=== PATIENT | female | born 1940 | race Caucasian/White ===

== ENCOUNTER 2021-09-10 13:06 | Inpatient (IN) ==
[2021-09-10] MEDS ORDERED: SODIUM CHLORIDE 0.9% 500 ML IV SCH (13:30)
--- NOTE | 2021-09-10 13:40 | Emergency Department Note ---
Impression & Plan Acute hyponatremia, Hypomagnesemia, Anemia, Hypocalcemia ED Provider Note NAME: LINDEN BARNES AGE: 80 SEX: F : 1940 ARRIVES VIA: Ambulance INFORMANT: [Patient][nursing] ED PROVIDER(S): [Joe Carlson MD] CHIEF COMPLAINT: Abnormal laboratories HISTORY OF PRESENT ILLNESS: The patient is a 80-year-old female who presents to the ED with a reportedly low sodium. She currently has no complaints. She is not short of breath, there is no chest pain or abdominal pain. There has been no urinary complaint. No vomiting or diarrhea. She denies being weak or dizzy. She is unsure why the lab work was performed. Looking at her records, her sodium was recorded at 120. REVIEW OF SYSTEMS: See HPI for pertinent positives and negatives. A total of ten systems were reviewed and were otherwise negative. PMHx/PSHx: See Below SOCIAL HISTORY: See Below. PHYSICAL EXAM: GENERAL: Patient is in no acute distress. HEENT: No acute trauma, normocephalic atraumatic, mucous membranes dry, no nasal congestion, no scleral icterus. NECK: No stridor, no adenopathy, no meningismus, trachea is midline. LUNGS: Clear to auscultation bilaterally when listening anterior, no wheeze, no rhonchi, breath sounds equal. HEART: 2/6 systolic murmur, regular rate and rhythm. ABDOMEN: Soft, nontender, bowel sounds positive, no peritonitis. EXTREMITIES: No cyanosis, moderate bilateral pedal edema, full range of motion of all the joints without pain or difficulty, no signs for acute trauma. NEUROLOGIC: Awake and alert, moves all extremities, no speech slur. SKIN: No rash, no jaundice, no diaphoresis. Rectal: Hemorrhoids noted with some blood on her depends. Digital exam reveals brown stool which is heme-negative. DIFFERENTIAL DIAGNOSIS: Infection, dehydration, metabolic abnormality, hypo/hyperglycemia, electrolyte disturbance, anemia, hypoxia, cardiac sources, medication reaction, renal failure, as well as other pathologies. EMERGENCY DEPARTMENT COURSE/PROCEDURES: ECG: Indication was electrolyte abnormalities. The ECG shows what appears to be a ventricular pacemaker with an underlying atrial flutter. There are inverted T waves in the inferior and lateral leads. No ST elevation. A PVC is seen. The QTc is 404. Compared to an ECG from 18 January 2020, the PVC is noted today. Today's pacemaker function is intermittent, not continuous. Continuous Cardiac Monitoring: An order was placed for continuous cardiac monitoring. The monitor shows a rate of 60 with a ventricular pacemaker. MEDICAL DECISION MAKING: There is no leukocytosis. The patient is anemic with a hemoglobin of 8.9. A rectal exam was performed, the stool was brown and heme-negative. Hemorrhoids were noted. There is a normal platelet count. Sodium was quite low at a critical value of 119. Chloride was also low. No renal failure. Magnesium low at 1.4. Calcium low at 7.9. No concerning liver enzyme elevation. The patient appeared to be in a euthyroid state. Urinalysis showed bacteria but no infection. Digoxin level was therapeutic. COVID test returned negative. Chest x-ray did not show pneumonia, some pulmonary congestion was noted. On exam, the patient did not appear febrile or toxic. She had no current complaints. Patient received IV saline, 1 L in total. She received IV magnesium. The patient is in need of a hospital stay. She has critical electrolyte abnormalities that require correction. I did speak with the patient and case management. The on-call hospitalist was consulted. 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 behavioral disturbance Tachy-karthik syndrome Surgical History H/O hysterectomy with oophorectomy History of appendectomy History of laparoscopic cholecystectomy Status post placement of cardiac pacemaker Family History Father Diabetes Mother Heart disease Hypertension Social History Smoking Status: Never smoker Hx Alcohol Use: Yes Hx Substance Use: No Preferred Language: Wallisian Communication Ability: Effective Outboard Motor Mechanic Required: No Beliefs That Will Affect Care: Buddhism Buddhism Beliefs: yarsanism Current Living Situation: Half-Way Feels Safe at Home: Yes Assistive Devices: Denture - Upper, Denture - Lower, Glasses and Walker Allergies Allergies Allergy/AdvReac Type Severity Reaction Status Date / Time Penicillins Allergy Intermediate Rash Verified 09/10/21 16:43 codeine AdvReac Intermediate Headache Verified 09/10/21 16:43 Opioids - Morphine Analogues AdvReac Intermediate Headache Verified 09/10/21 16:43 Influenza Virus Vaccines AdvReac Unknown Unknown Verified 09/10/21 16:43 Home Meds Home Medications Medication Instructions Recorded Confirmed digoxin 125 mcg (0.125 mg) tablet 125 mcg PO DAILY 01/18/20 09/10/21 (Lanoxin) docusate sodium 100 mg capsule 100 mg PO BID 01/18/20 09/10/21 escitalopram oxalate 10 mg tablet 10 mg PO DAILY 01/18/20 09/10/21 (Lexapro) levothyroxine 100 mcg tablet 100 mcg PO DAILY 01/18/20 09/10/21 (Levoxyl) metoprolol tartrate 100 mg tablet 100 mg BID 01/18/20 09/10/21 (Lopressor) pantoprazole 40 mg tablet,delayed 40 mg PO DAILY 01/18/20 09/10/21 release (Protonix) acetaminophen 325 mg tablet 650 mg PO Q4H PRN 09/10/21 09/10/21 (Tylenol) albuterol sulfate 90 mcg/actuation 2 puff INHALATION Q6H PRN 09/10/21 09/10/21 aerosol inhaler aspirin 81 mg tablet,delayed 81 mg PO DAILY 09/10/21 09/10/21 release atorvastatin 80 mg tablet 80 mg PO HS 09/10/21 09/10/21 clonidine HCl 0.1 mg tablet 0.1 mg PO BID 09/10/21 09/10/21 diphenhydramine HCl 25 mg capsule 25 mg PO DIRECTED PRN MDD 2 09/10/21 09/10/21 (Benadryl) DOSES/24 HOURS epinephrine 0.3 mg/0.3 mL 0.3 mg IM DIRECTED PRN 09/10/21 09/10/21 injection, auto-injector (EpiPen) fenofibrate nanocrystallized 48 mg 48 mg PO DAILY 09/10/21 09/10/21 tablet furosemide 40 mg tablet (Lasix) 40 mg PO BID 09/10/21 09/10/21 hydralazine 50 mg tablet 50 mg PO TID 09/10/21 09/10/21 magnesium hydroxide 400 mg/5 mL 30 ml PO DAILY PRN 09/10/21 09/10/21 oral suspension (Milk of Magnesia) melatonin 5 mg tablet 5 mg PO HS 09/10/21 09/10/21 metformin 500 mg tablet 500 mg PO DAILY 09/10/21 09/10/21 phenylephrine-witch satya 0.25 1 applic TOPICAL BID PRN 09/10/21 09/10/21 %-50 % topical gel (Preparation H (phenylephrine,witch satya)) potassium chloride 10 mEq 10 meq PO DAILY 09/10/21 09/10/21 capsule,extended release triamcinolone acetonide 0.1 % 1 applic TOPICAL BID PRN 09/10/21 09/10/21 topical cream vit C 250 mg-vit E 90 mg-zinc 40 1 tab PO BID 09/10/21 09/10/21 mg-copper 1 [id number] capsule (PreserVision AREDS-2) Results & Data (ED) Vital Signs Vital Signs - 24 hr 09/10/21 13:16 09/10/21 13:28 09/10/21 13:34 Temperature 37.2 C Temperature Source Oral Pulse Rate 64 62 60 Pulse Rate [Apical] 60 Pulse Rate from SpO2 Sensor 64 Pulse Rhythm Regular Regular Pulse Rhythm [Apical] Regular Pulse Strength Normal Pulse Strength [Apical] Normal Respiratory Rate 22 22 Respiratory Effort / Characteristics Non-Labored Non-Labored Spontaneous Respiratory Depth Normal Normal Respiratory Pattern Regular Regular Blood Pressure 135/59 L Blood Pressure [Right Arm] 135/59 L Blood Pressure Mean 84 Blood Pressure Mean [Right Arm] 84 Blood Pressure Position Lying Blood Pressure Position [Right Arm] Lying Pulse Oximetry 97 95 95 Oxygen Delivery Method Room Air Room Air Sepsis Recent Fever Within 48 Hours No Sepsis New/Unexplained Change in Mental Status No Sepsis Action Taken by Nursing No Action Required 09/10/21 14:47 09/10/21 14:48 09/10/21 15:00 Temperature Temperature Source Pulse Rate 66 63 Pulse Rate [Apical] Pulse Rate from SpO2 Sensor 67 67 61 Pulse Rhythm Pulse Rhythm [Apical] Pulse Strength Pulse Strength [Apical] Respiratory Rate 22 22 Respiratory Effort / Characteristics Respiratory Depth Respiratory Pattern Blood Pressure 136/62 131/72 Blood Pressure [Right Arm] Blood Pressure Mean 86 91 Blood Pressure Mean [Right Arm] Blood Pressure Position Blood Pressure Position [Right Arm] Pulse Oximetry 97 98 91 Oxygen Delivery Method Sepsis Recent Fever Within 48 Hours Sepsis New/Unexplained Change in Mental Status Sepsis Action Taken by Half-Way Medications Current Medication List: was personally reviewed by me Laboratory Data Attestation: I reviewed the patient's lab results. Result diagrams: 09/10/21 14:25 09/10/21 14:25 Lab Results 09/10/21 09/10/21 09/10/21 Range/Units 13:41 14:25 14:25 WBC 9.20 (4.8-10.8) K/ul RBC 3.17 L (3.93-5.22) M/uL Hgb 8.9 L (12.0-16.0) g/dl Hct 26.2 L (34.1-44.9) % MCV 82.6 (80.0-100.0) fL MCH 28.1 (25.0-34.0) pg MCHC 34.0 (32.0-36.0) g/dL RDW Std Deviation 53.0 H (36.4-46.3) fL RDW Coeff of Sb 17.4 H (11.5-14.5) % Plt Count 270 (130-400) K/uL MPV 8.7 L (9.4-12.3) fL Immature Gran % (Auto) 0.9 % Neut % (Auto) 79.3 % Lymph % (Auto) 6.2 % Dawson % (Auto) 9.8 % Eos % (Auto) 3.4 % Baso % (Auto) 0.4 % Neut # (Auto) 7.30 H (1.4-6.5) K/uL Lymph # (Auto) 0.57 L (1.2-3.4) K/uL Dawson # (Auto) 0.90 H (0.24-0.82) K/uL Eos # (Auto) 0.31 (0-0.50) K/uL Baso # (Auto) 0.04 (0-0.2) K/uL Immature Gran # (Auto) 0.08 H (0.00-0.02) K/uL Sodium 119 L* (136-145) mmol/L Potassium 4.0 (3.5-5.1) mmol/L Chloride 87 L (98-107) mmol/L Carbon Dioxide 27 (21-32) mmol/L Anion Gap 5 (3-11) BUN 8 (6-23) mg/dl Creatinine 0.69 (0.6-1.2) mg/dl Est Cr Clr Drug Dosing Not Reportable Est GFR ( Amer) 96.6 ml/min Est GFR (Non-Af Amer) 83.4 ml/min BUN/Creatinine Ratio 11.6 (10-20) Glucose 154 H (70-99(Fasting)) mg/dl Calcium 7.9 L (8.5-10.1) mg/dl Magnesium 1.4 L (1.7-2.4) mg/dl Total Bilirubin 0.9 (0.2-1.0) mg/dl AST 30 (13-39) U/L ALT 28 (7-52) U/L Alkaline Phosphatase 94 (34-104) U/L Total Protein 5.4 L (6.0-8.3) gm/dl Albumin 2.7 L (3.4-5.0) gm/dl Globulin 2.7 (2.5-4.0) gm/dl Albumin/Globulin Ratio 1.0 (0.9-2) TSH (0.300-4.500) uIu/ml Urine Color Yellow Urine Appearance Clear (Clear) Urine pH 7.5 (4.5-7.5) Ur Specific [place] 1.007 (1.000-1.030) Urine Protein Negative (Negative) Urine Glucose (UA) Negative (Negative) Urine Ketones Negative (Negative) Urine Blood Negative (Negative) Urine Nitrite Negative (Negative) Urine Bilirubin Negative (Negative) Urine Urobilinogen Negative (Negative) Ur Leukocyte Esterase Trace H (Negative) Urine WBC (Auto) 1-5 (0-5) /hpf Urine RBC (Auto) 0-4 (0-4) /hpf U Hyaline Cast (Auto) 1-5 (0-5) /lpf U Epithel Cells (Auto) 5-10 H (0-5) /lpf Urine Bacteria (Auto) 4+ H (Negative) Digoxin (0.8-2.0) ng/ml SARS-CoV-2, RNA, NAAT (NEGATIVE) 09/10/21 09/10/21 09/10/21 Range/Units 14:25 14:25 14:39 WBC (4.8-10.8) K/ul RBC (3.93-5.22) M/uL Hgb (12.0-16.0) g/dl Hct (34.1-44.9) % MCV (80.0-100.0) fL MCH (25.0-34.0) pg MCHC (32.0-36.0) g/dL RDW Std Deviation (36.4-46.3) fL RDW Coeff of Sb (11.5-14.5) % Plt Count (130-400) K/uL MPV (9.4-12.3) fL Immature Gran % (Auto) % Neut % (Auto) % Lymph % (Auto) % Dawson % (Auto) % Eos % (Auto) % Baso % (Auto) % Neut # (Auto) (1.4-6.5) K/uL Lymph # (Auto) (1.2-3.4) K/uL Dawson # (Auto) (0.24-0.82) K/uL Eos # (Auto) (0-0.50) K/uL Baso # (Auto) (0-0.2) K/uL Immature Gran # (Auto) (0.00-0.02) K/uL Sodium (136-145) mmol/L Potassium (3.5-5.1) mmol/L Chloride (98-107) mmol/L Carbon Dioxide (21-32) mmol/L Anion Gap (3-11) BUN (6-23) mg/dl Creatinine (0.6-1.2) mg/dl Est Cr Clr Drug Dosing Est GFR ( Amer) ml/min Est GFR (Non-Af Amer) ml/min BUN/Creatinine Ratio (10-20) Glucose (70-99(Fasting)) mg/dl Calcium (8.5-10.1) mg/dl Magnesium (1.7-2.4) mg/dl Total Bilirubin (0.2-1.0) mg/dl AST (13-39) U/L ALT (7-52) U/L Alkaline Phosphatase (34-104) U/L Total Protein (6.0-8.3) gm/dl Albumin (3.4-5.0) gm/dl Globulin (2.5-4.0) gm/dl Albumin/Globulin Ratio (0.9-2) TSH 0.572 (0.300-4.500) uIu/ml Urine Color Urine Appearance (Clear) Urine pH (4.5-7.5) Ur Specific [place] (1.000-1.030) Urine Protein (Negative) Urine Glucose (UA) (Negative) Urine Ketones (Negative) Urine Blood (Negative) Urine Nitrite (Negative) Urine Bilirubin (Negative) Urine Urobilinogen (Negative) Ur Leukocyte Esterase (Negative) Urine WBC (Auto) (0-5) /hpf Urine RBC (Auto) (0-4) /hpf U Hyaline Cast (Auto) (0-5) /lpf U Epithel Cells (Auto) (0-5) /lpf Urine Bacteria (Auto) (Negative) Digoxin 0.9 (0.8-2.0) ng/ml SARS-CoV-2, RNA, NAAT NEGATIVE (NEGATIVE) Administered Medications Discontinued Medications Sodium Chloride (Nss) 500 mls @ 999 mls/hr IV .Q31M LATOSHA Stop: 09/10/21 14:00 Last Infusion: 09/10/21 15:38 Dose: 0 mls/hr Documented by: [id number] Admin: 09/10/21 15:06 Dose: 999 mls/hr Documented by: [id number] Magnesium Sulfate/Dextrose (Magnesium Sulfate / D5w) 1 gm in 100 mls @ 100 mls/hr IV Q1H LATOSHA Stop: 09/10/21 17:37 Last Admin: 09/10/21 17:13 Dose: 100 mls/hr Documented by: [id number] Infusion: 09/10/21 17:13 Dose: 100 mls/hr Documented by: [id number] Admin: 09/10/21 16:15 Dose: 100 mls/hr Documented by: [id number] Sodium Chloride (Nss 1000ml) 500 mls @ 999 mls/hr IV .Q31M ONE Stop: 09/10/21 16:08 Last Infusion: 09/10/21 17:13 Dose: 0 mls/hr Documented by: [id number] Admin: 09/10/21 16:16 Dose: 999 mls/hr Documented by: [id number] Imaging Data Radiologist's Impression: Chest X-Ray 09/10/21 13:23 SINGLE VIEW CHEST CLINICAL HISTORY: Generalized weakness. FINDINGS: An AP, portable, upright chest radiograph is compared to study dated 01/18/2020. A 2-lead cardiac pacemaker is unchanged in position. The heart is enlarged noting atherosclerotic calcification of the thoracic aorta. There is prominence of the pulmonary vasculature. There is bibasilar scarring/atelectasis. A small pleural effusion is noted on the left. No pneumothorax is seen. The skeletal structures are osteopenic. The bony thorax is grossly intact. IMPRESSION: 1. Cardiomegaly and cardiac pacemaker with prominence of the pulmonary vasculature. Correlate clinically for mild fluid overload/congestive change. 2. Small left pleural effusion. ACT 112: Negative or not required by law. Electronically signed by: Joe Metzger M.D. 09/10/2021 1:51 PM Discharge Plan Visit Data Chief Complaint: Abnormal Labs/Diagnostic Testing ED Provider: Joe Carlson Discharge Problem: Acute hyponatremia, Hypomagnesemia, Anemia, Hypocalcemia Patient Disposition: Admitted As Inpatient Condition: Fair
--- NOTE | 2021-09-10 13:53 | XRay Report ---
SINGLE VIEW CHEST CLINICAL HISTORY: Generalized weakness. FINDINGS: An AP, portable, upright chest radiograph is compared to study dated 01/18/2020. A 2-lead c ardiac pacemaker is unchanged in position. The heart is enlarged noting atherosclerotic calcification of the thoracic aorta. There is prominence of the pulmonary vasculature. There is bibasilar scarring /atelectasis. A small pleural effusion is noted on the left. No pneumothorax is seen. The skeletal st ructures are osteopenic. The bony thorax is grossly intact. IMPRESSION: 1. Cardiomegaly and cardiac pacemaker with prominence of the pulmonary vasculature. Correlate clinica lly for mild fluid overload/congestive change. 2. Small left pleural effusion. ACT 112: Negative or not required by law. Electronically signed by: Joe Metzger M.D. 09/10/2021 1:51 PM
[2021-09-10 13:57] LABS: Appearance Urine Clear (Clear); Bacteria Urine Automated 4+ (Negative); Bilirubin Urine Negative (Negative); Blood Urine Negative (Negative); Color Urine Yellow; Glucose Urine UA Negative (Negative); Ketones Urine Negative (Negative); Leukocyte Esterase Urine Trace (Negative); Nitrite Urine Negative (Negative); Protein Urine Negative (Negative); RBC Urine Automated 0-4 /hpf (0-4); Specific Gravity Urine 1.007 (1.000-1.030); Urobilinogen Urine Negative (Negative); pH Urine 7.5 (4.5-7.5)
[2021-09-10 14:38] LABS: Basophils # (auto) 0.04 K/uL (0-0.2); Basophils % (auto) 0.4 %; Eosinophils # (auto) 0.31 K/uL (0-0.50); Eosinophils % (auto) 3.4 %; Hematocrit (blood only) 26.2 % (34.1-44.9); Hemoglobin 8.9 g/dl (12.0-16.0); Immature Granulocytes # (auto) 0.08 K/uL (0.00-0.02); Immature Granulocytes % (auto) 0.9 %; Lymphocytes # (auto) 0.57 K/uL (1.2-3.4); Lymphocytes % (auto) 6.2 %; Mean Corpuscular Hemoglobin 28.1 pg (25.0-34.0); Mean Corpuscular Volume 82.6 fL (80.0-100.0); Mean Platelet Volume 8.7 fL (9.4-12.3); Monocytes % (auto) 9.8 %; Neutrophils % (auto) 79.3 %; Platelet Count 270 K/uL (130-400); RDW Coefficient of Variation 17.4 % (11.5-14.5); Red Blood Count 3.17 M/uL (3.93-5.22)
--- NOTE | 2021-09-10 14:43 | Electrocardiogram Report ---
Test Reason : Blood Pressure : / mmHG Vent. Rate : 068 BPM Atrial Rate : 068 BPM P-R Int : 000 ms QRS Dur : 092 ms QT Int : 380 ms P-R-T Axes : 000 086 -50 degrees QTc Int : 404 ms Poor data quality, interpretation may be adversely affected Atrial fibrillation vs flutter with demand ventricular pacing Premature ventricular complexes Abnormal ECG Confirmed by Pérez Howell ([id number]) on 09/10/2021 2:43:44 PM Referred By: Delmis rankin [facility] Confirmed By:Pito Howell
[2021-09-10 15:34] LABS: Alanine Aminotransferase 28 U/L (7-52); Albumin Level 2.7 gm/dl (3.4-5.0); Alkaline Phosphatase 94 U/L (34-104); Anion Gap 5 (3-11); Aspartate Aminotransferase 30 U/L (13-39); BUN Creatinine Ratio 11.6 (10-20); Bilirubin,Total 0.9 mg/dl (0.2-1.0); Blood Urea Nitrogen 8 mg/dl (6-23); Calcium 7.9 mg/dl (8.5-10.1); Carbon Dioxide 27 mmol/L (21-32); Chloride 87 mmol/L (98-107); Est GFR (African American) 96.6 ml/min; Est GFR (Non-African American) 83.4 ml/min; Globulin 2.7 gm/dl (2.5-4.0); Glucose 154 mg/dl (70-99(Fasting)); Magnesium 1.4 mg/dl (1.7-2.4); Sodium 119 mmol/L (136-145); Total Protein 5.4 gm/dl (6.0-8.3)
[2021-09-10] MEDS ORDERED: SODIUM CHLORIDE 0.9% 1000ML 500 ML IV ONE (15:38)
[2021-09-10] MEDS: MAGNESIUM SULFATE / D5W 1 GM/100 ML BAG IV SCH ×2 (16:15→17:13)
--- NOTE | 2021-09-10 16:51 | History & Physical Report ---
Date of Service September 10, 2021 Assessment & Plan (1) Hyponatremia: Plan: Ongoing issue for past few months but acutely worsened over past week - unclear etiology - Admit for additional evaluation - IVF started in the ED with NSS - will continue for additional one liter then re-evaluate - Consult nephrology for additonal recommendations - Serum and urine osmolality, urine sodium - Hold Lasix until evaluated by nephrology - Repeat BMP tonight and in AM (2) Hypomagnesemia: Plan: Repleted in the ED - recheck this evening with additional repletion if needed (3) Anemia: Plan: Unclear if acute or chronic issue. No indication for transfusion at present - POLST form does not specify pt's wishes on transfusion so if H&H drop further and transfusion indicated, will need to discuss with daughter/POA - Iron studies, B12, folate, retic count ordered - Follow H&H for stability (4) Late onset Alzheimer's dementia without behavioral disturbance: (5) Atrial fibrillation: (6) History of hemorrhagic cerebrovascular accident (CVA) with residual deficit: (7) Diabetes mellitus, type 2: Plan: - Check A1c in AM - Diabetic diet - Insulin sliding scale (8) Hypertension: (9) Hypothyroidism: (10) Dyslipidemia: Plan: Continue other home medications as appropriate Pt seen and reviewed with collaborating physician, Dr. Dash. Plan of care discussed and as outlined above. DVT Prophylaxis: SCDs for now in view of prior hemorrhagic CVA and anemia - may need to reevaluate pending clinical course Code Status: DNR/DNI as per my discussion with pt's daughter, Awilda Jordan (POA - [phone]) Katt Simmons PA-C History of Present Illness Chief Complaint: Low sodium Primary Care Provider: Angelia Benites 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 History from the patient is limited due to the dementia so additional history was obtained from the chart and from the daughter, Awilda, by phone. Per pt's daughter, pt had worsening issues w ith fluid retention in spring. She has been following closely with cardiology and had her diuretics adjusted. Outpatient chart shows a weight of 178 lbs on 07/12/21 and 145 lbs on 09/06/21. However, there have been some ongoing issues with sodium being low during this process. Spironolactone was apparently discontinued with some transient improvement in sodium but now worsening again. Outpatient labs today to follow-up on low sodium last week showed worsening with today's value being 120. Sodium had been in the 125-127 range previously. Per daughter, edema is improved from two months ago although still present. Since her hemorrhagic stroke in 2019, pt has had issues with confusion and memory loss. She may talk about her mother who is like she is still living or confuse the radio DJ in the car with someone being in the backseat. However, her daughter feels like confusion has been worse over the last several days. Her appetite has also been poor - she apparently mainly eats soup and drinks juice. Pt reports that she doesn't drink much water. Records from [facility] showed that pt is on a 4500 ml/day fluid restriction. Pt denies any rectal bleeding other than from hemorrhoids. It is unclear if anemia noted on labs today is acute or chronic issue. No other recent blood loss that family is aware of. Allergies Allergy/AdvReac Type Severity Reaction Status Date / Time Penicillins Allergy Intermediate Rash Verified 09/10/21 16:43 codeine AdvReac Intermediate Headache Verified 09/10/21 16:43 Opioids - Morphine Analogues AdvReac Intermediate Headache Verified 09/10/21 16:43 Influenza Virus Vaccines AdvReac Unknown Unknown Verified 09/10/21 16:43 Home Medications Medication Instructions Recorded Confirmed Type digoxin 125 mcg (0.125 mg) tablet 125 mcg PO DAILY 01/18/20 09/10/21 History (Lanoxin) docusate sodium 100 mg capsule 100 mg PO BID 01/18/20 09/10/21 History escitalopram oxalate 10 mg tablet 10 mg PO DAILY 01/18/20 09/10/21 History (Lexapro) levothyroxine 100 mcg tablet 100 mcg PO DAILY 01/18/20 09/10/21 History (Levoxyl) metoprolol tartrate 100 mg tablet 100 mg BID 01/18/20 09/10/21 History (Lopressor) pantoprazole 40 mg tablet,delayed 40 mg PO DAILY 01/18/20 09/10/21 History release (Protonix) acetaminophen 325 mg tablet 650 mg PO Q4H PRN 09/10/21 09/10/21 History (Tylenol) albuterol sulfate 90 mcg/actuation 2 puff INHALATION Q6H PRN 09/10/21 09/10/21 History aerosol inhaler aspirin 81 mg tablet,delayed 81 mg PO DAILY 09/10/21 09/10/21 History release atorvastatin 80 mg tablet 80 mg PO HS 09/10/21 09/10/21 History clonidine HCl 0.1 mg tablet 0.1 mg PO BID 09/10/21 09/10/21 History diphenhydramine HCl 25 mg capsule 25 mg PO DIRECTED PRN MDD 2 09/10/21 09/10/21 History (Benadryl) DOSES/24 HOURS epinephrine 0.3 mg/0.3 mL 0.3 mg IM DIRECTED PRN 09/10/21 09/10/21 History injection, auto-injector (EpiPen) fenofibrate nanocrystallized 48 mg 48 mg PO DAILY 09/10/21 09/10/21 History tablet furosemide 40 mg tablet (Lasix) 40 mg PO BID 09/10/21 09/10/21 History hydralazine 50 mg tablet 50 mg PO TID 09/10/21 09/10/21 History magnesium hydroxide 400 mg/5 mL 30 ml PO DAILY PRN 09/10/21 09/10/21 History oral suspension (Milk of Magnesia) melatonin 5 mg tablet 5 mg PO HS 09/10/21 09/10/21 History metformin 500 mg tablet 500 mg PO DAILY 09/10/21 09/10/21 History phenylephrine-witch satya 0.25 1 applic TOPICAL BID PRN 09/10/21 09/10/21 History %-50 % topical gel (Preparation H (phenylephrine,witch satya)) potassium chloride 10 mEq 10 meq PO DAILY 09/10/21 09/10/21 History capsule,extended release triamcinolone acetonide 0.1 % 1 applic TOPICAL BID PRN 09/10/21 09/10/21 History topical cream vit C 250 mg-vit E 90 mg-zinc 40 1 tab PO BID 09/10/21 09/10/21 History mg-copper 1 [id number] capsule (PreserVision AREDS-2) 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 behavioral disturbance Tachy-karthik syndrome Surgical History H/O hysterectomy with oophorectomy History of appendectomy History of laparoscopic cholecystectomy Status post placement of cardiac pacemaker Family History Father Diabetes Mother Heart disease Hypertension Social History Smoking Status: Never smoker Second Hand Exposure: Yes; Do You Dip or Chew Tobacco: No; Tobacco Cessation Education Requested by Patient: No Hx Alcohol Use: Yes Alcohol type: hard liquor Hx Substance Use: No Preferred Language: Sinhala Communication Ability: Effective Stator Winder Required: No Beliefs That Will Affect Care: None Current Living Situation: Correction Current Living Situation Comment: [facility] Other Information That Helps Us Care for You: No Feels Safe at Home: Yes Safety Concerns: Feels Safe At This Time Assistive Devices: Denture - Upper and Glasses Review of Systems Review of Systems: Limited due to underlying dementia - see HPI Physical Exam Constitutional: well developed and well nourished; no acute distress Eyes: + anicteric sclerae ENMT: external ear and nose normal, oropharynx normal Neck: trachea midline Respiratory: no respiratory distress and no labored breathing Auscultation: + diminished lung sounds; no rales, no rhonchi and no wheezes Cardiovascular: Rate/Rhythm: + irregularly irregular Vessels: radial pulses present Extremities: + edema (bilateral, 2+) compression stockings in place Gastrointestinal (Abdomen): Inspection/Auscultation: normal bowel sounds; abdo men not distended Percussion/Palpation: abdomen soft; abdomen nontender Musculoskeletal: Head/Neck/Chest: normocephalic, head atraumatic and neck supple Skin: no jaundice Neurologic: moves all extremities and + confused Results & Data Results & Data ([facility]) Vital Signs (Past 12 Hours) Vital Signs Temp Pulse Pulse Resp BP BP Pulse Ox 09/10/21 15:00 63 22 131/72 91 09/10/21 14:48 66 22 136/62 98 09/10/21 14:47 97 09/10/21 13:34 37.2 C 60 22 135/59 L 95 09/10/21 13:28 62 60 22 135/59 L 95 09/10/21 13:16 64 22 97 Diagnostic Findings Laboratory Results - last 24 hr 09/10/21 09/10/21 09/10/21 13:41 14:25 14:25 WBC 9.20 RBC 3.17 L Hgb 8.9 L Hct 26.2 L MCV 82.6 MCH 28.1 MCHC 34.0 RDW Std Deviation 53.0 H RDW Coeff of Sb 17.4 H Plt Count 270 MPV 8.7 L Immature Gran % (Auto) 0.9 Neut % (Auto) 79.3 Lymph % (Auto) 6.2 [place] % (Auto) 9.8 Eos % (Auto) 3.4 Baso % (Auto) 0.4 Neut # (Auto) 7.30 H Lymph # (Auto) 0.57 L [place] # (Auto) 0.90 H Eos # (Auto) 0.31 Baso # (Auto) 0.04 Immature Gran # (Auto) 0.08 H Sodium 119 L* Potassium 4.0 Chloride 87 L Carbon Dioxide 27 Anion Gap 5 BUN 8 Creatinine 0.69 Est Cr Clr Drug Dosing Not Reportable Est GFR ( Amer) 96.6 Est GFR (Non-Af Amer) 83.4 BUN/Creatinine Ratio 11.6 Glucose 154 H Calcium 7.9 L Magnesium 1.4 L Total Bilirubin 0.9 AST 30 ALT 28 Alkaline Phosphatase 94 Total Protein 5.4 L Albumin 2.7 L Globulin 2.7 Albumin/Globulin Ratio 1.0 TSH Urine Color Yellow Urine Appearance Clear Urine pH 7.5 Ur Specific [place] 1.007 Urine Protein Negative Urine Glucose (UA) Negative Urine Ketones Negative Urine Blood Negative Urine Nitrite Negative Urine Bilirubin Negative Urine Urobilinogen Negative Ur Leukocyte Esterase Trace H Urine WBC (Auto) 1-5 Urine RBC (Auto) 0-4 U Hyaline Cast (Auto) 1-5 U Epithel Cells (Auto) 5-10 H Urine Bacteria (Auto) 4+ H Digoxin SARS-CoV-2, RNA, NAAT 09/10/21 09/10/21 09/10/21 14:25 14:25 14:39 WBC RBC Hgb Hct MCV MCH MCHC RDW Std Deviation RDW Coeff of Sb Plt Count MPV Immature Gran % (Auto) Neut % (Auto) Lymph % (Auto) [place] % (Auto) Eos % (Auto) Baso % (Auto) Neut # (Auto) Lymph # (Auto) [place] # (Auto) Eos # (Auto) Baso # (Auto) Immature Gran # (Auto) Sodium Potassium Chloride Carbon Dioxide Anion Gap BUN Creatinine Est Cr Clr Drug Dosing Est GFR ( Amer) Est GFR (Non-Af Amer) BUN/Creatinine Ratio Glucose Calcium Magnesium Total Bilirubin AST ALT Alkaline Phosphatase Total Protein Albumin Globulin Albumin/Globulin Ratio TSH 0.572 Urine Color Urine Appearance Urine pH Ur Specific [place] Urine Protein Urine Glucose (UA) Urine Ketones Urine Blood Urine Nitrite Urine Bilirubin Urine Urobilinogen Ur Leukocyte Esterase Urine WBC (Auto) Urine RBC (Auto) U Hyaline Cast (Auto) U Epithel Cells (Auto) Urine Bacteria (Auto) Digoxin 0.9 SARS-CoV-2, RNA, NAAT NEGATIVE Medications Administered Magnesium Sulfate/Dextrose (Magnesium Sulfate / D5w) 1 gm in 100 mls @ 100 mls/hr IV Q1H LATOSHA Stop: 09/10/21 17:37 Last Admin: 09/10/21 17:13 Dose: 100 mls/hr Documented by: [id number] Infusion: 09/10/21 17:13 Dose: 100 mls/hr Documented by: [id number] Admin: 09/10/21 16:15 Dose: 100 mls/hr Documented by: [id number] Discontinued Medications Sodium Chloride (Nss) 500 mls @ 999 mls/hr IV .Q31M LATOSHA Stop: 09/10/21 14:00 Last Infusion: 09/10/21 15:38 Dose: 0 mls/hr Documented by: [id number] Admin: 09/10/21 15:06 Dose: 999 mls/hr Documented by: [id number] Sodium Chloride (Nss 1000ml) 500 mls @ 999 mls/hr IV .Q31M ONE Stop: 09/10/21 16:08 Last Infusion: 09/10/21 17:13 Dose: 0 mls/hr Documented by: [id number] Admin: 09/10/21 16:16 Dose: 999 mls/hr Documented by: [id number] Code Status & VTE Plan VTE Prophylaxis Plan VTE Prophylaxis will be ordered: Yes Supervising Physician Co-Signing Physician Notes Pt was seen and examined. Agreed with [facility] exam, assessment and plan. 80 y/o female with a PMH of hemorrhagic CVA due to amyloid angiography while on warfarin (11/20), acute on chronic CHF, chronic atrial fibrillation with tachy- karthik syndrome s/p PPM, HTN, chronic multifactorial LE edema, dyslipidemia, DM2, and dementia was sent to the ED for hyponatremia. Pt has been diuresis well. Pt had outpatient lab done today that showed Na 120. As per [facility] document, pt was on a 4.5 Liter fluid restriction. As per daughter pt confusion has been getting worst. repeat BMP in the ER with Na 119. Received IVF in the ER. Hyponatremia- Will fgive an additional 1 L NSS. will hold diuretic for now Will repeat BMP later. Nephrology consult. Continue monitor closely. MD Ekta
[2021-09-10] MEDS ORDERED: SODIUM CHLORIDE 0.9% 1000ML 1,000 ML IV SCH (17:45)
[2021-09-10] MEDS ORDERED: GLUCOSE 40% GEL 15 GM TUBE PO PRN (18:08)
[2021-09-10] MEDS ORDERED: ACETAMINOPHEN 325 MG TAB PO PRN (18:08)
[2021-09-10] MEDS ORDERED: CARBOHYDRATES FOR HYPOGLYCEMIA PO PRN (18:08)
[2021-09-10] MEDS ORDERED: DEXTROSE 50% 50 ML SYRINGE IV PRN (18:08)
[2021-09-10] MEDS ORDERED: GLUCAGON FOR INJ 1 MG VIAL SQ PRN (18:08)
[2021-09-10] MEDS ORDERED: GLUCOSE 10 TAB/TUBE PO PRN (18:08)
[2021-09-10] MEDS ORDERED: ONDANSETRON INJ 2 MG/ML 2 ML VIAL IV PRN (18:13)
[2021-09-10 20:01] LABS: Reticulocyte % 2.4 % (0.5-2.0); Reticulocytes # 0.08 10^6/uL (0.02-0.10)
[2021-09-10 20:24] LABS: BUN Creatinine Ratio 10.8 (10-20); Creatinine Clr Calc Pharmacy 66.8 ml/min; Est GFR (African American) 98.6 ml/min; Potassium 3.7 mmol/L (3.5-5.1)
[2021-09-10] MEDS: ATORVASTATIN 40 MG TAB PO SCH (20:32)
[2021-09-10] MEDS: cloNIDine HCL 0.1 MG TAB PO SCH (20:34)
[2021-09-10] MEDS: DOCUSATE SODIUM 100 MG CAP PO SCH (20:35)
[2021-09-10] MEDS: hydrALAZINE TAB 50 MG TAB PO SCH (20:36)
[2021-09-10] MEDS: MELATONIN 3 MG TAB PO SCH (20:37)
[2021-09-10] MEDS: METOPROLOL TARTRATE 100 MG TAB PO SCH (20:37)
[2021-09-10 20:41] LABS: Ferritin 154.7 ng/ml (8-388)
[2021-09-10 21:08] LABS: Folate (Folic Acid) 13.18 ng/ml (>5.38)
[2021-09-10] MEDS: INSULIN ASPART PER UNIT SC SCH (22:13)
[2021-09-11] MEDS: LEVOTHYROXINE SODIUM 100 MCG TABLET PO SCH (05:45)
[2021-09-11 07:23] LABS: Basophils # (auto) 0.04 K/uL (0-0.2); Basophils % (auto) 0.7 %; Eosinophils # (auto) 0.35 K/uL (0-0.50); Eosinophils % (auto) 5.7 %; Hematocrit (blood only) 21.9 % (34.1-44.9); Hemoglobin 7.5 g/dl (12.0-16.0); Immature Granulocytes # (auto) 0.04 K/uL (0.00-0.02); Immature Granulocytes % (auto) 0.7 %; Lymphocytes # (auto) 0.59 K/uL (1.2-3.4); Lymphocytes % (auto) 9.6 %; Mean Corpuscular Hgb Conc 34.2 g/dL (32.0-36.0); Mean Corpuscular Volume 81.7 fL (80.0-100.0); Mean Platelet Volume 8.8 fL (9.4-12.3); Monocytes # (auto) 0.78 K/uL (0.24-0.82); Monocytes % (auto) 12.7 %; Neutrophils # (auto) 4.34 K/uL (1.4-6.5); Neutrophils % (auto) 70.6 %; Platelet Count 219 K/uL (130-400); RDW Coefficient of Variation 17.4 % (11.5-14.5); RDW Standard Deviation 51.5 fL (36.4-46.3); Red Blood Count 2.68 M/uL (3.93-5.22); White Blood Count 6.14 K/ul (4.8-10.8)
[2021-09-11 07:45] LABS: BUN Creatinine Ratio 12.7 (10-20); Calcium 7.8 mg/dl (8.5-10.1); Creatinine Clr Calc Pharmacy 78.9 ml/min; Est GFR (African American) 104.1 ml/min; Est GFR (Non-African American) 89.8 ml/min; Potassium 3.8 mmol/L (3.5-5.1)
[2021-09-11 07:56] LABS: Estimated Average Glucose 105 mg/dl; Hemoglobin A1C 5.3 % (4.5-5.6)
[2021-09-11] MEDS: INSULIN ASPART PER UNIT SC SCH ×4 (08:11→20:20)
[2021-09-11] MEDS: ASPIRIN 81 MG ECTAB PO SCH (08:11)
[2021-09-11] MEDS: cloNIDine HCL 0.1 MG TAB PO SCH ×3 (08:12→19:56)
[2021-09-11] MEDS: METOPROLOL TARTRATE 100 MG TAB PO SCH ×3 (08:12→19:56)
[2021-09-11] MEDS: hydrALAZINE TAB 50 MG TAB PO SCH (08:12)
[2021-09-11] MEDS: DOCUSATE SODIUM 100 MG CAP PO SCH ×3 (08:12→19:56)
[2021-09-11] MEDS: POTASSIUM CHLORIDE 10 MEQ TABCR PO SCH (08:13)
[2021-09-11] MEDS: FENOFIBRATE NANOCRYSTALLIZED 48 MG TABLET PO SCH (08:13)
[2021-09-11] MEDS: PANTOprazole 40 MG TAB PO SCH (08:13)
[2021-09-11] MEDS: ESCITALOPRAM OXALATE 10 MG TAB PO SCH (08:13)
--- NOTE | 2021-09-11 13:27 | Hospitalist Progress Note ---
Date of Service September 11, 2021 Assessment & Plan (1) Hyponatremia: Plan: Ongoing issue for past few months but acutely worsened over past week Na 119 on admission Serum osm 256 Uosm 208 Jessica 11 Hyponatremia likely due to poor solute diet + home diuretic Got IVF NSS on admission Na is 126 today Follow up Nephrology consult Lasix on hold Monitor Na (2) Hypomagnesemia: Plan: Mag was 1.4 on admission Got repletion Recheck today (3) Anemia: Plan: Last Hb from 08/2018 was 16.3 from [facility] Hb was 8.9 on admission but is 7.5 today. RN reported bloody bowel movement this AM (blood mixed in stool). Patient has hemorrhoid on exam Possible hemorrhoidal bleed Considering acute drop which could be due to this plus dilutional from IVF, will appreciate GI recommendations Anemia work up Monitor Hb Per admitting provider, POLST form does not specify pt's wishes on transfusion so if H&H drop further and transfusion indicated, will need to discuss with daughter/POA (4) Late onset Alzheimer's dementia without behavioral disturbance: (5) Atrial fibrillation: (6) History of hemorrhagic cerebrovascular accident (CVA) with residual deficit: (7) Diabetes mellitus, type 2: Plan: A1c pending Diabetic diet Insulin sliding scale (8) Hypertension: Plan: BP running low at 98/46 this afternoon Home hydralazine tid put on hold. Continue other meds for now and monitor (9) Hypothyroidism: Plan: Continue levothyroxine (10) Dyslipidemia: Plan: DVT Prophylaxis: SCDs for now in view of prior hemorrhagic CVA and possible GI bleed Code Status: DNR/DNI. Pt's daughter, Awilda Jordan (POA - [phone]) Admission and Anticipated Discharge Date Admission Date: September 10, 2021 Subjective 80-year-old woman with history of hemorrhagic CVA due to amyloid while on warfarin, CHF, atrial fibrillation with tachybradycardia syndrome status post pacemaker, hypertension, diabetes mellitus, dementia who was brought in from [facility] for worsening hyponatremia. Patient is a poor historian. Reports occasional dizziness, exertional dyspnea Denies palpitations, chest pain or shortness of breath at rest Denies cough Denies nausea, vomiting, abdominal pain, rectal pain. Reports occasional blood in stool. RN reported that bowel movement this morning was blood mixed with stool. Denied dysuria or frequency prior to presentation Physical Exam Constitutional: + well hydrated; no acute distress Elderly woman Eyes: PERRL, conjunctivae normal, anicteric sclerae ENMT: external ear and nose normal, oropharynx normal Respiratory: normal respiratory effort; no respiratory distress Diminished breath sounds. No crackles or wheeze Cardiovascular: Rate/Rhythm: + irregularly irregular S1 S2 Gastrointestinal (Abdomen): normal bowel sounds, soft, nontender, no hepatosplenomegaly Rectal Exam: + hemorrhoids Musculoskeletal: +pedal edema Neurologic: PERRL, EOMI, accommodation nl, no face palsy, no dysarthria Alert and oriented to person, not oriented to place but knew month and year Results & Data Results & Data ([facility]) Vital Signs (Past 12 Hours) Vital Signs Temp Pulse Pulse Resp BP Pulse Ox 09/11/21 07:16 37.1 C 66 18 108/50 L 93 09/11/21 03:39 36.7 C 63 12 119/57 L 93 09/11/21 00:13 71 09/11/21 00:09 68 Laboratory Results Abnormal lab results 09/10/21 09/10/21 09/10/21 Range/Units 13:41 14:25 14:25 RBC 3.17 L (3.93-5.22) M/uL Hgb 8.9 L (12.0-16.0) g/dl Hct 26.2 L (34.1-44.9) % RDW Std Deviation 53.0 H (36.4-46.3) fL RDW Coeff of Sb 17.4 H (11.5-14.5) % MPV 8.7 L (9.4-12.3) fL Reticulocyte % (Auto) (0.5-2.0) % Neut # (Auto) 7.30 H (1.4-6.5) K/uL Lymph # (Auto) 0.57 L (1.2-3.4) K/uL [place] # (Auto) 0.90 H (0.24-0.82) K/uL Immature Gran # (Auto) 0.08 H (0.00-0.02) K/uL Sodium 119 L* (136-145) mmol/L Chloride 87 L (98-107) mmol/L Creatinine (0.6-1.2) mg/dl Glucose 154 H (70-99(Fasting)) mg/dl POC Glucose (70-99) mg/dl Osmolality (280-300) mOsm/kg Calcium 7.9 L (8.5-10.1) mg/dl Magnesium 1.4 L (1.7-2.4) mg/dl Iron (35-150) mcg/dl Unsaturated IBC (155-355) mcg/dl Transferrin (200-360) mg/dl Total Protein 5.4 L (6.0-8.3) gm/dl Albumin 2.7 L (3.4-5.0) gm/dl Ur Leukocyte Esterase Trace H (Negative) U Epithel Cells (Auto) 5-10 H (0-5) /lpf Urine Bacteria (Auto) 4+ H (Negative) Urine Osmolality (500-800) mOsm/kg 09/10/21 09/10/21 09/10/21 Range/Units 18:52 19:55 19:55 RBC (3.93-5.22) M/uL Hgb (12.0-16.0) g/dl Hct (34.1-44.9) % RDW Std Deviation (36.4-46.3) fL RDW Coeff of Sb (11.5-14.5) % MPV (9.4-12.3) fL Reticulocyte % (Auto) (0.5-2.0) % Neut # (Auto) (1.4-6.5) K/uL Lymph # (Auto) (1.2-3.4) K/uL [place] # (Auto) (0.24-0.82) K/uL Immature Gran # (Auto) (0.00-0.02) K/uL Sodium 122 L (136-145) mmol/L Chloride 89 L (98-107) mmol/L Creatinine (0.6-1.2) mg/dl Glucose 120 H (70-99(Fasting)) mg/dl POC Glucose 112 H (70-99) mg/dl Osmolality (280-300) mOsm/kg Calcium 8.0 L (8.5-10.1) mg/dl Magnesium 1.6 L (1.7-2.4) mg/dl Iron 33 L (35-150) mcg/dl Unsaturated IBC (155-355) mcg/dl Transferrin 137 L (200-360) mg/dl Total Protein (6.0-8.3) gm/dl Albumin (3.4-5.0) gm/dl Ur Leukocyte Esterase (Negative) U Epithel Cells (Auto) (0-5) /lpf Urine Bacteria (Auto) (Negative) Urine Osmolality (500-800) mOsm/kg 09/10/21 09/10/21 09/10/21 Range/Units 19:55 19:55 20:42 RBC (3.93-5.22) M/uL Hgb (12.0-16.0) g/dl Hct (34.1-44.9) % RDW Std Deviation (36.4-46.3) fL RDW Coeff of Sb (11.5-14.5) % MPV (9.4-12.3) fL Reticulocyte % (Auto) 2.4 H (0.5-2.0) % Neut # (Auto) (1.4-6.5) K/uL Lymph # (Auto) (1.2-3.4) K/uL [place] # (Auto) (0.24-0.82) K/uL Immature Gran # (Auto) (0.00-0.02) K/uL Sodium (136-145) mmol/L Chloride (98-107) mmol/L Creatinine (0.6-1.2) mg/dl Glucose (70-99(Fasting)) mg/dl POC Glucose 133 H (70-99) mg/dl Osmolality 256 L (280-300) mOsm/kg Calcium (8.5-10.1) mg/dl Magnesium (1.7-2.4) mg/dl Iron (35-150) mcg/dl Unsaturated IBC (155-355) mcg/dl Transferrin (200-360) mg/dl Total Protein (6.0-8.3) gm/dl Albumin (3.4-5.0) gm/dl Ur Leukocyte Esterase (Negative) U Epithel Cells (Auto) (0-5) /lpf Urine Bacteria (Auto) (Negative) Urine Osmolality (500-800) mOsm/kg 09/10/21 09/11/21 09/11/21 Range/Units 22:34 06:56 06:56 RBC 2.68 L (3.93-5.22) M/uL Hgb 7.5 L (12.0-16.0) g/dl Hct 21.9 L (34.1-44.9) % RDW Std Deviation 51.5 H (36.4-46.3) fL RDW Coeff of Sb 17.4 H (11.5-14.5) % MPV 8.8 L (9.4-12.3) fL Reticulocyte % (Auto) (0.5-2.0) % Neut # (Auto) (1.4-6.5) K/uL Lymph # (Auto) 0.59 L (1.2-3.4) K/uL [place] # (Auto) (0.24-0.82) K/uL Immature Gran # (Auto) 0.04 H (0.00-0.02) K/uL Sodium 126 L (136-145) mmol/L Chloride 95 L (98-107) mmol/L Creatinine 0.55 L (0.6-1.2) mg/dl Glucose (70-99(Fasting)) mg/dl POC Glucose (70-99) mg/dl Osmolality (280-300) mOsm/kg Calcium 7.8 L (8.5-10.1) mg/dl Magnesium (1.7-2.4) mg/dl Iron (35-150) mcg/dl Unsaturated IBC (155-355) mcg/dl Transferrin (200-360) mg/dl Total Protein (6.0-8.3) gm/dl Albumin (3.4-5.0) gm/dl Ur Leukocyte Esterase (Negative) U Epithel Cells (Auto) (0-5) /lpf Urine Bacteria (Auto) (Negative) Urine Osmolality 208 L (500-800) mOsm/kg 09/11/21 09/11/21 09/11/21 Range/Units 06:56 07:15 11:28 RBC (3.93-5.22) M/uL Hgb (12.0-16.0) g/dl Hct (34.1-44.9) % RDW Std Deviation (36.4-46.3) fL RDW Coeff of Sb (11.5-14.5) % MPV (9.4-12.3) fL Reticulocyte % (Auto) (0.5-2.0) % Neut # (Auto) (1.4-6.5) K/uL Lymph # (Auto) (1.2-3.4) K/uL [place] # (Auto) (0.24-0.82) K/uL Immature Gran # (Auto) (0.00-0.02) K/uL Sodium (136-145) mmol/L Chloride (98-107) mmol/L Creatinine (0.6-1.2) mg/dl Glucose (70-99(Fasting)) mg/dl POC Glucose 103 H 119 H (70-99) mg/dl Osmolality (280-300) mOsm/kg Calcium (8.5-10.1) mg/dl Magnesium (1.7-2.4) mg/dl Iron (35-150) mcg/dl Unsaturated IBC 116 L (155-355) mcg/dl Transferrin (200-360) mg/dl Total Protein (6.0-8.3) gm/dl Albumin (3.4-5.0) gm/dl Ur Leukocyte Esterase (Negative) U Epithel Cells (Auto) (0-5) /lpf Urine Bacteria (Auto) (Negative) Urine Osmolality (500-800) mOsm/kg
[2021-09-11 14:48] LABS: Magnesium 1.6 mg/dl (1.7-2.4); Phosphorus 2.8 mg/dl (2.5-4.9)
[2021-09-11 14:59] LABS: BUN Creatinine Ratio 13.6 (10-20); Calcium 7.8 mg/dl (8.5-10.1); Creatinine Clr Calc Pharmacy 73.6 ml/min; Est GFR (African American) 101.7 ml/min; Est GFR (Non-African American) 87.8 ml/min; Potassium 4.1 mmol/L (3.5-5.1)
--- NOTE | 2021-09-11 16:02 | Consultation Report ---
NEPHROLOGY CONSULTATION NOTE DATE OF CONSULTATION: 09/11/2021. REASON FOR CONSULTATION: Hyponatremia. HISTORY OF PRESENT ILLNESS: The patient is a 80-year-old female who has worsening dementia and is a resident of [facility]. She was referred to the hospital because of worsening hyponatremia. Serum sodium was 119 yesterday. However, the patient has chronic hyponatremia issue with a serum sodium in the 125-127 range. The patient does take Lasix 40 twice daily. She used to be on spironolactone also, but has been stopped. She has chronic congestive heart failure as well as chronic atrial fibrillation, tachybrady syndrome, and chronic lower extremity edema for which she takes Lasix. She has been followed closely with Cardiology and her diuretics were adjusted. Her appetite has been going down rapidly and at this point, she basically drinks water and juice and hardly any solid food. I cannot obtain any history from the patient because of confusion. Serum sodium since being admitted has been steadily going up. She did receive some IV fluid. Serum sodium has gone from 119-226 this morning and most recently 125, IV fluid has been stopped this morning. PAST MEDICAL HISTORY: Includes atrial fibrillation, cerebral amyloid angiopathy, CVA, type 2 diabetes, dyslipidemia, history of basal cell cancer, hypertension, hypothyroidism, Alzheimer dementia, tachybrady syndrome. PAST SURGICAL HISTORY: Hysterectomy and oophorectomy, appendicectomy, laparoscopic cholecystectomy, status post placement of cardiac pacemaker. SOCIAL HISTORY: Never smoked. REVIEW OF SYSTEMS: Unable to obtain. MEDICATIONS: Home medication list is very extensive and was reviewed in detail. Of special interest to Nephrology, she was on Lasix 40 twice daily. ALLERGIES: PENICILLIN, CODEINE, OPIATES, INFLUENZA. PHYSICAL EXAMINATION: GENERAL: Elderly white female who is not in any overt respiratory distress. She is awake and alert, but not oriented. HEENT: Mucous membranes are moist. NECK: Supple. No JVD. CHEST: Bilateral decreased breath sound because of lack of inspiratory effort. CARDIOVASCULAR: S1 and S2, irregular. ABDOMEN: Soft, nontender. EXTREMITIES: Show 1+ edema. Compression stockings in place. VITAL SIGNS: Blood pressure 98/46, pulse rate 67, temperature 36.6, 93% on room air. LABORATORY TEST: Reviewed in detail. Urine osmolality 208. Urine sodium 11. Chest x-ray does show some cardiomegaly with prominence of pulmonary vasculature as well as small left pleural effusion. Serum sodium 119 on admission, now it is 125. ASSESSMENT AND PLAN: A 80-year-old female with acute on chronic hyponatremia. Hyponatremia: This is acute on chronic, as she does have a history of chronic hyponatremia with a sodium ranging in the 125-127 range. On admission was 119, but with some gentle IV fluid, it did get better to 126. Now, she is back to her baseline sodium range. rate of correction is fine. No further workup is needed. I would continue to hold the Lasix at least for today. Depending on her labs tomorrow, we will decide. At this point, we can do labs once daily as she is already back to her baseline range. Also in advanced dementia patient not unusual to see Chronic low na nazia when they have very poor protein intake and relatively high fluid intake. We will have to accept na 125 for her ongoing management balancing the CHF and Low na+. Thank you very much for the consult. Job ID: [id number] ANDERSON
[2021-09-11] MEDS: DIGOXIN 0.125 MG TAB PO SCH (16:46)
[2021-09-11 19:27] LABS: Hematocrit (blood only) 25.1 % (34.1-44.9); Hemoglobin 8.6 g/dl (12.0-16.0)
[2021-09-11] MEDS: ATORVASTATIN 40 MG TAB PO SCH ×2 (19:50→19:55)
[2021-09-11] MEDS: MELATONIN 3 MG TAB PO SCH (22:00)
[2021-09-12] MEDS: LEVOTHYROXINE SODIUM 100 MCG TABLET PO SCH (06:23)
[2021-09-12 06:40] LABS: Basophils # (auto) 0.06 K/uL (0-0.2); Basophils % (auto) 1.3 %; Eosinophils # (auto) 0.38 K/uL (0-0.50); Eosinophils % (auto) 8.3 %; Hematocrit (blood only) 23.7 % (34.1-44.9); Immature Granulocytes # (auto) 0.04 K/uL (0.00-0.02); Immature Granulocytes % (auto) 0.9 %; Lymphocytes # (auto) 0.66 K/uL (1.2-3.4); Lymphocytes % (auto) 14.3 %; Mean Corpuscular Hgb Conc 33.8 g/dL (32.0-36.0); Mean Corpuscular Volume 82.9 fL (80.0-100.0); Mean Platelet Volume 8.8 fL (9.4-12.3); Monocytes # (auto) 0.62 K/uL (0.24-0.82); Monocytes % (auto) 13.5 %; Neutrophils # (auto) 2.84 K/uL (1.4-6.5); Neutrophils % (auto) 61.7 %; Platelet Count 227 K/uL (130-400); RDW Coefficient of Variation 17.4 % (11.5-14.5); RDW Standard Deviation 53.3 fL (36.4-46.3); Red Blood Count 2.86 M/uL (3.93-5.22)
[2021-09-12 06:51] LABS: INR 1.3 (0.9-1.1); Prothrombin Time 13.2 Seconds (9.0-12.0)
[2021-09-12 07:04] LABS: BUN Creatinine Ratio 12.5 (10-20); Creatinine Clr Calc Pharmacy 77.5 ml/min; Est GFR (African American) 103.5 ml/min; Est GFR (Non-African American) 89.3 ml/min; Magnesium 1.7 mg/dl (1.7-2.4); Phosphorus 2.8 mg/dl (2.5-4.9)
[2021-09-12] MEDS: INSULIN ASPART PER UNIT SC SCH ×4 (07:52→20:36)
--- NOTE | 2021-09-12 08:52 | Nephrology Progress Note ---
Date of Service September 12, 2021 Assessment & Plan Admission and Anticipated Discharge Date Admission Date: September 10, 2021 Subjective S--unable to obtain history. PHYSICAL EXAMINATION: GENERAL: Elderly white female who is not in any overt respiratory distress. She is awake and alert, but not oriented. HEENT: Mucous membranes are moist. NECK: Supple. No JVD. CHEST: Bilateral decreased breath sound because of lack of inspiratory effort. CARDIOVASCULAR: S1 and S2, irregular. ABDOMEN: Soft, nontender. EXTREMITIES: Show 1+ edema. Compression stockings in place. LABORATORY TEST: Reviewed in detail. Urine osmolality 208. Urine sodium 11. na 128 now. Chest x-ray does show some cardiomegaly with prominence of pulmonary vasculature as well as small left pleural effusion. Serum sodium 119 on admission, now it is 125. ASSESSMENT AND PLAN: A 80-year-old female with acute on chronic hyponatremia. Hyponatremia: This is acute on chronic, as she does have a history of chronic hyponatremia with a sodium ranging in the 125-127 range. On admission was 119, but with some gentle IV fluid, it did get better to 126. Now, she is back to her baseline sodium range. rate of correction is fine. No further workup is needed. I would continue to hold the Lasix at least for today. Depending on her labs tomorrow, we will decide. At this point, we can do labs once daily as she is already back to her baseline range. Also in advanced dementia patient not unusual to see Chronic low na nazia when they have very poor protein intake and relatively high fluid intake. We will have to accept na 125 for her ongoing management balancing the CHF and Low na+. restart lasix 40 bid from tomorrow. Results & Data ([facility]) Vital Signs (Past 12 Hours) Vital Signs Temp Pulse Pulse Resp BP Pulse Ox O2 Del Method 09/12/21 06:59 36.7 C 60 16 129/58 L 94 Room Air 09/12/21 04:00 36.7 C 61 16 118/64 93 Room Air 09/11/21 22:20 71 09/11/21 23:05 36.6 C 63 16 113/58 L 95 Room Air
[2021-09-12] MEDS: ASPIRIN 81 MG ECTAB PO SCH (09:15)
[2021-09-12] MEDS: ESCITALOPRAM OXALATE 10 MG TAB PO SCH (09:15)
[2021-09-12] MEDS: cloNIDine HCL 0.1 MG TAB PO SCH ×2 (09:15→20:31)
[2021-09-12] MEDS: DOCUSATE SODIUM 100 MG CAP PO SCH ×2 (09:15→20:33)
[2021-09-12] MEDS: POTASSIUM CHLORIDE 10 MEQ TABCR PO SCH (09:16)
[2021-09-12] MEDS: PANTOprazole 40 MG TAB PO SCH (09:16)
[2021-09-12] MEDS: METOPROLOL TARTRATE 100 MG TAB PO SCH ×2 (09:16→20:32)
[2021-09-12] MEDS: FENOFIBRATE NANOCRYSTALLIZED 48 MG TABLET PO SCH (09:16)
--- NOTE | 2021-09-12 12:04 | Gastrointestinal Consultation ---
Date of Consultation September 12, 2021 Assessment & Plan (1) Rectal bleeding: In light of multiple comorbidities, specifically the hyponatremia and because there is no current evidence of gross GI bleeding and no severe drop in Hb/Hct, would defer endosocpy. The pt seems to indicate that this is her preference as well. GI will sign off. Please notify us if new/worsening GI issues. Supervising Physician Co-Signing Physician Notes Late entry: Patient was seen and examined on 09/12 with KIP Irwin whose note reflects our findings and plan. History of Present Illness Reason for Consultation: Anemia. GI bleed. Hemorrhoid Requesting Physician: Dr. Pink Attending Physician: Walter Dash MD History of Present Illness Mr. Reba Rinaldi is a 80 yr old female resident of [facility] with a hx of prior CVA, A-fib (not anticoagulated), HTN, DM2, CVA, Alzheimers and other. She was admitted on 09/10 for hyponatremia and GI is consulted for "Anemia, GI bleed, Hemorrhoid." According to progress notes there was one bloody BM yesterday morning. Hb has been stable (8 today, down from 8.9 on arrival). BUN has been normal. I just spoke with the patient's nurse. He reports that she just passed a brown BM and there was no blood on the toilet paper or in the toilet bowl. She is awake, alerted can tell me her name and that she is at "the hospital," she is unable to provide much more hx that that. She denies any abdominal pain. When asked about blood in her BMs, she says, "yes, from my hemorrhoids." We talked about colonoscopies and she says that she doesn't believe that she has ever had one and that, "I don't want one either." Allergies Allergy/AdvReac Type Severity Reaction Status Date / Time Penicillins Allergy Intermediate Rash Verified 09/10/21 16:43 codeine AdvReac Intermediate Headache Verified 09/10/21 16:43 Opioids - Morphine Analogues AdvReac Intermediate Headache Verified 09/10/21 16:43 Influenza Virus Vaccines AdvReac Unknown Unknown Verified 09/10/21 16:43 Home Medications Medication Instructions Recorded Confirmed Type digoxin 125 mcg (0.125 mg) tablet 125 mcg PO DAILY 01/18/20 09/10/21 History (Lanoxin) docusate sodium 100 mg capsule 100 mg PO BID 01/18/20 09/10/21 History escitalopram oxalate 10 mg tablet 10 mg PO DAILY 01/18/20 09/10/21 History (Lexapro) levothyroxine 100 mcg tablet 100 mcg PO DAILY 01/18/20 09/10/21 History (Levoxyl) metoprolol tartrate 100 mg tablet 100 mg BID 01/18/20 09/10/21 History (Lopressor) pantoprazole 40 mg tablet,delayed 40 mg PO DAILY 01/18/20 09/10/21 History release (Protonix) acetaminophen 325 mg tablet 650 mg PO Q4H PRN PAIN/FEVER 09/10/21 09/10/21 History (Tylenol) albuterol sulfate 90 mcg/actuation 2 puff inhalation Q6H PRN 09/10/21 09/10/21 History aerosol inhaler Shortness Of Breath Or Wheezing aspirin 81 mg tablet,delayed 81 mg PO DAILY 09/10/21 09/10/21 History release atorvastatin 80 mg tablet 80 mg PO HS 09/10/21 09/10/21 History clonidine HCl 0.1 mg tablet 0.1 mg PO BID 09/10/21 09/10/21 History diphenhydramine HCl 25 mg capsule 25 mg PO DIRECTED PRN Allergy 09/10/21 09/10/21 History (Benadryl) Symptoms epinephrine 0.3 mg/0.3 mL 0.3 mg IM DIRECTED PRN Allergic 09/10/21 09/10/21 History injection, auto-injector (EpiPen) Reaction fenofibrate nanocrystallized 48 mg 48 mg PO DAILY 09/10/21 09/10/21 History tablet furosemide 40 mg tablet (Lasix) 40 mg PO BID 09/10/21 09/10/21 History hydralazine 50 mg tablet 50 mg PO TID 09/10/21 09/10/21 History magnesium hydroxide 400 mg/5 mL 30 ml PO DAILY PRN Constipation 09/10/21 09/10/21 History oral suspension (Milk of Magnesia) melatonin 5 mg tablet 5 mg PO HS 09/10/21 09/10/21 History metformin 500 mg tablet 500 mg PO DAILY 09/10/21 09/10/21 History phenylephrine-witch satya 0.25 1 applic topical BID PRN 09/10/21 09/10/21 History %-50 % topical gel (Preparation H Hemorrhoids (phenylephrine,witch satya)) potassium chloride 10 mEq 10 meq PO DAILY 09/10/21 09/10/21 History capsule,extended release triamcinolone acetonide 0.1 % 1 applic topical BID PRN DERMATITIS 09/10/21 09/10/21 History topical cream vit C 250 mg-vit E 90 mg-zinc 40 1 tab PO BID 09/10/21 09/10/21 History mg-copper 1 [id number] capsule (PreserVision AREDS-2) Patient History Medical History (Updated 09/13/21 @ 08:25 by Elisha Tadeo MD, PhD) MILA inhibitor intolerance hyperkalemia Atrial fibrillation Cerebral amyloid angiopathy CVA (cerebrovascular accident due to intracerebral hemorrhage) Diabetes mellitus, type 2 Dyslipidemia History of basal cell cancer Hypertension Hypothyroidism Late onset Alzheimer's dementia without behavioral disturbance Lymphedema Tachy-karthik syndrome Surgical History H/O hysterectomy with oophorectomy History of appendectomy History of laparoscopic cholecystectomy Status post placement of cardiac pacemaker Family History Father Diabetes Mother Heart disease Hypertension Social History Smoking Status: Never smoker Second Hand Exposure: Yes; Do You Dip or Chew Tobacco: No; Tobacco Cessation Education Requested by Patient: No Hx Alcohol Use: Yes Alcohol type: hard liquor Hx Substance Use: No Preferred Language: Danish Communication Ability: Effective Certified Substance Abuse Counselor Required: No Beliefs That Will Affect Care: None marital status: / Current Living Situation: [facility] Current Living Situation Comment: [place] Other Information That Helps Us Care for You: No Feels Safe at Home: Yes Safety Concerns: Feels Safe At This Time Assistive Devices: Walker Review of Systems Review of Systems: ROS not obtainable Physical Exam Constitutional: WD/WN, vitals as above Eyes: PERRL, conjunctivae normal, anicteric sclerae ENMT: external ear and nose normal, oropharynx normal Neck: trachea midline, no thyromegaly Respiratory: normal respiratory effort, lungs clear to auscultation Cardiovascular: Rate/Rhythm: + irregularly irregular no murmurs, regular rate Gastrointestinal (Abdomen): normal bowel sounds, soft, nontender, no hepatosplenomegaly Skin: no rashes, warm and dry Neurologic: PERRL, EOMI, accommodation nl, no face palsy, no dysarthria Psychiatric: Affect: euthymic affect Lymphatic: no cervical or axillary lymphadenopathy Results & Data ([facility]) Vital Signs (Past 12 Hours) Vital Signs Temp Pulse Pulse Resp BP Pulse Ox O2 Del Method 09/12/21 08:00 78 09/12/21 06:59 36.7 C 60 16 129/58 L 94 Room Air 09/12/21 04:00 36.7 C 61 16 118/64 93 Room Air Laboratory Results WBC 4, Hb 8, HCT 23.7, PLT S227, INR 1.3, NA 128, K4.0, CL 96, CO2 30, BUN 7, CR 0.56, glucose 86 Diagnostic Findings CXR 1. Cardiomegaly and cardiac pacemaker with prominence of the pulmonary vasculature. Correlate clinically for mild fluid overload/congestive change. 2. Small left pleural effusion.
[2021-09-12] MEDS: cefTRIAXone SODIUM 1,000 MG in DEXTROSE 5% 50 ML IV SCH (12:55)
--- NOTE | 2021-09-12 16:26 | Hospitalist Progress Note ---
Date of Service September 12, 2021 Assessment & Plan (1) Acute hyponatremia: Plan: Was sent from [facility] for abnormal lab with Na 119 Ongoing issue for past few months but acutely worsened over past week Na 119 on admission Possible due to poor oral intake in the setting of diuretic Serum osm 256, Uosm 208, Jessica 11 Received gentle hydration Na today 128 Nephrology on board case discussed with nephrology that recommended to hold lasix today, plan to resume lasix tomorrow Continue monitor BMP (2) UTI Urine cx grew Klebsiella Pneumonia staring on IV rocephin Will transition to keflex (3) Hypomagnesemia: Mag was 1.4 on admission Mg 1.7 today Continue monitor electrolytes (4) Anemia: Last Hb from 08/2018 was 16.3 from EPIC Hb was 8.9 on admission Hgb today 8 RN reported bloody bowel movement this AM (blood mixed in stool). Patient has hemorrhoid on exam Gastro on board - No evidence of gross GI bleeding and no severe drop in Hb/Hct, would defer endosocpy Continue monitor Hgb Per admitting provider, POLST form does not specify pt's wishes on transfusion so if H&H drop further and transfusion indicated, will need to discuss with daughter/POA (5) Late onset Alzheimer's dementia without behavioral disturbance: Stable (5) Atrial fibrillation: Rate controlled Continue digoxin and metoprolol On Aspirin, will monitor H/H (6) History of hemorrhagic cerebrovascular accident (CVA) with residual deficit: Continue aspirin and statin (7) Diabetes mellitus, type 2: A1c 5.3 (09/11/21) Continue insulin sliding scale Continue monitor BS (8) Hypertension: BP stable Home hydralazine on hold. Continue other meds for now and monitor (9) Hypothyroidism: Continue levothyroxine (10) Dyslipidemia: Plan: DVT Prophylaxis: SCDs for now in view of prior hemorrhagic CVA and possible GI bleed Code Status: DNR/DNI. Pt's daughter, Awilda Jordan (POA - [phone]) Admission and Anticipated Discharge Date Admission Date: September 10, 2021 Subjective Pt was seen and examined for follow up of Hyponatremia Sitting in chair with no acute distress Pt said that she feels ok She is asking to be discharged today Denied any chest pain, palpitation, dizziness and SOB Review of Systems Review of Systems: All systems reviewed & are unremarkable except as noted in Subjective Physical Exam Physical Exam: General- No acute distress Head- atraumatic Eyes- PERRL, EOMI, ENT- oropharynx clear Neck- supple, no JVD Lungs- clear to auscultation Heart- Irregular rhythm; no murmur Abdomen- normal bowel sounds, soft, nontender Extremities- no calf tenderness, +edema Neuro- alert, oriented, PERRL, EOMI; no facial palsy; no dysarthria Skin- warm & dry Results & Data Results & Data ([facility]) Vital Signs (Past 12 Hours) Vital Signs Temp Pulse Pulse Resp BP Pulse Ox O2 Del Method 09/12/21 15:35 37 C 68 16 127/72 97 Room Air 09/12/21 11:51 36.8 C 68 14 135/54 L 95 Room Air 09/12/21 08:00 78 09/12/21 06:59 36.7 C 60 16 129/58 L 94 Room Air
[2021-09-12] MEDS: DIGOXIN 0.125 MG TAB PO SCH (17:07)
[2021-09-12] MEDS: ATORVASTATIN 40 MG TAB PO SCH (20:31)
[2021-09-12] MEDS: MELATONIN 3 MG TAB PO SCH (20:32)
[2021-09-13] MEDS: LEVOTHYROXINE SODIUM 100 MCG TABLET PO SCH (06:37)
[2021-09-13 07:01] LABS: Hematocrit (blood only) 23.1 % (34.1-44.9); Hemoglobin 7.8 g/dl (12.0-16.0); Mean Corpuscular Hemoglobin 28.4 pg (25.0-34.0); Mean Corpuscular Hgb Conc 33.8 g/dL (32.0-36.0); Mean Platelet Volume 8.7 fL (9.4-12.3); Platelet Count 235 K/uL (130-400); RDW Coefficient of Variation 18.3 % (11.5-14.5); RDW Standard Deviation 55.8 fL (36.4-46.3); Red Blood Count 2.75 M/uL (3.93-5.22); White Blood Count 5.72 K/ul (4.8-10.8)
[2021-09-13 07:47] LABS: BUN Creatinine Ratio 11.3 (10-20); Creatinine Clr Calc Pharmacy 81.9 ml/min; Est GFR (African American) 105.4 ml/min; Est GFR (Non-African American) 90.9 ml/min; Potassium 3.9 mmol/L (3.5-5.1)
--- NOTE | 2021-09-13 08:06 | Nephrology Progress Note ---
Date of Service September 13, 2021 Assessment & Plan (1) Hyponatremia: Plan: hypovolemic hypotonic acute on chronic hyponatremia improving to better than OP baseline of 125-127 at 130 today. chronic hyponatremia multifactorial including low solute diet, HF, medications. Seen in OP HF clinic 09/06 w/ wt 145, down 30 lb since July 2021 but longer retrospective of wts shows "baseline" 145-155 lb in [facility] clinics and frequent spikes up to mid 170s, c/w HF exacerbations -daily bmp -encourage protein and po intake -cont 2L FR for now; protein shakes do not count toward limit -currently no diuretics or IVF or other hyponatremia interventions indicated - takes 40 mg bid lasix as OP, which I would cont to hold unless SOB or emerging overload for now>>recommend resume lasix at lower dose like 20 mg bid po lasix -CXR ordered to update volume/HF status >> looks a bit better (2) Lymphedema: Plan: hypoalbuminemia, w/ BMI > 20 in setting of significant/chronic lymphedema (so actual BMI possibly < 20). no dipstick proteinuria though has had nephrotic range proteinuria remotely /improved and non nephrotic as of 2020, recent TTE 07/2021 w/ preserved syst/diast fnxn. hydralazine and insulin can contribute to edema; not currently on diuretics -monitor -recheck prot/creat ordered -defer to primary service to evaluate for malnutrition Admission and Anticipated Discharge Date Admission Date: September 10, 2021 Subjective seen on rounds this am; sitting up in chair; she can't tellme if legs swollen or not. no sob. no uncontrolled pain Review of Systems Review of Systems: All systems reviewed & are unremarkable except as noted in Subjective Physical Exam Constitutional: well developed, well nourished, + physical limitations, + frail appearing and cooperative; no acute distress Eyes: EOM intact bilaterally ENMT: Ears: no external ear abnormality Nose: no external nose abnormality Mouth: + dry oral mucous membranes Neck: no nuchal rigidity Respiratory: normal respiratory effort Auscultation: + diminished lung sounds and + crackles (bibasilar) Cardiovascular: Rate/Rhythm: regular rhythm and + tachycardic Extremities: + edema (2+ BL below knee) Gastrointestinal (Abdomen): Inspection/Auscultation: normal bowel sounds Percussion/Palpation: abdomen soft; abdomen nontender Musculoskeletal: Extremities: strength 5/5 throughout Skin: no rashes, warm and dry Neurologic: fenton, fluent speech, no tremor Psychiatric: Orientation: oriented to person and oriented to place Speech: normal rate/rhythm/volume of speech Results & Data ([facility]) Vital Signs (Past 12 Hours) Vital Signs Temp Pulse Pulse Resp BP Pulse Ox O2 Del Method 09/13/21 07:11 36.6 C 59 L 18 128/60 93 Room Air 09/13/21 03:19 36.6 C 69 18 135/58 L 91 Room Air 09/12/21 23:27 36.5 C 61 16 131/61 92 Room Air 09/12/21 22:15 63 Laboratory Results 09/13/21 06:39 09/13/21 06:39
[2021-09-13] MEDS: PANTOprazole 40 MG TAB PO SCH (08:12)
[2021-09-13] MEDS: DOCUSATE SODIUM 100 MG CAP PO SCH (08:12)
[2021-09-13] MEDS: ESCITALOPRAM OXALATE 10 MG TAB PO SCH (08:12)
[2021-09-13] MEDS: FENOFIBRATE NANOCRYSTALLIZED 48 MG TABLET PO SCH (08:13)
[2021-09-13] MEDS: METOPROLOL TARTRATE 100 MG TAB PO SCH (08:13)
[2021-09-13] MEDS: cloNIDine HCL 0.1 MG TAB PO SCH (08:13)
[2021-09-13] MEDS: POTASSIUM CHLORIDE 10 MEQ TABCR PO SCH (08:13)
[2021-09-13] MEDS: ASPIRIN 81 MG ECTAB PO SCH (08:13)
[2021-09-13] MEDS: INSULIN ASPART PER UNIT SC SCH ×2 (08:15→11:56)
--- NOTE | 2021-09-13 10:12 | XRay Report ---
XR chest 1V portable HISTORY: hx recurrent congestive heart failure off diuretics - check volume status COMPARISON: Chest 09/10/2021. FINDINGS: No pneumothorax. There are small bilateral pleural effusions. The cardiac silhouette remain s enlarged. There is mild central pulmonary vascular congestion without overt edema. This has slightl y improved. Calcifications within the aortic knob. There is a left-sided dual-chamber pacemaker. Biba silar linear densities favor subsegmental atelectasis. IMPRESSION: 1. Slight improvement in the mild pulmonary vascular congestion without overt edema. 2. Cardiomegaly and small bilateral pleural effusions are again noted. ACT 112: Negative or not required by law. Electronically signed by: Evgeny Frank M.D. 09/13/2021 10:11 AM
[2021-09-13] MEDS: cefTRIAXone SODIUM 1,000 MG in DEXTROSE 5% 50 ML IV SCH (10:32)
--- NOTE | 2021-09-13 15:14 | Discharge Summary ---
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 History from the patient is limited due to the dementia so additional history was obtained from the chart and from the daughter, Awilda, by phone. Per pt's daughter, pt had worsening issues with fluid retention in spring. She has been following closely with cardiology and had her diuretics adjusted. Outpatient chart shows a weight of 178 lbs on 07/12/21 and 145 lbs on 09/06/21. However, there have been some ongoing issues with sodium being low during this process. Spironolactone was apparently discontinued with some transient improvement in sodium but now worsening again. Outpatient labs today to follow-up on low sodium last week showed worsening with today's value being 120. Sodium had been in the 125-127 range previously. Per daughter, edema is improved from two months ago although still present. Since her hemorrhagic stroke in 2019, pt has had issues with confusion and memory loss. She may talk about her mother who is like she is still living or confuse the radio DJ in the car with someone being in the backseat. However, her daughter feels like confusion has been worse over the last several days. Her appetite has also been poor - she apparently mainly eats soup and drinks juice. Pt reports that she doesn't drink much water. Records from [facility] showed that pt is on a 4500 ml/day fluid restriction. Pt denies any rectal bleeding other than from hemorrhoids. It is unclear if anemia noted on labs today is acute or chronic issue. No other recent blood loss that family is aware of. Admission Exam Per Admitting Provider Constitutional:L well developed and well nourished; no acute distress Eyes: + anicteric sclerae ENMT: external ear and nose normal, oropharynx normal Neck: trachea midline Respiratory: no respiratory distress and no labored breathing Auscultation: + diminished lung sounds; no rales, no rhonchi and no wheezes Cardiovascular: Rate/Rhythm: + irregularly irregular Vessels: radial pulses present Extremities: + edema (bilateral, 2+) compression stockings in place Gastrointestinal (Abdomen): Inspection/Auscultation: normal bowel sounds; abdomen not distended Percussion/Palpation: abdomen soft; abdomen nontender Musculoskeletal: Head/Neck/Chest: normocephalic, head atraumatic and neck supple Skin: no jaundice Neurologic:L moves all extremities and + confused Principal Diagnosis Acute hyponatremia Urinary tract infection Hypomagnesemia: Anemia Late onset Alzheimer's dementia without behavioral disturbance: Atrial fibrillation: History of hemorrhagic cerebrovascular accident (CVA) with residual deficit: Diabetes mellitus, type 2: Hypertension: Hypothyroidism: Dyslipidemia: Discharge Exam General- No acute distress Head- atraumatic Eyes- PERRL, EOMI, ENT- oropharynx clear Neck- supple, no JVD Lungs- clear to auscultation Heart- Irregular rhythm; no murmur Abdomen- normal bowel sounds, soft, nontender Extremities- no calf tenderness, +edema Neuro- alert, oriented, PERRL, EOMI; no facial palsy; no dysarthria Skin- warm & dry Discharge Data Allergies Allergy/AdvReac Type Severity Reaction Status Date / Time Penicillins Allergy Intermediate Rash Verified 09/10/21 16:43 codeine AdvReac Intermediate Headache Verified 09/10/21 16:43 Opioids - Morphine Analogues AdvReac Intermediate Headache Verified 09/10/21 16:43 Influenza Virus Vaccines AdvReac Unknown Unknown Verified 09/10/21 16:43 Consultations 09/10/21 15:57 ED Decision to Admit Stat 09/10/21 18:08 Consult Nephrology Routine 09/11/21 11:24 Consult Gastroenterology Routine Ordered Studies XR chest 1V portable HISTORY: hx recurrent congestive heart failure off diuretics - check volume status COMPARISON: Chest 09/10/2021. FINDINGS: No pneumothorax. There are small bilateral pleural effusions. The cardiac silhouette remains enlarged. There is mild central pulmonary vascular congestion without overt edema. This has slightly improved. Calcifications within the aortic knob. There is a left-sided dual-chamber pacemaker. Bibasilar linear densities favor subsegmental atelectasis. IMPRESSION: 1. Slight improvement in the mild pulmonary vascular congestion without overt edema. 2. Cardiomegaly and small bilateral pleural effusions are again noted. ACT 112: Negative or not required by law. Electronically signed by: Evgeny Frank M.D. 09/13/2021 10:11 AM Dictated:09/13/21 1009 Transcribed: 09/13/21 1009 SINGLE VIEW CHEST CLINICAL HISTORY: Generalized weakness. FINDINGS: An AP, portable, upright chest radiograph is compared to study dated 01/18/2020. A 2-lead cardiac pacemaker is unchanged in position. The heart is enlarged noting atherosclerotic calcification of the thoracic aorta. There is prominence of the pulmonary vasculature. There is bibasilar scarring/atelectasis. A small pleural effusion is noted on the left. No pneumothorax is seen. The skeletal structures are osteopenic. The bony thorax is grossly intact. IMPRESSION: 1. Cardiomegaly and cardiac pacemaker with prominence of the pulmonary vasculature. Correlate clinically for mild fluid overload/congestive change. 2. Small left pleural effusion. ACT 112: Negative or not required by law. Electronically signed by: Joe Metzger M.D. 09/10/2021 1:51 PM Dictated:09/10/21 1350 Transcribed: 09/10/21 1350 Hospital Course (1) Acute hyponatremia: Was sent from [facility] for abnormal lab with Na 119 Ongoing issue for past few months but acutely worsened over past week Na 119 on admission Possible due to poor oral intake in the setting of diuretic Serum osm 256, Uosm 208, Jessica 11 Received gentle hydration Na today 130 Nephrology on board case discussed with nephrology that recommended to hold lasix today, plan to resume lasix tomorrow Continue monitor BMP (2) UTI Urine cx grew Klebsiella Pneumonia staring on IV rocephin Will transition to keflex (3) Hypomagnesemia: Mag was 1.4 on admission Mg 1.7 today Continue monitor electrolytes (4) Anemia: Last Hb from 08/2018 was 16.3 from [facility] Hb was 8.9 on admission Hgb today 8 RN reported bloody bowel movement this AM (blood mixed in stool). Patient has hemorrhoid on exam Gastro on board - No evidence of gross GI bleeding and no severe drop in Hb/Hct, would defer endosocpy Continue monitor Hgb Per admitting provider, POLST form does not specify pt's wishes on transfusion so if H&H drop further and transfusion indicated, will need to discuss with daughter/POA (5) Late onset Alzheimer's dementia without behavioral disturbance: Stable (5) Atrial fibrillation: Rate controlled Continue digoxin and metoprolol On Aspirin, will monitor H/H (6) History of hemorrhagic cerebrovascular accident (CVA) with residual deficit: Continue aspirin and statin (7) Diabetes mellitus, type 2: A1c 5.3 (09/11/21) Continue insulin sliding scale Continue monitor BS (8) Hypertension: BP stable Home hydralazine on hold. Continue other meds for now and monitor (9) Hypothyroidism: Continue levothyroxine (10) Dyslipidemia: Plan: DVT Prophylaxis: SCDs for now in view of prior hemorrhagic CVA and possible GI bleed Code Status: DNR/DNI. Pt's daughter, Awilda Jordan (POA - [phone]) Total Time Total Time Spent Total Time Spent (In Minutes): 35 minutes Discharge Plan Discharge Items Patient Disposition: Personal Intermediate Reason For Visit: HYPONATREMIA Discharge Diagnosis: Acute hyponatremia Urinary tract infection Hypomagnesemia: Anemia Late onset Alzheimer's dementia without behavioral disturbance: Atrial fibrillation: History of hemorrhagic cerebrovascular accident (CVA) with residual deficit: Diabetes mellitus, type 2: Hypertension: Hypothyroidism: Dyslipidemia: Condition on Discharge: Fair Activity: Resume your previous activity Non-emergency contact: Primary Care Provider, Mysql Database Developer and Nep hrologist Call non-emergency contact if: you have any medication questions and your symptoms worsen Follow-up/Referrals: Checo Cuellar DO [Physician] - (Date & Time 09/21/2021 9:20 AM Provider Checo Cuellar DO [address] ) Diet: Carb Consistent or DM2 Addtl Attending Provider Instructions: Follow up with your primary care provider 09/21/2021 @9:20 AM Checo Cuellar DO [address] Follow up with nephrology for the hyponatremia Follow up with gastroenterology for the anemia work up and if agrees to proceed with scope Check BMP and magnesium 3-5 days to monitor your electrolytes Check CBC in 3-5 days to monitor your hemoglobin Continue monitor your blood pressure and bring your blood pressure at your next appointment with your provider. Please hold Hydralazine for now and your provider will advise you when to resume it. Complete the course of the antibiotic with Keflex Fall precaution Lasix decreased to 20mg twice a day. Monitor closely for sign of fluid overload Pending Studies at Discharge: No Stand-Alone Forms: My [employer], Smoking Cessation Skilled Items Patient informed of condition?: Yes DNR: Yes Discharge Level of Care: Other Communicable Disease: No Discharge Prognosis: Stable Lines: None Urinary Catheter: Yes Medications and DC Order Prescriptions: New ferrous sulfate [FeroSul] 325 mg (65 mg iron) tablet 325 mg PO DAILY Qty: 30 0RF Continued metoprolol tartrate [Lopressor] 100 mg Tablet 100 mg BID levothyroxine [Levoxyl] 100 mcg Tablet 100 mcg PO DAILY pantoprazole [Protonix] 40 mg Tablet,Delayed Release (Dr/Ec) 40 mg PO DAILY docusate sodium 100 mg Capsule 100 mg PO BID digoxin [Lanoxin] 125 mcg (0.125 mg) Tablet 125 mcg PO DAILY escitalopram oxalate [Lexapro] 10 mg Tablet 10 mg PO DAILY metformin 500 mg Tablet 500 mg PO DAILY atorvastatin 80 mg Tablet 80 mg PO HS potassium chloride 10 mEq Capsule, Extended Release 10 meq PO DAILY clonidine HCl 0.1 mg Tablet 0.1 mg PO BID acetaminophen [Tylenol] 325 mg Tablet 650 mg PO Q4H PRN (Reason: PAIN/FEVER) aspirin 81 mg Tablet,Delayed Release (Dr/Ec) 81 mg PO DAILY triamcinolone acetonide 0.1 % Cream 1 applic TOPICAL BID PRN (Reason: DERMATITIS) magnesium hydroxide [Milk of Magnesia] 400 mg/5 mL Suspension 30 ml PO DAILY PRN (Reason: Constipation) diphenhydramine HCl [Benadryl] 25 mg Capsule 25 mg PO DIRECTED MDD 2 DOSES/24 HOURS PRN (Reason: Allergy Symptoms) epinephrine [EpiPen] 0.3 mg/0.3 mL Auto-Injector 0.3 mg IM DIRECTED PRN (Reason: Allergic Reaction) albuterol sulfate 90 mcg/actuation Hfa Aerosol Inhaler 2 puff INHALATION Q6H PRN (Reason: Shortness Of Breath Or Wheezing) fenofibrate nanocrystallized 48 mg Tablet 48 mg PO DAILY melatonin 5 mg Tablet 5 mg PO HS PreserVision AREDS-2 250-90-40-1 mg Capsule 1 tab PO BID Preparation H(pe, witch satya) 0.25-50 % Gel 1 applic TOPICAL BID PRN (Reason: Hemorrhoids) Changed furosemide [Lasix] 40 mg Tablet 20 mg PO BID 30 Days Qty: 30 0RF Rx Instructions: TAKE 6 HOURS APART Discontinued hydralazine 50 mg Tablet 50 mg PO TID Discharge Orders: Discharge Order (Routine); Ordered 09/13/21 Ordered By: Walter Dash Admission Data Admit Date/Time: 09/10/21 16:43 Attending Provider: Walter Dash Admit Provider: Walter Dash Primary Care Provider: Delmis Galan [facility] Other Providers: Walter Dash ; Lynsey Griffiths ; Mil Wolf ; Ana Pink I. ; Delmis Galan [facility] Other Interventions: Discharge Summary Assessment (RN) Last Done: 09/13/21 15:17
--- NOTE | 2021-09-15 06:43 | Coding Query ---
CONGESTIVE HEART FAILURE To Promote full compliance with coding requirements relating to patient care, physician participation is requested in all cases of director of philanthropy uncertainty. Please assist us with the following questions. A diagnosis of Congestive Heart Failure is documented in the patient's medical record. To accurately code this diagnosis and to compare patient severity, we ask that you specify the type of heart failure by placing an X within the parenthesis (x). SYSTOLIC HEART FAILURE ( ) Acute ( ) Chronic ( ) Acute on Chronic ( ) Rheumatic ( ) Unknown DIASTOLIC HEART FAILURE ( ) Acute ( x) Chronic ( ) Acute on Chronic ( ) Rheumatic ( ) Unknown COMBINED SYSTOLIC AND DIASTOLIC HEART FAILURE ( ) Acute ( ) Chronic ( ) Acute on Chronic ( ) Rheumatic ( ) Unknown Was the CHF Present On Admission? Please check the appropriate box: ( ) Present on Admission ( ) Not Present On Admission ( ) Clinically undetermined Thank you Clifford BARRON
== END 2021-09-13 15:40 | disposition home or self-care (01) | DRG 641 ==
LOC: ED 13:06 → SUATTDRO 16:43 → 2E 16:43

== ENCOUNTER 2022-01-18 11:48 | Inpatient (IN) ==
--- NOTE | 2022-01-18 11:56 | Emergency Department Note ---
Impression & Plan Hemorrhagic cerebrovascular accident (CVA), Hypoxia ED Provider Note NAME: LINDEN BARNES AGE: 81 SEX: F : 1940 ARRIVES VIA: Ambulance INFORMANT: Patient, EMS ED PROVIDER(S): Giuseppe Stubbs DO CHIEF COMPLAINT: Left upper extremity weakness and slurred speech HPI: Patient is a 81-year-old female with a history of A. fib, tachybradycardia syndrome, diabetes, hypothyroidism, hyperlipidemia, intracranial hemorrhage due to amyloid angiopathy, CHF who was brought in by EMS for left-sided upper extremity weakness and slurred speech which occurred around 1030. Patient notes that she is a DNR/DNI. She does admit to a mild headache. No other complaints. ROS: See above HPI for pertinent positives & negatives. A total of 10 systems reviewed and were otherwise negative. PAST MEDICAL HISTORY:See Below PAST SURGICAL HISTORY:See Below FAMILY HISTORY:See Below SOCIAL HISTORY:See Below HOME MEDICATIONS:See Below ALLERGIES:See Below VITALS:See Below PHYSICAL EXAMINATION: GENERAL: Sitting up in bed, alert, slightly ill-appearing, disheveled EYE EXAM: normal conjunctiva. PERRL and EOM's grossly intact. OROPHARYNX: no exudate, no erythema, lips, buccal mucosa, and tongue normal and mucous membranes are moist NECK: supple, no nuchal rigidity, no adenopathy, non-tender LUNGS: Clear to auscultation. Normal chest wall mechanics HEART: no murmurs, S1 normal and S2 normal ABDOMEN: abdomen soft, non-tender, normo-active bowel sounds, no masses, no rebound or guarding. UPPER EXTREMITIES: upper extremities are grossly normal. LOWER EXTREMITIES: No pitting edema. NEURO EXAM: Awake alert oriented to person, place and year answering all questions appropriately. Unable to move left upper extremity. Moving bilateral lower extremities and right upper extremities. MEDICAL DECISION MAKING: Patient is a 81-year-old female who presents ER for above-stated complaint. Clinical exam is consistent with a CVA. I received medical command call the patient and call stroke alert. She was taken emergently to CT. Upon review CT show large intracranial hemorrhage. Discussed with her son after discussion with her at bedside. She notes that she does not want anything done. She declines any intervention. She notes that she is a DNR/DNI. Again at this time she is oriented to person place or time. I discussed with her son Sean in regards to her wishes and he was well aware of what she wants. She notes this has been this way for the past 3 years. He agrees with the current management of keeping her comfortable. She was placed on Cardene drip and fentanyl drip. Discussed with the hospitalist. Daughter eventually presented at bedside after I tried to contact her multiple times. She was updated and in agreement with treatment as well. Discussed with Dr. Joyner and Ave puckett from the [facility] service. Patient did gradually deteriorate while in the ER. She became nonverbal. She was hypoxic initially but requiring additional oxygen. Triage Nursing notes reviewed. Limited review of prior medical records performed Vital Signs: reviewed and remarkable for HTN Differential diagnosis: Differential Diagnosis includes but is not limited to ischemic Stroke, hemorrhagic stroke, bells palsy, mass, neoplasm, migraine headache, seizure, subarachnoid hemorrhage, TIA, and transient global amnesia. ER treatment provided: See below Diagnostics interpreted by me: ECG: Ventricular paced rate of 65 currently no PVCs QTC 482 Cardiac Monitoring: An order was placed for continuous cardiac monitoring. The monitor shows a rate of 70 with sinus rhythm. Laboratory studies: As stated above and show below. Imaging studies: Acute right thalamic hematoma, measuring 2.4 x 2 cm. Mild associated vasogenic edema. Intraventricular extension of hemorrhage, as above. No evidence for hydro cephalus. Findings discussed with Dr. Stubbs at time of dictation. Consultation(s): As described above Procedures: none Critical Care: I have personally spent 50 minutes of critical care time in the direct abhilash gement of this patient. This includes bedside care, interpretation of diagnostic studies, and testing, discussion with consultants, patient, and family members, and other required patient management activities. This 50 minutes is in excess of all separately billable procedures. Past Med/Surg History Medical History (Updated 01/18/22 @ 17:32 by Giuseppe Stubbs DO) MILA inhibitor intolerance hyperkalemia Anemia Atrial fibrillation Cerebral amyloid angiopathy CVA (cerebrovascular accident due to intracerebral hemorrhage) Diabetes mellitus, type 2 Dyslipidemia History of basal cell cancer History of hemorrhagic cerebrovascular accident (CVA) with residual deficit Hypertension Hypothyroidism Late onset Alzheimer's dementia without behavioral disturbance Lymphedema Rectal bleeding Tachy-karthik syndrome Surgical History (Updated 01/18/22 @ 17:23 by KIP Kidd) H/O hysterectomy with oophorectomy History of appendectomy History of laparoscopic cholecystectomy Status post placement of cardiac pacemaker Family History Father Diabetes Mother Heart disease Hypertension Social History Smoking Status: Never smoker Second Hand Exposure: Yes; Hx Alcohol Use: Yes Alcohol type: hard liquor Hx Substance Use: No Preferred Language: Croatian Communication Ability: Effective Industrial Hygenist Required: No Beliefs That Will Affect Care: None marital status: / Current Living Situation: Long-Term Current Living Situation Comment: [facility] Feels Safe at Home: Yes Safety Concerns: Feels Safe At This Time Assistive Devices: Oxygen - Continuous Allergies Allergies Allergy/AdvReac Type Severity Reaction Status Date / Time Penicillins Allergy Intermediate Rash Verified 01/18/22 12:55 codeine AdvReac Intermediate Headache Verified 01/18/22 12:55 Opioids - Morphine Analogues AdvReac Intermediate Headache Verified 01/18/22 12:55 Influenza Virus Vaccines AdvReac Unknown Unknown Verified 01/18/22 12:55 Home Meds Home Medications Medication Instructions Recorded Confirmed Preparation H Gel 1 applic topical Q4 PRN Hemorrhoids 01/18/22 01/18/22 acetaminophen 325 mg tablet 650 mg PO Q4 PRN Pain 01/18/22 01/18/22 (Tylenol) amino ac-protein hydro-whey 1 ea PO AMPM 01/18/22 01/18/22 protein 15 gram-100 kcal/30 mL oral liquid (ProSource Plus) aspirin 81 mg tablet,delayed 81 mg PO DAILY 01/18/22 01/18/22 release atorvastatin 80 mg tablet 80 mg PO HS 01/18/22 01/18/22 cholestyramine (with sugar) 4 gram 1 ea PO AMHS 01/18/22 01/18/22 powder for susp in a packet clonidine HCl 0.1 mg tablet 0.1 mg PO BID 01/18/22 01/18/22 digoxin 125 mcg (0.125 mg) tablet 125 mcg PO DAILY 01/18/22 01/18/22 escitalopram oxalate 10 mg tablet 10 mg PO DAILY 01/18/22 01/18/22 ferrous sulfate 325 mg (65 mg 325 mg PO DAILY 01/18/22 01/18/22 iron) tablet,delayed release furosemide 40 mg tablet 60 mg PO BID 01/18/22 01/18/22 levothyroxine 100 mcg tablet 100 mcg PO DAILY 01/18/22 01/18/22 loperamide 2 mg capsule 2 mg PO Q4 PRN .LOOSE STOOLS 01/18/22 01/18/22 loperamide 2 mg capsule 2 mg PO QAM 01/18/22 01/18/22 melatonin 5 mg tablet 5 mg PO HS 01/18/22 01/18/22 metoprolol tartrate 100 mg tablet 100 mg PO BID 01/18/22 01/18/22 pantoprazole 40 mg tablet,delayed 40 mg PO DAILY 01/18/22 01/18/22 release potassium chloride 10 mEq 20 meq PO BID 01/18/22 01/18/22 capsule,extended release triamcinolone acetonide 0.1 % 1 applic topical BID 01/18/22 01/18/22 topical cream vit C 250 mg-vit E 90 mg-zinc 40 1 tab PO AMHS 01/18/22 01/18/22 mg-copper 1 [id number] capsule (PreserVision AREDS-2) Results & Data (ED) Vital Signs Vital Signs - 24 hr 01/18/22 12:02 01/18/22 11:40 01/18/22 12:20 Temperature 36.8 C Temperature Source Oral Pulse Rate 81 Pulse Rate [Apical] 71 Pulse Rate from SpO2 Sensor Respiratory Rate 20 22 Blood Pressure 148/111 H Blood Pressure [Left Arm] 203/94 H Blood Pressure Mean 123 Blood Pressure Mean [Left Arm] 130 Pulse Oximetry 82 L 99 Oxygen Delivery Method Room Air Nasal Cannula Nasal Cannula Oxygen Flow Rate 5 Sepsis Recent Fever Within 48 Hours No Sepsis New/Unexplained Change in Mental Status No Sepsis Action Taken by Nursing No Action Required 01/18/22 12:01 01/18/22 12:10 01/18/22 12:17 Temperature Temperature Source Pulse Rate 81 67 Pulse Rate [Apical] Pulse Rate from SpO2 Sensor 80 63 Respiratory Rate 25 H 26 H Blood Pressure 203/94 H Blood Pressure [Left Arm] Blood Pressure Mean 130 Blood Pressure Mean [Left Arm] Pulse Oximetry 82 L 100 Oxygen Delivery Method Room Air Nasal Cannula Nasal Cannula Oxygen Flow Rate 2 2 Sepsis Recent Fever Within 48 Hours Sepsis New/Unexplained Change in Mental Status Sepsis Action Taken by Nursing 01/18/22 12:31 01/18/22 12:40 01/18/22 12:46 Temperature Temperature Source Pulse Rate 66 Pulse Rate [Apical] Pulse Rate from SpO2 Sensor 60 Respiratory Rate 21 Blood Pressure 191/76 H 161/71 H Blood Pressure [Left Arm] Blood Pressure Mean 114 101 Blood Pressure Mean [Left Arm] Pulse Oximetry 100 Oxygen Delivery Method Nasal Cannula Nasal Cannula Nasal Cannula Oxygen Flow Rate 5 5 5 Sepsis Recent Fever Within 48 Hours Sepsis New/Unexplained Change in Mental Status Sepsis Action Taken by Nursing 01/18/22 12:46 01/18/22 12:50 01/18/22 13:00 Temperature Temperature Source Pulse Rate 66 63 Pulse Rate [Apical] Pulse Rate from SpO2 Sensor 64 65 Respiratory Rate 21 21 Blood Pressure 157/75 H Blood Pressure [Left Arm] Blood Pressure Mean 102 Blood Pressure Mean [Left Arm] Pulse Oximetry 100 100 Oxygen Delivery Method Nasal Cannula Nasal Cannula Nasal Cannula Oxygen Flow Rate 5 5 5 Sepsis Recent Fever Within 48 Hours Sepsis New/Unexplained Change in Mental Status Sepsis Action Taken by Nursing 01/18/22 13:00 01/18/22 13:10 01/18/22 13:15 Temperature Temperature Source Pulse Rate 61 60 64 Pulse Rate [Apical] Pulse Rate from SpO2 Sensor 61 61 67 Respiratory Rate 21 19 20 Blood Pressure Blood Pressure [Left Arm] Blood Pressure Mean Blood Pressure Mean [Left Arm] Pulse Oximetry 100 100 100 Oxygen Delivery Method Nasal Cannula Nasal Cannula Nasal Cannula Oxygen Flow Rate 5 5 5 Sepsis Recent Fever Within 48 Hours Sepsis New/Unexplained Change in Mental Status Sepsis Action Taken by Nursing 01/18/22 13:15 01/18/22 13:20 01/18/22 13:30 Temperature Temperature Source Pulse Rate 61 Pulse Rate [Apical] Pulse Rate from SpO2 Sensor 62 Respiratory Rate 19 Blood Pressure 147/62 H 136/71 Blood Pressure [Left Arm] Blood Pressure Mean 90 92 Blood Pressure Mean [Left Arm] Pulse Oximetry 95 Oxygen Delivery Method Nasal Cannula Nasal Cannula Nasal Cannula Oxygen Flow Rate 5 5 5 Sepsis Recent Fever Within 48 Hours Sepsis New/Unexplained Change in Mental Status Sepsis Action Taken by Nursing Laboratory Data Result diagrams: 01/18/22 12:13 01/18/22 12:13 Lab Results 01/18/22 01/18/22 01/18/22 Range/Units 12:13 12:13 12:13 WBC 7.75 (4.8-10.8) K/ul RBC 4.15 (3.93-5.22) M/uL Hgb 11.9 L (12.0-16.0) g/dl Hct 36.8 (34.1-44.9) % MCV 88.7 (80.0-100.0) fL MCH 28.7 (25.0-34.0) pg MCHC 32.3 (32.0-36.0) g/dL RDW Std Deviation 46.8 H (36.4-46.3) fL RDW Coeff of Sb 14.6 H (11.5-14.5) % Plt Count 257 (130-400) K/uL MPV 9.6 (9.4-12.3) fL Immature Gran % (Auto) 0.4 % Neut % (Auto) 74.3 % Lymph % (Auto) 8.8 % Grand % (Auto) 9.0 % Eos % (Auto) 6.6 % Baso % (Auto) 0.9 % Neut # (Auto) 5.76 (1.4-6.5) K/uL Lymph # (Auto) 0.68 L (1.2-3.4) K/uL Grand # (Auto) 0.70 (0.24-0.82) K/uL Eos # (Auto) 0.51 H (0-0.50) K/uL Baso # (Auto) 0.07 (0-0.2) K/uL Immature Gran # (Auto) 0.03 H (0.00-0.02) K/uL PT 13.1 H (9.0-12.0) Seconds INR 1.2 H (0.9-1.1) APTT 32.2 H (21.0-31.0) Seconds PTT Ratio 1.2 Sodium 137 (136-145) mmol/L Potassium 3.3 L (3.5-5.1) mmol/L Chloride 102 (98-107) mmol/L Carbon Dioxide 30 (21-32) mmol/L Anion Gap 5 (3-11) BUN 13 (6-23) mg/dl Creatinine 0.58 L (0.6-1.2) mg/dl Est Cr Clr Drug Dosing 81.7 ml/min Est GFR ( Amer) 101.6 ml/min Est GFR (Non-Af Amer) 87.7 ml/min BUN/Creatinine Ratio 22.4 H (10-20) Glucose 127 H (70-99(Fasting)) mg/dl Calcium 9.0 (8.5-10.1) mg/dl Magnesium 1.6 L (1.7-2.4) mg/dl Total Bilirubin 1.3 H (0.2-1.0) mg/dl AST 14 (13-39) U/L ALT 8 (7-52) U/L Alkaline Phosphatase 83 (34-104) U/L Troponin I High Sens 11.0 D (0-14) pg/ml Total Protein 6.6 (6.0-8.3) gm/dl Albumin 3.7 (3.4-5.0) gm/dl Globulin 2.9 (2.5-4.0) gm/dl Albumin/Globulin Ratio 1.3 (0.9-2) Digoxin (0.8-2.0) ng/ml 01/18/22 Range/Units 12:16 WBC (4.8-10.8) K/ul RBC (3.93-5.22) M/uL Hgb (12.0-16.0) g/dl Hct (34.1-44.9) % MCV (80.0-100.0) fL MCH (25.0-34.0) pg MCHC (32.0-36.0) g/dL RDW Std Deviation (36.4-46.3) fL RDW Coeff of Sb (11.5-14.5) % Plt Count (130-400) K/uL MPV (9.4-12.3) fL Immature Gran % (Auto) % Neut % (Auto) % Lymph % (Auto) % Grand % (Auto) % Eos % (Auto) % Baso % (Auto) % Neut # (Auto) (1.4-6.5) K/uL Lymph # (Auto) (1.2-3.4) K/uL Grand # (Auto) (0.24-0.82) K/uL Eos # (Auto) (0-0.50) K/uL Baso # (Auto) (0-0.2) K/uL Immature Gran # (Auto) (0.00-0.02) K/uL PT (9.0-12.0) Seconds INR (0.9-1.1) APTT (21.0-31.0) Seconds PTT Ratio Sodium (136-145) mmol/L Potassium (3.5-5.1) mmol/L Chloride (98-107) mmol/L Carbon Dioxide (21-32) mmol/L Anion Gap (3-11) BUN (6-23) mg/dl Creatinine (0.6-1.2) mg/dl Est Cr Clr Drug Dosing ml/min Est GFR ( Amer) ml/min Est GFR (Non-Af Amer) ml/min BUN/Creatinine Ratio (10-20) Glucose (70-99(Fasting)) mg/dl Calcium (8.5-10.1) mg/dl Magnesium (1.7-2.4) mg/dl Total Bilirubin (0.2-1.0) mg/dl AST (13-39) U/L ALT (7-52) U/L Alkaline Phosphatase (34-104) U/L Troponin I High Sens (0-14) pg/ml Total Protein (6.0-8.3) gm/dl Albumin (3.4-5.0) gm/dl Globulin (2.5-4.0) gm/dl Albumin/Globulin Ratio (0.9-2) Digoxin 1.0 (0.8-2.0) ng/ml Administered Medications Acetaminophen (Ofirmev) 1,000 mg in 100 mls @ 400 mls/hr IV Q8H LATOSHA Stop: 01/21/22 16:22 Last Admin: 01/18/22 17:15 Dose: 400 mls/hr Documented By: TAYLOR Sodium Chloride (Nss 1000ml) 1,000 mls @ 80 mls/hr IV .[id number] LATOSHA Stop: 02/17/22 16:22 Last Admin: 01/18/22 17:15 Dose: 80 mls/hr Documented By: TAYLOR Magnesium Sulfate/Dextrose (Magnesium Sulfate / D5w) 1 gm in 100 mls @ 50 mls/hr IV Q2H LATOSHA Stop: 01/18/22 20:59 Last Admin: 01/18/22 17:16 Dose: 50 mls/hr Documented By: TAYLOR Potassium Chloride (K Ash / Wtr) 10 meq in 100 mls @ 100 mls/hr IV Q1H LATOSHA Stop: 01/18/22 20:59 Last Admin: 01/18/22 17:15 Dose: 100 mls/hr Documented By: TAYLOR Azithromycin 500 mg/ Dextrose 255 mls @ 125 mls/hr IV Q24H LATOSHA Stop: 01/25/22 16:22 Last Admin: 01/18/22 17:16 Dose: 125 mls/hr Documented By: TAYLOR Ceftriaxone Sodium 1,000 mg/ (Dextrose) 60 mls @ 100 mls/hr IV Q24H LATOSHA; Protocol Stop: 01/25/22 16:22 Last Admin: 01/18/22 17:15 Dose: 100 mls/hr Documented By: TAYLOR Discontinued Medications Nicardipine HCl 25 mg/ Sodium (Chloride) 250 mls @ 50 mls/hr IV .Q5H LATOSHA; Protocol Stop: 02/17/22 12:29 Last Titration: 01/18/22 15:57 Dose: 0 mg/hr, 0 mls/hr Documented By: Admin: 01/18/22 12:28 Dose: 5 mg/hr, 50 mls/hr Documented By: BAY Co-signed By: EVANGELINA Fentanyl Citrate (Fentanyl Citrate) 2,500 mcg in 250 mls @ 5 mls/hr IV .Q50H LATOSHA; Protocol Stop: 02/01/22 12:29 Last Titration: 01/18/22 15:56 Dose: 0 mcg/hr, 0 mls/hr Documented By: ZIGGY Co-signed By: TOMAS Admin: 01/18/22 12:30 Dose: 50 mcg/hr, 5 mls/hr Documented By: BAY Co-signed By: EVANGELINA Rebolledo (Stat Iv Infusion Titration Per Protocol) 1 each N/A NOW STA Stop: 01/18/22 12:18 Last Admin: 01/18/22 12:28 Dose: Not Given Documented By: BAY Rebolledo (Stat Iv Infusion Titration Per Protocol) 1 each N/A NOW STA Stop: 01/18/22 12:23 Last Admin: 01/18/22 12:28 Dose: Not Given Documented By: BAY Imaging Data Radiologist's Impression: Chest X-Ray 01/18/22 11:39 XR chest 1V portable CLINICAL HISTORY: Stroke Like Symptoms TECHNIQUE: Single frontal radiograph of the chest was obtained. Comparison: Comparison is made to chest radiograph 09/13/2021 FINDINGS: Dual lead pacemaker is seen. Cardiomegaly is noted. The aortic arch is calcified. Prominence and cephalization of the vasculature is seen. Airspace opacities are seen in the right lower lung. Moderate right and small left pleural effusion. IMPRESSION: 1. Moderate right and small left pleural effusion with associated airspace opacities which may represent atelectasis, pneumonia, and/or aspiration. 2. Mild pulmonary edema. Stable cardiomegaly. ACT 112: Negative or not required by law. Electronically signed by: Mayo Miller M.D. 01/18/2022 12:[address] 01/18/22 11:39 CT OF THE HEAD WITHOUT CONTRAST CLINICAL HISTORY: Stroke Like Symptoms COMPARISON STUDY: Head CT and CTA of the head September 29, 2021. TECHNIQUE: Helical axial images of the head were obtained without IV contrast. Automated exposure control was utilized for the study. A dose lowering technique was utilized adhering to the principles of ALARA. FINDINGS: This exam is compromised by motion artifact. An acute hematoma, measuring 2.4 x 2 cm, within the right thalamus is noted. There is mild associated vasogenic edema with minimal mass effect. Intraventricular extension of hemorrhage is noted with hemorrhage within the right lateral ventricle and the third ventricle. There is no evidence for hydrocephalus. There may be trace hemorrhage within the occipital horns of the lateral ventricles. A small amount of acute hemorrhage overlying the right temporal lobe is noted. White matter hypodensities favor small vessel disease. There is no evidence for herniation. Basal cisterns are patent. No displaced calvarial fractures are identified. IMPRESSION: 1. Acute right thalamic hematoma, measuring 2.4 x 2 cm. Mild associated vasogenic edema. Intraventricular extension of hemorrhage, as above. No evidence for hydrocephalus. Findings discussed with Dr. Stubbs at time of dictation. 2. A small amount of acute hemorrhage within or overlying the right temporal lobe. This favors subarachnoid hemorrhage although parenchymal bleed could ap pear similar. 3. Exam compromised by motion artifact. ACT 112: Negative or not required by law. Electronically signed by: Galen Umanzor M.D. 01/18/2022 12:33 PM Discharge Plan Visit Data Chief Complaint: Stroke Alert Stated Complaint: STROKE SX ED Provider: Giuseppe Stubbs Discharge Problem: Hemorrhagic cerebrovascular accident (CVA), Hypoxia Patient Disposition: Admitted As Inpatient Discharge Instructions Interventions: ED Discharge Assessment Last Done: 01/18/22 15:55
[2022-01-18] MEDS ORDERED: STAT IV Infusion **Titration per Protocol STA ×2 (12:17→12:22)
--- NOTE | 2022-01-18 12:17 | XRay Report ---
XR chest 1V portable CLINICAL HISTORY: Stroke Like Symptoms TECHNIQUE: Single frontal radiograph of the chest was obtained. Comparison: Comparison is made to chest radiograph 09/13/2021 FINDINGS: Dual lead pacemaker is seen. Cardiomegaly is noted. The aortic arch is calcified. Prominence and ceph alization of the vasculature is seen. Airspace opacities are seen in the right lower lung. Moderate r ight and small left pleural effusion. IMPRESSION: 1. Moderate right and small left pleural effusion with associated airspace opacities which may repre sent atelectasis, pneumonia, and/or aspiration. 2. Mild pulmonary edema. Stable cardiomegaly. ACT 112: Negative or not required by law. Electronically signed by: Mayo Miller M.D. 01/18/2022 12:16 PM
[2022-01-18] MEDS ORDERED: fentaNYL BOLUS from BAG IV PRN (12:22)
[2022-01-18 12:29] LABS: Basophils # (auto) 0.07 K/uL (0-0.2); Basophils % (auto) 0.9 %; Eosinophils # (auto) 0.51 K/uL (0-0.50); Eosinophils % (auto) 6.6 %; Hematocrit (blood only) 36.8 % (34.1-44.9); Hemoglobin 11.9 g/dl (12.0-16.0); Immature Granulocytes # (auto) 0.03 K/uL (0.00-0.02); Immature Granulocytes % (auto) 0.4 %; Lymphocytes # (auto) 0.68 K/uL (1.2-3.4); Lymphocytes % (auto) 8.8 %; Mean Corpuscular Hemoglobin 28.7 pg (25.0-34.0); Mean Corpuscular Hgb Conc 32.3 g/dL (32.0-36.0); Mean Corpuscular Volume 88.7 fL (80.0-100.0); Mean Platelet Volume 9.6 fL (9.4-12.3); Neutrophils # (auto) 5.76 K/uL (1.4-6.5); Neutrophils % (auto) 74.3 %; Platelet Count 257 K/uL (130-400); RDW Coefficient of Variation 14.6 % (11.5-14.5); RDW Standard Deviation 46.8 fL (36.4-46.3); Red Blood Count 4.15 M/uL (3.93-5.22); White Blood Count 7.75 K/ul (4.8-10.8)
[2022-01-18] MEDS ORDERED: niCARdipine 25 MG in SODIUM CHLORIDE 0.9% 240 ML IV SCH (12:30)
[2022-01-18] MEDS ORDERED: fentaNYL citrate 2,500 MCG/250 ML BAG IV SCH (12:30)
--- NOTE | 2022-01-18 12:34 | CT Scan Report ---
CT OF THE HEAD WITHOUT CONTRAST CLINICAL HISTORY: Stroke Like Symptoms COMPARISON STUDY: Head CT and CTA of the head September 29, 2021. TECHNIQUE: Helical axial images of the head were obtained without IV contrast. Automated exposure con trol was utilized for the study. A dose lowering technique was utilized adhering to the principles o f ALARA. FINDINGS: This exam is compromised by motion artifact. An acute hematoma, measuring 2.4 x 2 cm, withi n the right thalamus is noted. There is mild associated vasogenic edema with minimal mass effect. Int raventricular extension of hemorrhage is noted with hemorrhage within the right lateral ventricle and the third ventricle. There is no evidence for hydrocephalus. There may be trace hemorrhage within th e occipital horns of the lateral ventricles. A small amount of acute hemorrhage overlying the right t emporal lobe is noted. White matter hypodensities favor small vessel disease. There is no evidence fo r herniation. Basal cisterns are patent. No displaced calvarial fractures are identified. IMPRESSION: 1. Acute right thalamic hematoma, measuring 2.4 x 2 cm. Mild associated vasogenic edema. Intraventric ular extension of hemorrhage, as above. No evidence for hydrocephalus. Findings discussed with Dr. Mark roy at time of dictation. 2. A small amount of acute hemorrhage within or overlying the right temporal lobe. This favors subara chnoid hemorrhage although parenchymal bleed could appear similar. 3. Exam compromised by motion artifact. ACT 112: Negative or not required by law. Electronically signed by: Galen Umanzor M.D. 01/18/2022 12:33 PM
[2022-01-18 12:41] LABS: INR 1.2 (0.9-1.1); Partial Thromboplastin Ratio 1.2; Partial Thromboplastin Time 32.2 Seconds (21.0-31.0); Prothrombin Time 13.1 Seconds (9.0-12.0)
[2022-01-18 12:55] LABS: Albumin Globulin Ratio 1.3 (0.9-2); Albumin Level 3.7 gm/dl (3.4-5.0); BUN Creatinine Ratio 22.4 (10-20); Bilirubin,Total 1.3 mg/dl (0.2-1.0); Creatinine Clr Calc Pharmacy 81.7 ml/min; Est GFR (African American) 101.6 ml/min; Est GFR (Non-African American) 87.7 ml/min; Globulin 2.9 gm/dl (2.5-4.0); Magnesium 1.6 mg/dl (1.7-2.4); Potassium 3.3 mmol/L (3.5-5.1); Total Protein 6.6 gm/dl (6.0-8.3)
--- NOTE | 2022-01-18 13:08 | History & Physical Report ---
Date of Service January 18, 2022 Assessment & Plan (1) Intracranial hemorrhage: (2) Hemorrhagic cerebrovascular accident (CVA): (3) Cerebral amyloid angiopathy: Plan: Admit to tele Patient presenting from [facility] for evaluation after acute onset left sided weakness and facial droop Head CT - Acute right thalamic hematoma, measuring 2.4 x 2 cm. Mild associated vasogenic edema. Intraventricular extension of hemorrhage, as above. No evidence for hydrocephalus. A small amount of acute hemorrhage within or overlying the right temporal lobe. This favors subarachnoid hemorrhage although parenchymal bleed could appear similar. Patient with prior history of hemorrhagic CVA in 2019 in the setting of Coumadin therapy and cerebral amyloid angiopathy. 08/2021 s/p fall with subarachnoid hemorrhage and right MCA clot s/p thrombectomy. Patient expressed to ED physician that she did not want any invasive interventions done. Please refer to Dr. Joyner's addendum regarding conversation with neurosurgery and patient's daughter. Will treat conservatively by rechecking head CT this evening and controlling BP Neurology consult (4) Abnormal CXR: Plan: CXR suggesting possible pneumonia, patient at high risk for aspiration 2/2 CVA Will start empiric azithromycin and ceftriaxone (5) Atrial fibrillation: Plan: hx of, not anticoagulated secondary to prior hemorrhagic CVA and cerebral amyloid angiopathy Typically rate controlled on digoxin and metoprolol however currently unable to take p.o., will start metoprolol 5mg IV q6h (6) Diabetes mellitus, type 2: Plan: diet controlled, monitor BSG, provide Novolog if needed (7) Tachy-karthik syndrome: (8) Status post placement of cardiac pacemaker: Plan: pacer interrogation (9) DVT prophylaxis: Plan: SCDs History of Present Illness Chief Complaint: Stroke symptoms Primary Care Provider: [facility] [place] 81 year old female with PMH DM type II, hypothyroidism, dyslipidemia, cerebral amyloid angiopathy, HTN, hemorrhagic CVA, chronic diastolic CHF, permanent atrial fibrillation not anticoagulated due to prior hemorrhagic CVA, fall 09/21 with subarachnoid hemorrhage and clot in the right MCA s/p thrombectomy, and other problems below who presents to the ED with strokelike symptoms. Patient resides at [facility] and while showering this morning, patient was noted t o have acute onset left facial droop and left-sided weakness. Patient was sent to the ED for further evaluation. Upon arrival to the ED, head CT showed acute right thalamic hematoma, measuring 2.4 x 2 cm. Patient had expressed to the ED physician Dr. Stubbs that she did not want any invasive interventions to be done. Presenting BP 203/94. Patient was placed on nicardipine and fentanyl drips in an attempt to control blood pressure. By the time of my exam, patient is mostly non verbal but was able to communicate with Dr. Joyner through hand grasping. Allergies Allergy/AdvReac Type Severity Reaction Status Date / Time Penicillins Allergy Intermediate Rash Verified 01/18/22 12:55 codeine AdvReac Intermediate Headache Verified 01/18/22 12:55 Opioids - Morphine Analogues AdvReac Intermediate Headache Verified 01/18/22 12:55 Influenza Virus Vaccines AdvReac Unknown Unknown Verified 01/18/22 12:55 Home Medications Medication Instructions Recorded Confirmed Type Preparation H Gel 1 applic topical Q4 PRN Hemorrhoids 01/18/22 01/18/22 History acetaminophen 325 mg tablet 650 mg PO Q4 PRN Pain 01/18/22 01/18/22 History (Tylenol) amino ac-protein hydro-whey 1 ea PO AMPM 01/18/22 01/18/22 History protein 15 gram-100 kcal/30 mL oral liquid (ProSource Plus) aspirin 81 mg tablet,delayed 81 mg PO DAILY 01/18/22 01/18/22 History release atorvastatin 80 mg tablet 80 mg PO HS 01/18/22 01/18/22 History cholestyramine (with sugar) 4 gram 1 ea PO AMHS 01/18/22 01/18/22 History powder for susp in a packet clonidine HCl 0.1 mg tablet 0.1 mg PO BID 01/18/22 01/18/22 History digoxin 125 mcg (0.125 mg) tablet 125 mcg PO DAILY 01/18/22 01/18/22 History escitalopram oxalate 10 mg tablet 10 mg PO DAILY 01/18/22 01/18/22 History ferrous sulfate 325 mg (65 mg 325 mg PO DAILY 01/18/22 01/18/22 History iron) tablet,delayed release furosemide 40 mg tablet 60 mg PO BID 01/18/22 01/18/22 History levothyroxine 100 mcg tablet 100 mcg PO DAILY 01/18/22 01/18/22 History loperamide 2 mg capsule 2 mg PO Q4 PRN .LOOSE STOOLS 01/18/22 01/18/22 History loperamide 2 mg capsule 2 mg PO QAM 01/18/22 01/18/22 History melatonin 5 mg tablet 5 mg PO HS 01/18/22 01/18/22 History metoprolol tartrate 100 mg tablet 100 mg PO BID 01/18/22 01/18/22 History pantoprazole 40 mg tablet,delayed 40 mg PO DAILY 01/18/22 01/18/22 History release potassium chloride 10 mEq 20 meq PO BID 01/18/22 01/18/22 History capsule,extended release triamcinolone acetonide 0.1 % 1 applic topical BID 01/18/22 01/18/22 History topical cream vit C 250 mg-vit E 90 mg-zinc 40 1 tab PO AMHS 01/18/22 01/18/22 History mg-copper 1 [id number] capsule (PreserVision AREDS-2) Past Med/Surg History Medical History (Updated 01/19/22 @ 07:33 by Aure Joyner DO) MILA inhibitor intolerance hyperkalemia Anemia Atrial fibrillation Cerebral amyloid angiopathy CVA (cerebrovascular accident due to intracerebral hemorrhage) Diabetes mellitus, type 2 Dyslipidemia History of basal cell cancer History of hemorrhagic cerebrovascular accident (CVA) with residual deficit Hypertension Hypothyroidism Late onset Alzheimer's dementia without behavioral disturbance Lymphedema Rectal bleeding Tachy-karthik syndrome Surgical History H/O hysterectomy with oophorectomy History of appendectomy History of laparoscopic cholecystectomy Status post placement of cardiac pacemaker Family History Father Diabetes Mother Heart disease Hypertension Social History Smoking Status: Never smoker Second Hand Exposure: Yes; Hx Alcohol Use: Yes Alcohol type: hard liquor Hx Substance Use: No Preferred Language: Icelandic Communication Ability: Effective Shipping And Receiving Weigher Required: No Beliefs That Will Affect Care: None marital status: / Current Living Situation: Senior Care Current Living Situation Comment: [facility] Feels Safe at Home: Yes Assistive Devices: Oxygen - Continuous Review of Systems Review of Systems: Unobtainable due to reduced consciousness Physical Exam Constitutional: + ill appearing vitals as above ENMT: external ear and nose normal, oropharynx normal Respiratory: normal respiratory effort; no respiratory distress Auscultation: + diminished lung sounds Cardiovascular: Rate/Rhythm: + irregularly irregular Vessels: normal peripheral pulses Extremities: + edema (+2-3 edema BLE) Gastrointestinal (Abdomen): normal bowel sounds, soft, nontender, no hepatosplenomegaly Musculoskeletal: Extremities: no cyanosis and no clubbing Skin: no rashes, warm and dry Neurologic: minimally responsive to verbal stimuli, non verbal, + left facial droop with flaccid left side, strong right hand grasp Results & Data Results & Data ([facility]) Vital Signs (Past 12 Hours) Vital Signs Temp Pulse Pulse Resp BP BP Pulse Ox 01/18/22 12:20 01/18/22 11:40 71 22 203/94 H 99 01/18/22 12:02 36.8 C 81 20 148/111 H 82 L O2 Del Method O2 Flow Rate 01/18/22 12:20 Nasal Cannula 01/18/22 11:40 Nasal Cannula 5 01/18/22 12:02 Room Air Laboratory Results Short CBC 01/18/22 Range/Units 12:13 WBC 7.75 (4.8-10.8) K/ul Hgb 11.9 L (12.0-16.0) g/dl Hct 36.8 (34.1-44.9) % Plt Count 257 (130-400) K/uL BMP 01/18/22 12:13 Sodium 137 Potassium 3.3 L Chloride 102 Carbon Dioxide 30 BUN 13 Creatinine 0.58 L Glucose 127 H Calcium 9.0 Liver Function 01/18/22 Range/Units 12:13 Total Bilirubin 1.3 H (0.2-1.0) mg/dl AST 14 (13-39) U/L ALT 8 (7-52) U/L Alkaline Phosphatase 83 (34-104) U/L Albumin 3.7 (3.4-5.0) gm/dl Diagnostic Findings Chest X-Ray 01/18/22 11:39 XR chest 1V portable CLINICAL HISTORY: Stroke Like Symptoms TECHNIQUE: Single frontal radiograph of the chest was obtained. Comparison: Comparison is made to chest radiograph 09/13/2021 FINDINGS: Dual lead pacemaker is seen. Cardiomegaly is noted. The aortic arch is calcified. Prominence and cephalization of the vasculature is seen. Airspace opacities are seen in the right lower lung. Moderate right and small left pleural effusion. IMPRESSION: 1. Moderate right and small left pleural effusion with associated airspace opacities which may represent atelectasis, pneumonia, and/or aspiration. 2. Mild pulmonary edema. Stable cardiomegaly. ACT 112: Negative or not required by law. Electronically signed by: Mayo Miller M.D. 01/18/2022 12:[address] 01/18/22 11:39 CT OF THE HEAD WITHOUT CONTRAST CLINICAL HISTORY: Stroke Like Symptoms COMPARISON STUDY: Head CT and CTA of the head September 29, 2021. TECHNIQUE: Helical axial images of the head were obtained without IV contrast. Automated exposure control was utilized for the study. A dose lowering technique was utilized adhering to the principles of ALARA. FINDINGS: This exam is compromised by motion artifact. An acute hematoma, measuring 2.4 x 2 cm, within the right thalamus is noted. There is mild associated vasogenic edema with minimal mass effect. Intraventricular extension of hemorrhage is noted with hemorrhage within the right lateral ventricle and the third ventricle. There is no evidence for hydrocephalus. There may be trace hemorrhage within the occipital horns of the lateral ventricles. A small amount of acute hemorrhage overlying the right temporal lobe is noted. White matter hypodensities favor small vessel disease. There is no evidence for herniation. Basal cisterns are patent. No displaced calvarial fractures are identified. IMPRESSION: 1. Acute right thalamic hematoma, measuring 2.4 x 2 cm. Mild associated vasogenic edema. Intraventricular extension of hemorrhage, as above. No evidence for hydrocephalus. Findings discussed with Dr. Stubbs at time of dictation. 2. A small amount of acute hemorrhage within or overlying the right temporal lobe. This favors subarachnoid hemorrhage although parenchymal bleed could appear similar. 3. Exam compromised by motion artifact. ACT 112: Negative or not required by law. Electronically signed by: Galen Umanzor M.D. 01/18/2022 12:33 PM Code Status & VTE Plan Code Status Patient is a DNR as per POLST form. Supervising Physician Co-Signing Physician Notes Date of Service: January 18, 2022 I have seen and examined the patient and have discussed the case with the provider above. I agree with the assessment and plan as stated with the following exceptions. 81 yo F presents as a transfer from [facility]. She was being showered by a nurse who noticed acute onset left facial droop and left-sided weakness. She was transferred to the ER where she was evaluated and was still alert and oriented. A CT scan of her head revealed an acute thalamic hematoma 2.4cm x 2cm in width with mild vasogenic edema and intraventricular extension of the hemorrhage. There was also evidence of a small amount of acute hemorrhage around the right temporal lobe favoring a subarachnoid hemorrhage. She is currently taking ASA 81mg daily but no other blood thinners. She has a h/o chronic atrial fibrillation and is off coumadin therapy. She has a pacemaker and her EKG today reveals a V-paced rhythm with underlying atrial fibrillation. She recently had a fall in August 2021 and a subsequent subarachnoid hemorrhage with a clot in her right middle cerebral artery. She was taken for a mechanical thrombectomy to remove the clot. It was felt that the most likely etiology of her stroke was atrial fibrillation not on anticoagulation. She was clear in her wishes to the ER physician today that she did not want any heroic measures including no procedures even if this meant was imminent. She also has a POLST form that supports this which was previously filled out by she and her primary care physician. She was transiently placed on a nicardipine drip and a drip of fentanyl in an effort to keep her blood pressure controlled (203/94). It was 148/111 and this will not be continued as she is now moving to the floor for comfort measures only. She is still able to communicate through hand squeeze and shaking her head appropriately. She denies being in any pain or having a headache. After explaining that our plan was for comfort measures, she shook her head yes in agreement that this was acceptable. She has hypoxia present and is on oxygen supplementation. CXR reveals bilateral pleural effusions and possible bilateral infiltrates associated with this. Per nursing staff she has not been having any new symptoms. Aspiration is always a possibility given her stroke, but she has not attempted to overtly take in anything PO since the onset of symptoms. She has good strength the the right arm with intact hand site leasing agent. Left arm is flaccid. There was difficulty in moving her lower extremities as they are heavy and there seemed to be some resistance to passive flexion of her knees. Babinski is positive with upgoing toes on the left foot, and negative with downgoing toes on the right. Lab work and studies were reviewed with normal CBC, INR 1.2 (previously 1.3 in September 21). Potassium was 3.3 and renal function is normal. Mg is low at 1.6 and troponin was negative. Digoxin level within normal limits. Imaging as noted above. Acute spontaneous intracerebral hemorrhage in 81 yo F with history of embolic stroke, cerebral amyloid angiopathy and prior intraparenchymal hemorrhage. Although initially the plan was for comfort measures, after personally speaking with [place] [facility] allowing [place] some time to be conservatively managed in the PCU is appropriate. Thalamic hematomas are typically conservatively managed. This was discussed with the daughter who is on board. Neurology was consulted and left recommendations similar to neurosurgery including keeping BP<150 systolic, HOB at 30 degrees and continued stroke management as if she were a non hemorrhagic stroke patient. Aspirin and all blood thinners are obviously held. I discussed the case with Dr. Ochoa from palliative medicine. Ms. Rinaldi has a clear POLST that states she is not interested in feeding tubes or other life sustaining therapies such as IVF if there is no chance of recovery. Will continue to monitor her progress and switch to hospice care if she declines or doesn't recover in a few days. I discussed the case with Dr. Law from neurosurgery who is covering call for the weekend in case of further questions. When I reassessed the patient on the floor around 8:30pm she was speaking and was oriented x 3. She denied being in any pain and her facial droop was improving. Discussed the case with the primary RN and stopped all IV potassium to avoid causticity to the vessel and possible discomfort to the patient. She already received about 20 MEq. BP was at goal. Cont PCU monitoring. DO Ar
--- NOTE | 2022-01-18 13:52 | Communication Note ---
Date of Service: January 18, 2022 81 yo F presents as a transfer from [facility]. She was being showered by a nurse who noticed acute onset left facial droop and left-sided weakness. She was transferred to the ER where she was evaluated and was still alert and oriented. A CT scan of her head revealed an acute thalamic hematoma 2.4cm x 2cm in width with mild vasogenic edema and intraventricular extension of the hemorrhage. There was also evidence of a small amount of acute hemorrhage around the right temporal lobe favoring a subarachnoid hemorrhage. She is currently taking ASA 81mg daily but no other blood thinners. She has a h/o chronic atrial fibrillation and is off coumadin therapy. She has a pacemaker and her EKG today reveals a V-paced rhythm with underlying atrial fibrillation. She recently had a fall in August 2021 and a subsequent subarachnoid hemorrhage with a clot in her right middle cerebral artery. She was taken for a mechanical thrombectomy to remove the clot. It was felt that the most likely etiology of her stroke was atrial fibrillation not on anticoagulation. She was clear in her wishes to the ER physician today that she did not want any heroic measures including no procedures even if this meant was imminent. She also has a POLST form that supports this which was previously filled out by she and her primary care physician. She was transiently placed on a nicardipine drip and a drip of fentanyl in an effort to keep her blood pressure controlled (203/94). It was 148/111 and this will not be continued as she is now moving to the floor for comfort measures only. She is still able to communicate through hand squeeze and shaking her head appropriately. She denies being in any pain or having a headache. After explaining that our plan was for comfort measures, she shook her head yes in agreement that this was acceptable. She has hypoxia present and is on oxygen supplementation. CXR reveals bilateral pleural effusions and possible bilateral infiltrates associated with this. Per nursing staff she has not been having any new symptoms. Aspiration is always a possibility given her stroke, but she has not attempted to overtly take in anything PO since the onset of symptoms. She has good strength the the right arm with intact hand boom master. Left arm is flaccid. There was difficulty in moving her lower extremities as they are heavy and there seemed to be some resistance to passive flexion of her knees. Babinski is positive with upgoing toes on the left foot, and negative with downgoing toes on the right. Lab work and studies were reviewed with normal CBC, INR 1.2 (previously 1.3 in September 21). Potassium was 3.3 and renal function is normal. Mg is low at 1.6 and troponin was negative. Digoxin level within normal limits. Imaging as noted above. Acute spontaneous intracerebral hemorrhage in 81 yo F with history of embolic stroke, cerebral amyloid angiopathy and prior intraparenchymal hemorrhage. Alth ough initially the plan was for comfort measures, after personally speaking with neurosurgery at [facility] [place], allowing her some time to be conservatively managed in the PCU is appropriate. Thalamic hematomas are typically conservatively managed. This was discussed with the daughter who is on board. Neurology was consulted and left recommendations similar to neurosurgery including keeping BP<150 systolic, HOB at 30 degrees and continued stroke management as if she were a non hemorrhagic stroke patient. Aspirin and all blood thinners are obviously held. I discussed the case with Dr. Ochoa from palliative medicine. Ms. Rinaldi has a clear POLST that states she is not interested in feeding tubes or other life sustaining therapies such as IVF if there is no chance of recovery. Will continue to monitor her progress and switch to hospice care if she declines or doesn't recover in a few days. I discussed the case with Dr. Law from neurosurgery who is covering call for the weekend in case of further questions. When I reassessed the patient on the floor around 8:30pm she was speaking and was oriented x 3. She denied being in any pain and her facial droop was improving. Discussed the case with the primary RN and stopped all IV potassium to avoid causticity to the vessel and possible discomfort to the patient. She already received about 20 MEq. BP was at goal. Cont PCU monitoring. DO Ar
--- NOTE | 2022-01-18 13:52 | Electrocardiogram Report ---
Test Reason : Blood Pressure : / mmHG Vent. Rate : 065 BPM Atrial Rate : 045 BPM P-R Int : 000 ms QRS Dur : 136 ms QT Int : 464 ms P-R-T Axes : 091 013 -58 degrees QTc Int : 482 ms Poor data quality, interpretation may be adversely affected Ventricular-paced rhythm with some supraventricular conduction Probable underlying atrial fibrillation Abnormal ECG When compared with ECG of 29-SEP-2021 13:28, Vent. rate has decreased BY 16 BPM Confirmed by Lenin Coello ([id number]) on 01/18/2022 1:51:48 PM Referred By: Confirmed By:Lenin Coello
--- NOTE | 2022-01-18 15:25 | Palliative Care Consultation ---
Date of Consultation January 18, 2022 Assessment & Plan (1) Pain: Per her daughter, Awilda Jordan, Mrs. Rinaldi has had chronic neck pain and arthritis pain in her knees. She does not take regular analgesics. She has had codeine in the past and had a severe headache. Awilda thinks that she had a similar problem with morphine but is less sure about the morphine. She does not have a true opioid allergy. At this time, I think IV tylenol would be appropriate for her pain as needed. (2) Palliative care encounter: Mrs. Rinaldi has a completed POLST form which indicates that she would not want resuscitation, would want limited interventions and antibiotics but would not want artificial feeding or hydration. Her daughter tells me that she has been very clear about her wishes and would not want surgery or other life prolonging treatments at this time. Unfortunately, given the location of her hemorrhage and limited edema, her prognosis is not entirely clear at this time. She may certainly have some dysphagia and would not want PEG or NG feeding. After discussion between Awilda and Dr. Joyner, plan will be for supportive care and monitoring at this time until her prognosis is more clear. I discussed this with Awilda also. She has some anxiety about the uncertainty over the next few days but very much wants what's best for her mother. She has been preparing herself for her mother's for some time with her cerebrovascular disease and though she is tearful, she wants to honor her mother's wishes. We will follow and work with her family over the next several days as her condition develops. Discussed with [facility] and Dr. Joyner. 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 She underwent thrombectomy at that time and did well with only some residual gait abnormalities. She has comorbid diabetes, permanent afib with pacer placed in 2019, diastolic heart failure and hypothyroidism. She resides at [facility] and was noted to have left facial droop and left sided weakness. CT in ER shows 2.4 x 2 cm right thalamic hematoma with extension into the ventricle but little vasogenic edema per report. She has been clear about her wishes and did not want extraordinary measures which she was able to confirm in ER earlier today. She is currently lethargic. She does squeeze my hand but does not open her eyes or respond to her name. She is currently on a fentanyl infusion and appears comfortable. Allergies Allergy/AdvReac Type Severity Reaction Status Date / Time Penicillins Allergy Intermediate Rash Verified 01/18/22 12:55 codeine AdvReac Intermediate Headache Verified 01/18/22 12:55 Opioids - Morphine Analogues AdvReac Intermediate Headache Verified 01/18/22 12:55 Influenza Virus Vaccines AdvReac Unknown Unknown Verified 01/18/22 12:55 Home Medications Medication Instructions Recorded Confirmed Type Preparation H Gel 1 applic topical Q4 PRN Hemorrhoids 01/18/22 01/18/22 History acetaminophen 325 mg tablet 650 mg PO Q4 PRN Pain 01/18/22 01/18/22 History (Tylenol) amino ac-protein hydro-whey 1 ea PO AMPM 01/18/22 01/18/22 History protein 15 gram-100 kcal/30 mL oral liquid (ProSource Plus) aspirin 81 mg tablet,delayed 81 mg PO DAILY 01/18/22 01/18/22 History release atorvastatin 80 mg tablet 80 mg PO HS 01/18/22 01/18/22 History cholestyramine (with sugar) 4 gram 1 ea PO AMHS 01/18/22 01/18/22 History powder for susp in a packet clonidine HCl 0.1 mg tablet 0.1 mg PO BID 01/18/22 01/18/22 History digoxin 125 mcg (0.125 mg) tablet 125 mcg PO DAILY 01/18/22 01/18/22 History escitalopram oxalate 10 mg tablet 10 mg PO DAILY 01/18/22 01/18/22 History ferrous sulfate 325 mg (65 mg 325 mg PO DAILY 01/18/22 01/18/22 History iron) tablet,delayed release furosemide 40 mg tablet 60 mg PO BID 01/18/22 01/18/22 History levothyroxine 100 mcg tablet 100 mcg PO DAILY 01/18/22 01/18/22 History loperamide 2 mg capsule 2 mg PO Q4 PRN .LOOSE STOOLS 01/18/22 01/18/22 History loperamide 2 mg capsule 2 mg PO QAM 01/18/22 01/18/22 History melatonin 5 mg tablet 5 mg PO HS 01/18/22 01/18/22 History metoprolol tartrate 100 mg tablet 100 mg PO BID 01/18/22 01/18/22 History pantoprazole 40 mg tablet,delayed 40 mg PO DAILY 01/18/22 01/18/22 History release potassium chloride 10 mEq 20 meq PO BID 01/18/22 01/18/22 History capsule,extended release triamcinolone acetonide 0.1 % 1 applic topical BID 01/18/22 01/18/22 History topical cream vit C 250 mg-vit E 90 mg-zinc 40 1 tab PO AMHS 01/18/22 01/18/22 History mg-copper 1 [id number] capsule (PreserVision AREDS-2) Patient History Medical History MILA inhibitor intolerance hyperkalemia Anemia Atrial fibrillation Cerebral amyloid angiopathy CVA (cerebrovascular accident due to intracerebral hemorrhage) Diabetes mellitus, type 2 Dyslipidemia History of basal cell cancer History of hemorrhagic cerebrovascular accident (CVA) with residual deficit Hypertension Hypothyroidism Late onset Alzheimer's dementia without behavioral disturbance Lymphedema Rectal bleeding Tachy-karthik syndrome Surgical History H/O hysterectomy with oophorectomy History of appendectomy History of laparoscopic cholecystectomy Status post placement of cardiac pacemaker Family History Father Diabetes Mother Heart disease Hypertension Social History Smoking Status: Never smoker Second Hand Exposure: Yes; Hx Alcohol Use: Yes Alcohol type: hard liquor Hx Substance Use: No Preferred Language: Swiss Communication Ability: Effective Clothing Room Supervisor Required: No Beliefs That Will Affect Care: Jew Jew Beliefs: scientology marital status: / Current Living Situation: [facility] Current Living Situation Comment: [facility] Feels Safe at Home: Yes Assistive Devices: Walker Review of Systems Review of Systems: Unobtainable due to reduced consciousness Physical Exam Constitutional: + frail appearing and + lethargic Respiratory: normal respiratory effort; no labored breathing Cardiovascular: Rate/Rhythm: regular rate and regular rhythm Gastrointestinal (Abdomen): abdomen nontender Musculoskeletal: Extremities: + muscle atrophy Skin: warm and dry Neurologic: limited with lethargy Results & Data ([facility]) Vital Signs (Past 12 Hours) Vital Signs Temp Pulse Pulse Resp BP BP Pulse Ox 01/18/22 14:40 61 16 99 01/18/22 14:30 62 17 99 01/18/22 14:30 127/55 L 01/18/22 14:20 61 19 99 01/18/22 14:15 133/62 01/18/22 14:00 124/58 L 01/18/22 13:50 63 17 99 01/18/22 13:45 136/65 01/18/22 13:45 62 18 100 01/18/22 13:30 136/71 01/18/22 13:20 61 19 95 01/18/22 13:15 147/62 H 01/18/22 13:15 64 20 100 01/18/22 13:10 60 19 100 01/18/22 13:00 61 21 100 01/18/22 13:00 157/75 H 01/18/22 12:50 63 21 100 01/18/22 12:46 66 21 100 01/18/22 12:46 161/71 H 01/18/22 12:40 66 21 100 01/18/22 12:31 191/76 H 01/18/22 12:17 203/94 H 01/18/22 12:10 67 26 H 100 01/18/22 12:01 81 25 H 82 L 01/18/22 12:20 01/18/22 11:40 71 22 203/94 H 99 01/18/22 12:02 98.2 F 81 20 148/111 H 82 L O2 Del Method O2 Flow Rate 01/18/22 14:40 Nasal Cannula 5 01/18/22 14:30 Nasal Cannula 5 01/18/22 14:30 Nasal Cannula 5 01/18/22 14:20 Nasal Cannula 5 01/18/22 14:15 Nasal Cannula 5 01/18/22 14:00 Nasal Cannula 2 01/18/22 13:50 Nasal Cannula 2 01/18/22 13:45 Nasal Cannula 2 01/18/22 13:45 Nasal Cannula 2 01/18/22 13:30 Nasal Cannula 5 01/18/22 13:20 Nasal Cannula 5 01/18/22 13:15 Nasal Cannula 5 01/18/22 13:15 Nasal Cannula 5 01/18/22 13:10 Nasal Cannula 5 01/18/22 13:00 Nasal Cannula 5 01/18/22 13:00 Nasal Cannula 5 01/18/22 12:50 Nasal Cannula 5 01/18/22 12:46 Nasal Cannula 5 01/18/22 12:46 Nasal Cannula 5 01/18/22 12:40 Nasal Cannula 5 01/18/22 12:31 Nasal Cannula 5 01/18/22 12:17 Nasal Cannula 2 01/18/22 12:10 Nasal Cannula 2 01/18/22 12:01 Room Air 01/18/22 12:20 Nasal Cannula 01/18/22 11:40 Nasal Cannula 5 01/18/22 12:02 Room Air PG Care Time/CCT Total # of Minutes Spent Total Time Spent: 58 Total Time Spent with Patient: Total time spent is greater than 50% in coordination of care (as documented) at patient's floor/unit and/or counseling patient: goals of care, symptom management, family education and support Coding Level of Care Code 39651 Initial Inpt Care Lvl 2 Diagnoses Pain R52 Palliative care encounter Z51.5
[2022-01-18] MEDS ORDERED: PHARMACIST DISCHARGE MED REC CONSULT PRN (16:23)
[2022-01-18] MEDS ORDERED: LORazepam 2 MG/1 ML VIAL IV PRN (16:23)
[2022-01-18] MEDS ORDERED: ONDANSETRON INJ 2 MG/ML 2 ML VIAL IV PRN (16:23)
[2022-01-18] MEDS ORDERED: SODIUM CHLORIDE 0.9% 1000ML 1,000 ML IV SCH (16:23)
[2022-01-18] MEDS ORDERED: LORazepam 1 MG in SYRINGE 0 ML IV PRN (16:49)
[2022-01-18] MEDS: cefTRIAXone SODIUM 1,000 MG in DEXTROSE 5% 50 ML IV SCH (17:15)
[2022-01-18] MEDS: ACETAMINOPHEN 1,000 MG/100 ML VIAL IV SCH (17:15)
[2022-01-18] MEDS: POTASSIUM CHLORIDE / WTR 10 MEQ/100 ML PLCT IV SCH ×3 (17:15→19:23)
[2022-01-18] MEDS: AZITHROMYCIN 500 MG in DEXTROSE 5% 250 ML IV SCH (17:16)
[2022-01-18] MEDS: MAGNESIUM SULFATE / D5W 1 GM/100 ML BAG IV SCH ×2 (17:16→19:26)
--- NOTE | 2022-01-18 17:31 | Neurology Consultation ---
Date of Consultation January 18, 2022 Assessment & Plan (1) Hemorrhagic cerebrovascular accident (CVA): Impression: The patient was brought to emergency department after she had sudden onset of left-sided weakness, and head CT showed moderate size right basal ganglia with intraventricular extension. She has cerebral amyloid angiopathy, and hypertension, which are likely cause of intracranial hemorrhage. Primary embolic stroke with secondary hemorrhagic conversion is in differential. Recommendations: Repeat head CT in next 24 hours. We will hold aspirin. Supportive care. Prognosis is discussed with the family. We will follow the patient's advanced directives. She is currently DNR and DNI. We should keep systolic blood pressure below 150. IV normal saline 100 mL/h. We will keep patient n.p.o. for now. Physical therapy and speech pathology consultations. (2) Atrial fibrillation: Impression: The patient has long history of atrial fibrillation, status post pacemaker placement. She is not a candidate for anticoagulation because of amyloid angiopathy and prior intracranial hemorrhage. (3) Cerebral amyloid angiopathy: (4) Diabetes mellitus, type 2: (5) Hypertension: (6) Tachy-karthik syndrome: Plan Thank you for the consultation. History of Present Illness Reason for Consultation: ICH Requesting Physician: Aure Joyner DO Attending Physician: Aure Joyner DO History of Present Illness The patient is a 81-year-old female, who had sudden onset of left facial droop, left-sided weakness, and some speech disturbance, and was brought to emergency department. Head CT revealed right thalamic hemorrhagic stroke. She was on aspirin, which was held. Based on the patient's advanced directives, family decided not to pursue with any additional testing, tube feeding, and the patient is currently DNR and DNI. She denies headache and currently comfortable. The patient has extensive medical problems including cerebral amyloid angiopathy, hemorrhagic CVA, permanent atrial fibrillation not anticoagulated due to prior hemorrhagic stroke in August 2021, right MCA thrombus, status post thrombectomy, hypertension, and congestive heart failure. On presentation, blood pressure was elevated significantly, at 203/94. The patient was placed on nicardipine and fentanyl drips, which lowered blood pressure. She is currently somnolent but arousable. She follows commands. The case is discussed with the family. They are not certain about comfort care at this time. I have reviewed the patient's chart including imaging studies and visualized them personally. I have discussed the case with family members. Allergies Allergy/AdvReac Type Severity Reaction Status Date / Time Penicillins Allergy Intermediate Rash Verified 01/18/22 12:55 codeine AdvReac Intermediate Headache Verified 01/18/22 12:55 Opioids - Morphine Analogues AdvReac Intermediate Headache Verified 01/18/22 12:55 Influenza Virus Vaccines AdvReac Unknown Unknown Verified 01/18/22 12:55 Home Medications Medication Instructions Recorded Confirmed Type Preparation H Gel 1 applic topical Q4 PRN Hemorrhoids 01/18/22 01/18/22 History acetaminophen 325 mg tablet 650 mg PO Q4 PRN Pain 01/18/22 01/18/22 History (Tylenol) amino ac-protein hydro-whey 1 ea PO AMPM 01/18/22 01/18/22 History protein 15 gram-100 kcal/30 mL oral liquid (ProSource Plus) aspirin 81 mg tablet,delayed 81 mg PO DAILY 01/18/22 01/18/22 History release atorvastatin 80 mg tablet 80 mg PO HS 01/18/22 01/18/22 History cholestyramine (with sugar) 4 gram 1 ea PO AMHS 01/18/22 01/18/22 History powder for susp in a packet clonidine HCl 0.1 mg tablet 0.1 mg PO BID 01/18/22 01/18/22 History digoxin 125 mcg (0.125 mg) tablet 125 mcg PO DAILY 01/18/22 01/18/22 History escitalopram oxalate 10 mg tablet 10 mg PO DAILY 01/18/22 01/18/22 History ferrous sulfate 325 mg (65 mg 325 mg PO DAILY 01/18/22 01/18/22 History iron) tablet,delayed release furosemide 40 mg tablet 60 mg PO BID 01/18/22 01/18/22 History levothyroxine 100 mcg tablet 100 mcg PO DAILY 01/18/22 01/18/22 History loperamide 2 mg capsule 2 mg PO Q4 PRN .LOOSE STOOLS 01/18/22 01/18/22 History loperamide 2 mg capsule 2 mg PO QAM 01/18/22 01/18/22 History melatonin 5 mg tablet 5 mg PO HS 01/18/22 01/18/22 History metoprolol tartrate 100 mg tablet 100 mg PO BID 01/18/22 01/18/22 History pantoprazole 40 mg tablet,delayed 40 mg PO DAILY 01/18/22 01/18/22 History release potassium chloride 10 mEq 20 meq PO BID 01/18/22 01/18/22 History capsule,extended release triamcinolone acetonide 0.1 % 1 applic topical BID 01/18/22 01/18/22 History topical cream vit C 250 mg-vit E 90 mg-zinc 40 1 tab PO AMHS 01/18/22 01/18/22 History mg-copper 1 [id number] capsule (PreserVision AREDS-2) Patient History Medical History MILA inhibitor intolerance hyperkalemia Anemia Atrial fibrillation Cerebral amyloid angiopathy CVA (cerebrovascular accident due to intracerebral hemorrhage) Diabetes mellitus, type 2 Dyslipidemia History of basal cell cancer History of hemorrhagic cerebrovascular accident (CVA) with residual deficit Hypertension Hypothyroidism Late onset Alzheimer's dementia without behavioral disturbance Lymphedema Rectal bleeding Tachy-karthik syndrome Surgical History H/O hysterectomy with oophorectomy History of appendectomy History of laparoscopic cholecystectomy Status post placement of cardiac pacemaker Family History Father Diabetes Mother Heart disease Hypertension Social History Smoking Status: Never smoker Second Hand Exposure: Yes; Hx Alcohol Use: Yes Alcohol type: hard liquor Hx Substance Use: No Preferred Language: Maori Communication Ability: Effective Police Lieutenant Required: No Beliefs That Will Affect Care: None marital status: / Current Living Situation: Alf Current Living Situation Comment: [facility] Feels Safe at Home: Yes Safety Concerns: Feels Safe At This Time Assistive Devices: Oxygen - Continuous Review of Systems Review of Systems: All systems reviewed & are unremarkable except as noted in HPI & below Physical Exam Physical Exam: General Examination: Constitutional: Well developed person in no acute distress. HEENT: Normal exam with inspection. CV: Hearth rhythm is paced and regular. Neck: Supple, no carotid bruits. Lungs: Non-labored and comfortable breathing. Abdomen: Soft, non-tender, non-distended. Skin: Discoloration of skin and distal lower extremities. Extremities: 2-3+ pitting edema in ankles and feet bilaterally. NEUROLOGICAL EXAMINATION: Mental Status: Somnolent but arousable Cranial Nerves: II-XII are intact. No nystagmus. Funduscopy: Unable to visualize Motor: The patient moves right upper and lower extremity normally. Left upper and lower extremity strength is diminished more so in the arm. Tone: Decreased tone in left upper and lower extremities. Sensory: Unable to assess reliably. Coordination: Unable to assess. Speech: Limited verbal output which is dysarthric. She follows verbal commands. Gait: Unable to assess. Musculoskeletal: Normal muscle bulk, no atrophy. Results & Data ([facility]) Vital Signs (Past 12 Hours) Vital Signs Temp Pulse Pulse Resp BP BP Pulse Ox 01/18/22 16:34 36.6 C 66 20 159/69 H 98 01/18/22 16:30 01/18/22 15:55 92 01/18/22 15:20 68 16 99 01/18/22 15:15 62 15 100 01/18/22 15:15 126/57 L 01/18/22 15:10 61 19 100 01/18/22 15:00 63 15 100 01/18/22 15:00 124/56 L 01/18/22 14:50 61 15 100 01/18/22 14:45 120/56 L 01/18/22 14:45 64 16 99 01/18/22 14:40 61 16 99 01/18/22 14:30 62 17 99 01/18/22 14:30 127/55 L 01/18/22 14:20 61 19 99 01/18/22 14:15 133/62 01/18/22 14:00 124/58 L 01/18/22 13:50 63 17 99 01/18/22 13:45 136/65 01/18/22 13:45 62 18 100 01/18/22 13:30 136/71 01/18/22 13:20 61 19 95 01/18/22 13:15 147/62 H 01/18/22 13:15 64 20 100 01/18/22 13:10 60 19 100 01/18/22 13:00 61 21 100 01/18/22 13:00 157/75 H 01/18/22 12:50 63 21 100 01/18/22 12:46 66 21 100 01/18/22 12:46 161/71 H 01/18/22 12:40 66 21 100 01/18/22 12:31 191/76 H 01/18/22 12:17 203/94 H 01/18/22 12:10 67 26 H 100 01/18/22 12:01 81 25 H 82 L 01/18/22 12:20 01/18/22 11:40 71 22 203/94 H 99 01/18/22 12:02 36.8 C 81 20 148/111 H 82 L O2 Del Method O2 Flow Rate 01/18/22 16:34 Nasal Cannula 2 01/18/22 16:30 Nasal Cannula 2 01/18/22 15:55 Nasal Cannula 2 01/18/22 15:20 01/18/22 15:15 01/18/22 15:15 01/18/22 15:10 01/18/22 15:00 01/18/22 15:00 01/18/22 14:50 01/18/22 14:45 01/18/22 14:45 01/18/22 14:40 Nasal Cannula 5 01/18/22 14:30 Nasal Cannula 5 01/18/22 14:30 Nasal Cannula 5 01/18/22 14:20 Nasal Cannula 5 01/18/22 14:15 Nasal Cannula 5 01/18/22 14:00 Nasal Cannula 2 01/18/22 13:50 Nasal Cannula 2 01/18/22 13:45 Nasal Cannula 2 01/18/22 13:45 Nasal Cannula 2 01/18/22 13:30 Nasal Cannula 5 01/18/22 13:20 Nasal Cannula 5 01/18/22 13:15 Nasal Cannula 5 01/18/22 13:15 Nasal Cannula 5 01/18/22 13:10 Nasal Cannula 5 01/18/22 13:00 Nasal Cannula 5 01/18/22 13:00 Nasal Cannula 5 01/18/22 12:50 Nasal Cannula 5 01/18/22 12:46 Nasal Cannula 5 01/18/22 12:46 Nasal Cannula 5 01/18/22 12:40 Nasal Cannula 5 01/18/22 12:31 Nasal Cannula 5 01/18/22 12:17 Nasal Cannula 2 01/18/22 12:10 Nasal Cannula 2 01/18/22 12:01 Room Air 01/18/22 12:20 Nasal Cannula 01/18/22 11:40 Nasal Cannula 5 01/18/22 12:02 Room Air Laboratory Results Laboratory Results - last 24 hr 01/18/22 01/18/22 01/18/22 12:13 12:13 12:13 WBC 7.75 RBC 4.15 Hgb 11.9 L Hct 36.8 MCV 88.7 MCH 28.7 MCHC 32.3 RDW Std Deviation 46.8 H RDW Coeff of Sb 14.6 H Plt Count 257 MPV 9.6 Immature Gran % (Auto) 0.4 Neut % (Auto) 74.3 Lymph % (Auto) 8.8 [place] % (Auto) 9.0 Eos % (Auto) 6.6 Baso % (Auto) 0.9 Neut # (Auto) 5.76 Lymph # (Auto) 0.68 L [place] # (Auto) 0.70 Eos # (Auto) 0.51 H Baso # (Auto) 0.07 Immature Gran # (Auto) 0.03 H PT 13.1 H INR 1.2 H APTT 32.2 H PTT Ratio 1.2 Sodium 137 Potassium 3.3 L Chloride 102 Carbon Dioxide 30 Anion Gap 5 BUN 13 Creatinine 0.58 L Est Cr Clr Drug Dosing 81.7 Est GFR ( Amer) 101.6 Est GFR (Non-Af Amer) 87.7 BUN/Creatinine Ratio 22.4 H Glucose 127 H Calcium 9.0 Magnesium 1.6 L Total Bilirubin 1.3 H AST 14 ALT 8 Alkaline Phosphatase 83 Troponin I High Sens 11.0 D Total Protein 6.6 Albumin 3.7 Globulin 2.9 Albumin/Globulin Ratio 1.3 Digoxin SARS-CoV-2, RNA, NAAT 01/18/22 01/18/22 12:16 13:47 WBC RBC Hgb Hct MCV MCH MCHC RDW Std Deviation RDW Coeff of Sb Plt Count MPV Immature Gran % (Auto) Neut % (Auto) Lymph % (Auto) [place] % (Auto) Eos % (Auto) Baso % (Auto) Neut # (Auto) Lymph # (Auto) [place] # (Auto) Eos # (Auto) Baso # (Auto) Immature Gran # (Auto) PT INR APTT PTT Ratio Sodium Potassium Chloride Carbon Dioxide Anion Gap BUN Creatinine Est Cr Clr Drug Dosing Est GFR ( Amer) Est GFR (Non-Af Amer) BUN/Creatinine Ratio Glucose Calcium Magnesium Total Bilirubin AST ALT Alkaline Phosphatase Troponin I High Sens Total Protein Albumin Globulin Albumin/Globulin Ratio Digoxin 1.0 SARS-CoV-2, RNA, NAAT NEGATIVE Diagnostic Findings Chest X-Ray 01/18/22 11:39 XR chest 1V portable CLINICAL HISTORY: Stroke Like Symptoms TECHNIQUE: Single frontal radiograph of the chest was obtained. Comparison: Comparison is made to chest radiograph 09/13/2021 FINDINGS: Dual lead pacemaker is seen. Cardiomegaly is noted. The aortic arch is calcified. Prominence and cephalization of the vasculature is seen. Airspace opacities are seen in the right lower lung. Moderate right and small left pleural effusion. IMPRESSION: 1. Moderate right and small left pleural effusion with associated airspace opacities which may represent atelectasis, pneumonia, and/or aspiration. 2. Mild pulmonary edema. Stable cardiomegaly. ACT 112: Negative or not required by law. Electronically signed by: Mayo Miller M.D. 01/18/2022 12:[address] 01/18/22 11:39 CT OF THE HEAD WITHOUT CONTRAST CLINICAL HISTORY: Stroke Like Symptoms COMPARISON STUDY: Head CT and CTA of the head September 29, 2021. TECHNIQUE: Helical axial images of the head were obtained without IV contrast. Automated exposure control was utilized for the study. A dose lowering technique was utilized adhering to the principles of ALARA. FINDINGS: This exam is compromised by motion artifact. An acute hematoma, measuring 2.4 x 2 cm, within the right thalamus is noted. There is mild associated vasogenic edema with minimal mass effect. Intraventricular extension of hemorrhage is noted with hemorrhage within the right lateral ventricle and the third ventricle. There is no evidence for hydrocephalus. There may be trace hemorrhage within the occipital horns of the lateral ventricles. A small amount of acute hemorrhage overlying the right temporal lobe is noted. White matter hypodensities favor small vessel disease. There is no evidence for herniation. Basal cisterns are patent. No displaced calvarial fractures are identified. IMPRESSION: 1. Acute right thalamic hematoma, measuring 2.4 x 2 cm. Mild associated vasogenic edema. Intraventricular extension of hemorrhage, as above. No evidence for hydrocephalus. Findings discussed with Dr. Stubbs at time of dictation. 2. A small amount of acute hemorrhage within or overlying the right temporal lobe. This favors subarachnoid hemorrhage although parenchymal bleed could appear similar. 3. Exam compromised by motion artifact. ACT 112: Negative or not required by law. Electronically signed by: Galen Umanzor M.D. 01/18/2022 12:33 PM
[2022-01-18] MEDS ORDERED: LABETALOL HCL IV 5 MG/ML 20ML IV STA (17:44)
[2022-01-18] MEDS ORDERED: METOPROLOL TARTRATE 1 MG/ML VIAL IV SCH (18:00)
--- NOTE | 2022-01-18 21:50 | CT Scan Report ---
CT SCAN OF THE BRAIN WITHOUT IV CONTRAST CLINICAL HISTORY: Follow-up hemorrhage. COMPARISON STUDY: CT of the brain dated 01/18/2022. CT of the brain performed earlier the same day 1 03/20/2021. TECHNIQUE: Unenhanced axial CT scan of the brain is performed from the vertex to the skull base. A do se lowering technique was utilized adhering to the principles of ALARA. The patient was scanned twice due to motion artifact. The examination is motion compromised. CT DOSE: 1913.44 mGy.cm FINDINGS: Brain parenchyma: There is age-related involutional change noting moderate to advanced subcortical an d periventricular microangiopathic disease. Again seen is a parenchymal hemorrhage centered in the ri ght thalamus. This measures 2.6 x 2.2 cm, and there is surrounding edema. There is approximately 4 mm of [id number] midline shift. There is intraventricular extension, with layering blood products pr esent within both lateral ventricles. Intraventricular blood has significantly increased as compared to today's earlier examination. Subarachnoid extension is again seen along the right temporoparietal sulci. There is no evidence of acute territorial ischemia by CT criteria. No extra-axial fluid collec tion is seen. Ventricles, sulci, cisterns: Prominent secondary to involutional change. Intraventricular hemorrhage is discussed above. Ventricular caliber is unchanged from today's earlier examination. Intracranial vasculature: There is atherosclerotic calcification of the cavernous carotid and vertebr al arteries. Calvarium: Unremarkable. Sinuses and mastoids: The visualized paranasal sinuses are clear. The mastoid air cells are well pneu matized. Orbits: The bony orbits are grossly intact. There are bilateral ocular lens implants. IMPRESSION: 1. The parenchymal hemorrhage centered in the right thalamus is unchanged to modestly increased in si ze as compared to today's earlier examination. 2. Surrounding edema has somewhat increased. There is mild [id number] midline shift. 3. Again seen is subarachnoid and intraventricular extension of hemorrhage. Intraventricular blood liao s significantly increased from today's earlier examination. 4. Ventricular caliber is unchanged from today's earlier examination. ACT 112: Negative or not required by law. Electronically signed by: Joe Metzger M.D. 01/18/2022 9:48 PM
[2022-01-18] MEDS: METOPROLOL TARTRATE 1 MG/ML VIAL IV SCH (21:53)
[2022-01-18] MEDS ORDERED: ATROPINE SULFATE 0.1 MG/ML 10ML SYR IV STA (21:55)
[2022-01-18] MEDS ORDERED: ALBUT/IPRATROP 3MG/0.5MG NEB 3 ML VIAL NEB STA (21:55)
[2022-01-18] MEDS ORDERED: ALBUT/IPRATROP 3MG/0.5MG NEB 3 ML VIAL ONE (22:05)
[2022-01-18] MEDS ORDERED: FUROSEMIDE INJ 20 MG/2 ML VIAL IV STA (22:10)
--- NOTE | 2022-01-18 23:55 | XRay Report ---
SINGLE VIEW CHEST CLINICAL HISTORY: Dyspnea. FINDINGS: An AP, portable, upright chest radiograph is compared to study dated 01/18/2022. The examin ation is degraded by portable technique, apical lordotic positioning, and patient rotation. A 2-lead cardiac pacemaker is unchanged in position. The heart is enlarged noting atherosclerotic calcificatio n of the thoracic area. There is pulmonary vascular congestion with evidence of interstitial edema. T here are layering pleural effusions with dependent consolidation. No pneumothorax is seen. The skelet al structures are osteopenic. The bony thorax is grossly intact. IMPRESSION: 1. Cardiomegaly and cardiac pacemaker with evidence of congestive failure and pulmonary edema. This h as worsened as compared to today's earlier examination. 2. Layering pleural effusions with dependent consolidation. ACT 112: Negative or not required by law. Electronically signed by: Joe Metzger M.D. 01/18/2022 11:54 PM
[2022-01-19] MEDS: METOPROLOL TARTRATE 1 MG/ML VIAL IV SCH ×4 (00:18→17:57)
[2022-01-19] MEDS: ACETAMINOPHEN 1,000 MG/100 ML VIAL IV SCH ×3 (01:37→17:55)
[2022-01-19 07:02] LABS: Basophils # (auto) 0.05 K/uL (0-0.2); Basophils % (auto) 0.7 %; Eosinophils # (auto) 0.61 K/uL (0-0.50); Eosinophils % (auto) 8.5 %; Hematocrit (blood only) 32.1 % (34.1-44.9); Hemoglobin 10.5 g/dl (12.0-16.0); Immature Granulocytes # (auto) 0.02 K/uL (0.00-0.02); Immature Granulocytes % (auto) 0.3 %; Lymphocytes # (auto) 0.83 K/uL (1.2-3.4); Lymphocytes % (auto) 11.6 %; Mean Corpuscular Hemoglobin 28.4 pg (25.0-34.0); Mean Corpuscular Hgb Conc 32.7 g/dL (32.0-36.0); Mean Corpuscular Volume 86.8 fL (80.0-100.0); Mean Platelet Volume 9.7 fL (9.4-12.3); Monocytes # (auto) 0.82 K/uL (0.24-0.82); Monocytes % (auto) 11.5 %; Neutrophils # (auto) 4.82 K/uL (1.4-6.5); Neutrophils % (auto) 67.4 %; Platelet Count 213 K/uL (130-400); RDW Coefficient of Variation 14.6 % (11.5-14.5); RDW Standard Deviation 46.4 fL (36.4-46.3); White Blood Count 7.15 K/ul (4.8-10.8)
[2022-01-19 07:24] LABS: BUN Creatinine Ratio 19.6 (10-20); Calcium 8.8 mg/dl (8.5-10.1); Chol HDL Ratio 1.7 (0-5); Creatinine Clr Calc Pharmacy 91.4 ml/min; Est GFR (Non-African American) 91.5 ml/min; Potassium 3.2 mmol/L (3.5-5.1)
[2022-01-19] MEDS ORDERED: LABETALOL HCL IV 5 MG/ML 20ML IV STA ×2 (09:27→17:05)
[2022-01-19 09:56] LABS: Estimated Average Glucose 105 mg/dl; Hemoglobin A1C 5.3 % (4.5-5.6)
[2022-01-19] MEDS: POTASSIUM CHLORIDE / WTR 10 MEQ/100 ML PLCT IV SCH ×2 (10:18→11:14)
--- NOTE | 2022-01-19 15:13 | Neurology Progress Note ---
Date of Service January 19, 2022 Assessment & Plan (1) Hemorrhagic cerebrovascular accident (CVA): Plan: Impression: The patient was brought to emergency department after she had sudden onset of left-sided weakness, and head CT showed moderate size right basal gangl ia with intraventricular extension. She has cerebral amyloid angiopathy, and hypertension, which are likely cause of intracranial hemorrhage. Primary embolic stroke with secondary hemorrhagic conversion is in differential. Clinically improving. Recommendations: Repeat head CT today. We will hold aspirin. --PT/OT. She will need rehab. We should keep systolic blood pressure below 150. (2) Atrial fibrillation: Plan: Impression: The patient has long history of atrial fibrillation, status post pacemaker placement. She is not a candidate for anticoagulation because of amyloid angiopathy and prior intracranial hemorrhage. (3) Cerebral amyloid angiopathy: (4) Diabetes mellitus, type 2: (5) Hypertension: (6) Tachy-karthik syndrome: Admission and Anticipated Discharge Date Admission Date: January 18, 2022 Subjective The patient has been doing much better today. Her mental status has been improved. She is alert and oriented, and responsive. She complains of some occipital headache. She is able to eat pured diet today without difficulty. She still has significant left hemiparesis. Blood pressure control has been well. Repeat head CT is pending. Review of Systems Review of Systems: All systems reviewed & are unremarkable except as noted in Subjective Physical Exam Physical Exam: General Examination: Constitutional: Well developed person in no acute distress. HEENT: Normal exam with inspection. CV: Hearth rhythm is paced and regular. Neck: Supple, no carotid bruits. Lungs: Non-labored and comfortable breathing. Abdomen: Soft, non-tender, non-distended. Skin: Discoloration of skin and distal lower extremities. Extremities: 2-3+ pitting edema in ankles and feet bilaterally. NEUROLOGICAL EXAMINATION: Mental Status: Alert and oriented to place and person. Not oriented to time. Cranial Nerves: II-XII are intact. No nystagmus. Funduscopy: Unable to visualize Motor: The patient moves right upper and lower extremity normally. Left upper and lower extremity strength is diminished around 2+/5. Tone: Decreased tone in left upper and lower extremities. Sensory: Unable to assess reliably. Coordination: Unable to assess. Speech: Fluent, comprehension is intact. Gait: Unable to assess. Musculoskeletal: Normal muscle bulk, no atrophy. Results & Data ([facility]) Vital Signs (Past 12 Hours) Vital Signs Temp Pulse Pulse Resp BP BP Pulse Ox 01/19/22 11:18 36.7 C 77 18 173/68 H 99 01/19/22 11:14 86 173/68 H 01/19/22 10:31 01/19/22 07:33 36.8 C 80 17 172/80 H 97 01/19/22 04:27 61 166/64 H 01/19/22 03:53 36.2 C L 61 16 166/64 H 97 O2 Del Method O2 Flow Rate 01/19/22 11:18 Nasal Cannula 1 01/19/22 11:14 01/19/22 10:31 Nasal Cannula 1 01/19/22 07:33 Nasal Cannula 1.5 01/19/22 04:27 01/19/22 03:53 Nasal Cannula 1 Laboratory Results Laboratory Results - last 24 hr 01/18/22 01/19/22 01/19/22 17:57 00:16 06:17 WBC RBC Hgb Hct MCV MCH MCHC RDW Std Deviation RDW Coeff of Sb Plt Count MPV Immature Gran % (Auto) Neut % (Auto) Lymph % (Auto) Armstrong % (Auto) Eos % (Auto) Baso % (Auto) Neut # (Auto) Lymph # (Auto) Armstrong # (Auto) Eos # (Auto) Baso # (Auto) Immature Gran # (Auto) Sodium Potassium Chloride Carbon Dioxide Anion Gap BUN Creatinine Est Cr Clr Drug Dosing Est GFR ( Amer) Est GFR (Non-Af Amer) BUN/Creatinine Ratio Glucose POC Glucose 110 H 93 Estimat Average Glucose Hemoglobin A1c Calcium Triglycerides Cholesterol LDL Cholesterol, Calc VLDL Cholesterol, Calc HDL Cholesterol Cholesterol/HDL Ratio Nasal Screen MRSA (PCR) Negative 01/19/22 01/19/22 01/19/22 06:20 06:20 06:20 WBC 7.15 RBC 3.70 L Hgb 10.5 L Hct 32.1 L MCV 86.8 MCH 28.4 MCHC 32.7 RDW Std Deviation 46.4 H RDW Coeff of Sb 14.6 H Plt Count 213 MPV 9.7 Immature Gran % (Auto) 0.3 Neut % (Auto) 67.4 Lymph % (Auto) 11.6 Armstrong % (Auto) 11.5 Eos % (Auto) 8.5 Baso % (Auto) 0.7 Neut # (Auto) 4.82 Lymph # (Auto) 0.83 L Armstrong # (Auto) 0.82 Eos # (Auto) 0.61 H Baso # (Auto) 0.05 Immature Gran # (Auto) 0.02 Sodium 139 Potassium 3.2 L Chloride 105 Carbon Dioxide 29 Anion Gap 5 BUN 10 Creatinine 0.51 L Est Cr Clr Drug Dosing 91.4 Est GFR ( Amer) 106.0 Est GFR (Non-Af Amer) 91.5 BUN/Creatinine Ratio 19.6 Glucose 83 POC Glucose Estimat Average Glucose 105 Hemoglobin A1c 5.3 Calcium 8.8 Triglycerides 65 Cholesterol 69 LDL Cholesterol, Calc 16 VLDL Cholesterol, Calc 13 HDL Cholesterol 40 Cholesterol/HDL Ratio 1.7 Nasal Screen MRSA (PCR) 01/19/22 12:25 WBC RBC Hgb Hct MCV MCH MCHC RDW Std Deviation RDW Coeff of Sb Plt Count MPV Immature Gran % (Auto) Neut % (Auto) Lymph % (Auto) Armstrong % (Auto) Eos % (Auto) Baso % (Auto) Neut # (Auto) Lymph # (Auto) Armstrong # (Auto) Eos # (Auto) Baso # (Auto) Immature Gran # (Auto) Sodium Potassium Chloride Carbon Dioxide Anion Gap BUN Creatinine Est Cr Clr Drug Dosing Est GFR ( Amer) Est GFR (Non-Af Amer) BUN/Creatinine Ratio Glucose POC Glucose 113 H Estimat Average Glucose Hemoglobin A1c Calcium Triglycerides Cholesterol LDL Cholesterol, Calc VLDL Cholesterol, Calc HDL Cholesterol Cholesterol/HDL Ratio Nasal Screen MRSA (PCR) Diagnostic Findings Chest X-Ray 01/18/22 11:39 XR chest 1V portable CLINICAL HISTORY: Stroke Like Symptoms TECHNIQUE: Single frontal radiograph of the chest was obtained. Comparison: Comparison is made to chest radiograph 09/13/2021 FINDINGS: Dual lead pacemaker is seen. Cardiomegaly is noted. The aortic arch is calcified. Prominence and cephalization of the vasculature is seen. Airspace opacities are seen in the right lower lung. Moderate right and small left pleural effusion. IMPRESSION: 1. Moderate right and small left pleural effusion with associated airspace opacities which may represent atelectasis, pneumonia, and/or aspiration. 2. Mild pulmonary edema. Stable cardiomegaly. ACT 112: Negative or not required by law. Electronically signed by: Mayo Miller M.D. 01/18/2022 12:[address] 01/18/22 11:39 CT OF THE HEAD WITHOUT CONTRAST CLINICAL HISTORY: Stroke Like Symptoms COMPARISON STUDY: Head CT and CTA of the head September 29, 2021. TECHNIQUE: Helical axial images of the head were obtained without IV contrast. Automated exposure control was utilized for the study. A dose lowering tech nique was utilized adhering to the principles of ALARA. FINDINGS: This exam is compromised by motion artifact. An acute hematoma, measuring 2.4 x 2 cm, within the right thalamus is noted. There is mild associated vasogenic edema with minimal mass effect. Intraventricular extension of hemorrhage is noted with hemorrhage within the right lateral ventricle and the third ventricle. There is no evidence for hydrocephalus. There may be trace hemorrhage within the occipital horns of the lateral ventricles. A small amount of acute hemorrhage overlying the right temporal lobe is noted. White matter hypodensities favor small vessel disease. There is no evidence for herniation. Basal cisterns are patent. No displaced calvarial fractures are identified. IMPRESSION: 1. Acute right thalamic hematoma, measuring 2.4 x 2 cm. Mild associated vasogenic edema. Intraventricular extension of hemorrhage, as above. No evidence for hydrocephalus. Findings discussed with Dr. Stubbs at time of dictation. 2. A small amount of acute hemorrhage within or overlying the right temporal lobe. This favors subarachnoid hemorrhage although parenchymal bleed could appear similar. 3. Exam compromised by motion artifact. ACT 112: Negative or not required by law. Electronically signed by: Galen Umanzor M.D. 01/18/2022 12:[address] 01/18/22 21:00 CT SCAN OF THE BRAIN WITHOUT IV CONTRAST CLINICAL HISTORY: Follow-up hemorrhage. COMPARISON STUDY: CT of the brain dated 01/18/2022. CT of the brain performed earlier the same day 01/18/2022. TECHNIQUE: Unenhanced axial CT scan of the brain is performed from the vertex to the skull base. A dose lowering technique was utilized adhering to the principles of ALARA. The patient was scanned twice due to motion artifact. The examination is motion compromised. CT DOSE: 1913.44 mGy.cm FINDINGS: Brain parenchyma: There is age-related involutional change noting moderate to advanced subcortical and periventricular microangiopathic disease. Again seen is a parenchymal hemorrhage centered in the right thalamus. This measures 2.6 x 2.2 cm, and there is surrounding edema. There is approximately 4 mm of [id number] midline shift. There is intraventricular extension, with layering blood products present within both lateral ventricles. Intraventricular blood has significantly increased as compared to today's earlier examination. Subarachnoid extension is again seen along the right temporoparietal sulci. There is no evidence of acute territorial ischemia by CT criteria. No extra-axial fluid collection is seen. Ventricles, sulci, cisterns: Prominent secondary to involutional change. Intraventricular hemorrhage is discussed above. Ventricular caliber is unchanged from today's earlier examination. Intracranial vasculature: There is atherosclerotic calcification of the cavernous carotid and vertebral arteries. Calvarium: Unremarkable. Sinuses and mastoids: The visualized paranasal sinuses are clear. The mastoid air cells are well pneumatized. Orbits: The bony orbits are grossly intact. There are bilateral ocular lens implants. IMPRESSION: 1. The parenchymal hemorrhage centered in the right thalamus is unchanged to modestly increased in size as compared to today's earlier examination. 2. Surrounding edema has somewhat increased. There is mild kwgnl-[id number] midline shift. 3. Again seen is subarachnoid and intraventricular extension of hemorrhage. Intraventricular blood has significantly increased from today's earlier examination. 4. Ventricular caliber is unchanged from today's earlier examination. ACT 112: Negative or not required by law. Electronically signed by: Joe Metzger M.D. 01/18/2022 9:48 PM Chest X-Ray 01/18/22 21:53 SINGLE VIEW CHEST CLINICAL HISTORY: Dyspnea. FINDINGS: An AP, portable, upright chest radiograph is compared to study dated 01/18/2022. The examination is degraded by portable technique, apical lordotic positioning, and patient rotation. A 2-lead cardiac pacemaker is unchanged in position. The heart is enlarged noting atherosclerotic calcification of the thoracic area. There is pulmonary vascular congestion with evidence of interstitial edema. There are layering pleural effusions with dependent consolidation. No pneumothorax is seen. The skeletal structures are osteopenic. The bony thorax is grossly intact. IMPRESSION: 1. Cardiomegaly and cardiac pacemaker with evidence of congestive failure and pulmonary edema. This has worsened as compared to today's earlier examination. 2. Layering pleural effusions with dependent consolidation. ACT 112: Negative or not required by law. Electronically signed by: Joe Metzger M.D. 01/18/2022 11:54 PM
[2022-01-19] MEDS ORDERED: CARBOHYDRATES FOR HYPOGLYCEMIA PO PRN (16:00)
[2022-01-19] MEDS ORDERED: GLUCAGON FOR INJ 1 MG VIAL SQ PRN (16:00)
[2022-01-19] MEDS ORDERED: DEXTROSE 50% 50 ML SYRINGE IV PRN (16:00)
[2022-01-19] MEDS ORDERED: GLUCOSE 40% GEL 15 GM TUBE PO PRN (16:00)
[2022-01-19] MEDS ORDERED: GLUCOSE 10 TAB/TUBE PO PRN (16:00)
--- NOTE | 2022-01-19 17:12 | Hospitalist Progress Note ---
Date of Service January 19, 2022 Assessment & Plan (1) Intracranial hemorrhage: (2) Hemorrhagic cerebrovascular accident (CVA): (3) Cerebral amyloid angiopathy: Plan: Presenting from [facility] for evaluation after acute onset left sided weakness and facial droop Head CT - Acute right thalamic hematoma, measuring 2.4 x 2 cm. Mild associated vasogenic edema. Intraventricular extension of hemorrhage, as above. No evidence for hydrocephalus. A small amount of acute hemorrhage within or overlying the right temporal lobe. This favors subarachnoid hemorrhage although parenchymal bleed could appear similar. Patient with prior history of hemorrhagic CVA in 2019 in the setting of Coumadin therapy and cerebral amyloid angiopathy. 08/2021 s/p fall with subarachnoid hemorrhage and right MCA clot s/p thrombectomy. Patient expressed to ED physician that she did not want any invasive interventions. Today at bedside family said she does not want any invasive intervention Admitting team discussed case with neurosurgery [place] [facility] as well as neurosurgery recommended to keep SBP below 150 Will start her on clonidine patch to avoid rebound HTN since pt was on oral clonidine that held due to difficulty swallow Will repeat CT head later today PT/OT on board Speech on board and started her on puree diet Continue monitor closely (4) Abnormal CXR: Plan: CXR showed Cardiomegaly and cardiac pacemaker with evidence of congestive failure and pulmonary edema. Layering pleural effusions with dependent consolidation. Currently on empiric azithromycin and ceftriaxone Will give lasix 20mg IVx1 Will repeat CXR in am (5) Atrial fibrillation: Plan: hx of, not anticoagulated secondary to prior hemorrhagic CVA and cerebral amyloid angiopathy Continue IV metoprolol 2.5mg IV q6h (6) Diabetes mellitus, type 2: Plan: Hba1c 5.3 diet controlled Will put on insulin sliding scale Continue monitor BS Hypokalemia Potassium 3.2 Potassium replaced Continue monitor BMP (7) Tachy-karthik syndrome: (8) Status post placement of cardiac pacemaker: Plan: pacer interrogation (9) DVT prophylaxis: Plan: SCDs due to acute hemorrhagic CVA Code status DNR Admission and Anticipated Discharge Date Admission Date: January 18, 2022 Subjective Pt was seen and examined for follow up of hemorrhagic stroke Lying in bed with no acute distress with family member at bedside Family said that pt is more awake today she is asking for food Daughter said that she moved the left LE where she was not able to move yesterday Denies any chest pain, palpitation, dizziness and SOB Review of Systems Review of Systems: All systems reviewed & are unremarkable except as noted in Subjective Physical Exam Physical Exam: General- No acute distress Head- atraumatic Eyes- PERRL, EOMI, ENT- oropharynx clear Neck- supple, no JVD Lungs- clear to auscultation Heart- irregular rhythm; no murmur Abdomen- normal bowel sounds, soft, nontender Extremities- no calf tenderness, +edema, +Left upper and lower extremity strength is diminished around 2+/5, able to move toes when scratching bottom of feet Neuro- alert, oriented x 3; PERRL, EOMI; no facial palsy; no dysarthria Skin- warm & dry Results & Data Results & Data ([facility]) Vital Signs (Past 12 Hours) Vital Signs Temp Pulse Pulse Resp BP BP Pulse Ox 01/19/22 14:19 73 01/19/22 06:45 69 01/19/22 15:16 37.0 C 78 18 167/67 H 98 01/19/22 11:18 36.7 C 77 18 173/68 H 99 01/19/22 11:14 86 173/68 H 01/19/22 10:31 01/19/22 07:33 36.8 C 80 17 172/80 H 97 O2 Del Method O2 Flow Rate 01/19/22 14:19 01/19/22 06:45 01/19/22 15:16 Nasal Cannula 2 01/19/22 11:18 Nasal Cannula 1 01/19/22 11:14 01/19/22 10:31 Nasal Cannula 1 01/19/22 07:33 Nasal Cannula 1.5
[2022-01-19] MEDS: INSULIN ASPART PER UNIT SC SCH ×2 (17:24→20:35)
[2022-01-19] MEDS: cefTRIAXone SODIUM 1,000 MG in DEXTROSE 5% 50 ML IV SCH (17:55)
[2022-01-19] MEDS: AZITHROMYCIN 500 MG in DEXTROSE 5% 250 ML IV SCH (17:56)
[2022-01-19] MEDS ORDERED: cloNIDine HCL 0.1 MG/24 HR TRANSDERM SYS TD SCH (18:00)
[2022-01-19] MEDS ORDERED: FUROSEMIDE INJ 20 MG/2 ML VIAL IV ONE (20:00)
[2022-01-19] MEDS ORDERED: METOPROLOL TARTRATE 1 MG/ML VIAL IV SCH (21:35)
[2022-01-19] MEDS ORDERED: METOPROLOL TARTRATE 1 MG/ML VIAL IV STA (23:33)
[2022-01-20] MEDS: CHECK CLONIDINE PATCH PLACEMENT SCH ×3 (00:06→12:36)
[2022-01-20] MEDS: ACETAMINOPHEN 1,000 MG/100 ML VIAL IV SCH ×3 (02:07→17:28)
[2022-01-20] MEDS: METOPROLOL TARTRATE 1 MG/ML VIAL IV SCH ×2 (05:04→12:36)
[2022-01-20] MEDS ORDERED: OLANZapine 10 MG/2.1 ML SDV IM PRN (05:46)
--- NOTE | 2022-01-20 05:55 | Communication Note ---
Date of Service: January 20, 2022 Patient agitated and confused as per RN. SBP 160s, cardiac rate 120s CT head initial read from last night (01/2022) Prior dated 01/18/22 Limited bymotion artifact. Right thalamic parenchymal hemorrhage similar/slightlyincreased in size. Stable intraventricular and right subarachnoid hemorrhage. Ventriculomegaly/hydrocephalus mildlyincreased Stable minimal leftward midline shift AP Encephalopathy Progressive ICH Tachycardia Repeat CT head Change Azithromycin to Doxycycline (atypical coverage for patient's pneumonia) given QTC prolongation of 480 ms on admission EKG
[2022-01-20] MEDS ORDERED: MAGNESIUM SULFATE / D5W 1 GM/100 ML BAG IV ONE ×2 (05:56→15:57)
--- NOTE | 2022-01-20 06:40 | CT Scan Report ---
CT OF THE HEAD WITHOUT CONTRAST CLINICAL HISTORY: ams, ffup ich COMPARISON STUDY: Head CT January 19, 2022 at 10:[address] T January 18, 2022. CT DOSE: 1225.46 mGy.cm TECHNIQUE: Helical axial images of the head were obtained without IV contrast. Automated exposure con trol was utilized for the study. A dose lowering technique was utilized adhering to the principles o f ALARA. FINDINGS: This study is mildly compromised by motion artifact. An acute right thalamic hematoma measu ring 2.6 x 2.5 cm is similar to head CT of January 19, 2022 at 10:07 PM. Associated vasogenic edema with mass effect is similar to prior study. There is 4 mm of leftward midline shift, unchanged. Intra ventricular extension of hemorrhage is similar. Mild ventricular dilatation is unchanged. Associated subarachnoid hemorrhage overlying the right temporal lobe is unchanged. White matter hypodensities ar e unchanged. No new sites of hemorrhage are identified on this examination. There is no acute calvari al fracture. IMPRESSION: No significant change in a 2.6 x 2.5 cm acute right thalamic hematoma since head CT of N [id number]. Stable mass effect with leftward midline shift. Stable intraventricular and subarac hnoid extension of hemorrhage. Stable mild ventricular dilatation. ACT 112: Negative or not required by law. Electronically signed by: Galen Umanzor M.D. 01/20/2022 6:38 AM
--- NOTE | 2022-01-20 07:07 | XRay Report ---
XR chest 1V portable CLINICAL HISTORY: f/u COMPARISON STUDY: Chest radiograph January 18, 2022 at 10:04 PM. FINDINGS: Left subclavian pacer is in place. Cardiomegaly is again noted. Moderate right and small le ft pleural effusions are similar to prior exam with associated right perihilar and bibasilar opacitie s. Pulmonary edema is stable to slightly improved. IMPRESSION: 1. Pulmonary edema, stable to slightly improved since prior exam. 2. Persistent moderate right and small left pleural effusions with right perihilar and right basilar airspace opacities. Cardiomegaly. ACT 112: Negative or not required by law. Electronically signed by: Galen Umanzor M.D. 01/20/2022 7:06 AM
--- NOTE | 2022-01-20 07:27 | CT Scan Report ---
CT SCAN OF THE BRAIN WITHOUT IV CONTRAST CLINICAL HISTORY: Follow-up hemorrhage. COMPARISON STUDY: Prior CT scans of the brain, most recently dated 01/18/2022. TECHNIQUE: Unenhanced axial CT scan of the brain is performed from the vertex to the skull base. A do se lowering technique was utilized adhering to the principles of ALARA. The patient was scanned twice due to motion artifact. The examination is motion compromised. CT DOSE: 1074.96 mGy.cm FINDINGS: Brain parenchyma: There is age-related involutional change noting moderate to advanced subcortical an d periventricular microangiopathic disease. Again seen is a parenchymal hemorrhage centered in the ri ght thalamus. This measures 2.9 x 2.4, and there is surrounding edema. There is approximately 4 mm of [id number]-td-[id number] midline shift. There is intraventricular extension, with layering blood products prese nt within both lateral ventricles. This is similar to previous. Subarachnoid extension is again seen along the right temporoparietal sulci. There is no evidence of acute territorial ischemia by CT crite susan. No extra-axial fluid collection is seen. Ventricles, sulci, cisterns: Prominent secondary to involutional change. Intraventricular hemorrhage is discussed above. Ventricular caliber has modestly increased from yesterday's examination. Intracranial vasculature: There is atherosclerotic calcification of the cavernous carotid and vertebr al arteries. Calvarium: Unremarkable. Sinuses and mastoids: The visualized paranasal sinuses are clear. The mastoid air cells are well pneu matized. Orbits: The bony orbits are grossly intact. There are bilateral ocular lens implants. IMPRESSION: 1. The parenchymal hemorrhage centered in the right thalamus is unchanged to modestly increased in si ze as compared to yesterday's examination. 2. Surrounding edema is similar to previous. Mild right to left midline shift persists. 3. Again seen is subarachnoid and intraventricular extension of hemorrhage. This is similar to yester day. 4. Ventricular caliber has modestly increased from yesterday's examination. ACT 112: Negative or not required by law. Electronically signed by: Joe Metzger M.D. 01/20/2022 7:25 AM
[2022-01-20 07:57] LABS: Basophils # (auto) 0.08 K/uL (0-0.2); Eosinophils # (auto) 0.44 K/uL (0-0.50); Eosinophils % (auto) 5.5 %; Hematocrit (blood only) 34.1 % (34.1-44.9); Hemoglobin 11.2 g/dl (12.0-16.0); Immature Granulocytes # (auto) 0.03 K/uL (0.00-0.02); Immature Granulocytes % (auto) 0.4 %; Lymphocytes # (auto) 0.94 K/uL (1.2-3.4); Lymphocytes % (auto) 11.6 %; Mean Corpuscular Hemoglobin 28.5 pg (25.0-34.0); Mean Corpuscular Hgb Conc 32.8 g/dL (32.0-36.0); Mean Corpuscular Volume 86.8 fL (80.0-100.0); Mean Platelet Volume 9.6 fL (9.4-12.3); Monocytes # (auto) 0.91 K/uL (0.24-0.82); Monocytes % (auto) 11.3 %; Neutrophils # (auto) 5.67 K/uL (1.4-6.5); Neutrophils % (auto) 70.2 %; Platelet Count 237 K/uL (130-400); RDW Coefficient of Variation 14.5 % (11.5-14.5); RDW Standard Deviation 46.6 fL (36.4-46.3); Red Blood Count 3.93 M/uL (3.93-5.22); White Blood Count 8.07 K/ul (4.8-10.8)
[2022-01-20] MEDS: INSULIN ASPART PER UNIT SC SCH ×4 (07:59→20:15)
[2022-01-20 08:16] LABS: BUN Creatinine Ratio 20.4 (10-20); Calcium 9.2 mg/dl (8.5-10.1); Creatinine Clr Calc Pharmacy 93.2 ml/min; Est GFR (African American) 107.4 ml/min; Est GFR (Non-African American) 92.7 ml/min; Magnesium 1.6 mg/dl (1.7-2.4); Potassium 3.3 mmol/L (3.5-5.1)
[2022-01-20] MEDS: ENALAPRILAT 1.25 MG in DEXTROSE 5% 25 ML IV SCH ×3 (09:33→20:00)
[2022-01-20] MEDS: DOXYCYCLINE HYCLATE 100 MG in DEXTROSE 5% 100 ML IV SCH ×2 (09:34→20:01)
[2022-01-20] MEDS ORDERED: hydrALAZINE HCL 20 MG/ML VIAL IV STA (13:18)
--- NOTE | 2022-01-20 14:41 | Neurology Progress Note ---
Date of Service January 20, 2022 Assessment & Plan (1) Hemorrhagic cerebrovascular accident (CVA): Plan: Impression: The patient was brought to emergency department after she had sudden onset of left-sided weakness, and head CT showed moderate size right basal gangl ia with intraventricular extension. She has cerebral amyloid angiopathy, and hypertension, which are likely cause of intracranial hemorrhage. Primary embolic stroke with secondary hemorrhagic conversion is in differential. Clinically improving. Repeat HCT shows stable hematoma. Recommendations: We will hold aspirin. --PT/OT. She will need rehab. We should keep systolic blood pressure below 150. (2) Atrial fibrillation: Plan: Impression: The patient has long history of atrial fibrillation, status post pacemaker placement. She is not a candidate for anticoagulation because of amyloid angiopathy and prior intracranial hemorrhage. (3) Cerebral amyloid angiopathy: Plan: Impression: The patient was diagnosed with cerebral amyloid angiopathy, which we will increase risk of intracranial hemorrhage. (4) Diabetes mellitus, type 2: (5) Hypertension: (6) Tachy-karthik syndrome: Admission and Anticipated Discharge Date Admission Date: January 18, 2022 Subjective She is alert, with dense left-sided hemiparesis and some left hemineglect. She has been able to eat pured diet. Complaining of some neck pain but no headache. Repeat brain MRI showed stable right basal ganglia hematoma with some extension to ventricles and subarachnoid space. Blood pressure control has been satisfactory. The case is discussed with family. Review of Systems Review of Systems: All systems reviewed & are unremarkable except as noted in Subjective Physical Exam Physical Exam: General Examination: Constitutional: Well developed person in no acute distress. HEENT: Normal exam with inspection. CV: Hearth rhythm is paced and regular. Neck: Supple, no carotid bruits. Lungs: Non-labored and comfortable breathing. Abdomen: Soft, non-tender, non-distended. Skin: Discoloration of skin and distal lower extremities. Extremities: 2-3+ pitting edema in ankles and feet bilaterally. NEUROLOGICAL EXAMINATION: Mental Status: Alert and oriented to place and person. Not oriented to time. Cranial Nerves: II-XII are intact. No nystagmus. Funduscopy: Unable to visualize Motor: The patient moves right upper and lower extremity normally. Left upper and lower extremity strength is diminished around 2+/5. Tone: Decreased tone in left upper and lower extremities. Sensory: Unable to assess reliably. Coordination: Unable to assess. Speech: Fluent, comprehension is intact. Gait: Unable to assess. Musculoskeletal: Normal muscle bulk, no atrophy. Results & Data ([facility]) Vital Signs (Past 12 Hours) Vital Signs Temp Pulse Pulse Resp BP BP Pulse Ox 01/20/22 12:36 67 190/77 H 01/20/22 12:29 36.7 C 67 18 190/77 H 98 01/20/22 07:49 01/20/22 07:19 36.8 C 78 19 180/73 H 98 01/20/22 05:04 124 H 167/97 H 01/20/22 05:03 124 H 167/97 H 01/20/22 03:36 36.7 C 82 18 188/66 H 94 O2 Del Method O2 Flow Rate 01/20/22 12:36 01/20/22 12:29 Nasal Cannula 1.5 01/20/22 07:49 Nasal Cannula 1 01/20/22 07:19 Nasal Cannula 1 01/20/22 05:04 01/20/22 05:03 01/20/22 03:36 Nasal Cannula 1 Laboratory Results Laboratory Results - last 24 hr 01/19/22 01/19/22 01/20/22 16:27 19:54 06:58 WBC 8.07 RBC 3.93 Hgb 11.2 L Hct 34.1 MCV 86.8 MCH 28.5 MCHC 32.8 RDW Std Deviation 46.6 H RDW Coeff of Sb 14.5 Plt Count 237 MPV 9.6 Immature Gran % (Auto) 0.4 Neut % (Auto) 70.2 Lymph % (Auto) 11.6 Caroline % (Auto) 11.3 Eos % (Auto) 5.5 Baso % (Auto) 1.0 Neut # (Auto) 5.67 Lymph # (Auto) 0.94 L Caroline # (Auto) 0.91 H Eos # (Auto) 0.44 Baso # (Auto) 0.08 Immature Gran # (Auto) 0.03 H Sodium Potassium Chloride Carbon Dioxide Anion Gap BUN Creatinine Est Cr Clr Drug Dosing Est GFR ( Amer) Est GFR (Non-Af Amer) BUN/Creatinine Ratio Glucose POC Glucose 118 H 182 H Calcium Magnesium 01/20/22 01/20/22 01/20/22 06:58 07:18 11:38 WBC RBC Hgb Hct MCV MCH MCHC RDW Std Deviation RDW Coeff of Sb Plt Count MPV Immature Gran % (Auto) Neut % (Auto) Lymph % (Auto) Caroline % (Auto) Eos % (Auto) Baso % (Auto) Neut # (Auto) Lymph # (Auto) Caroline # (Auto) Eos # (Auto) Baso # (Auto) Immature Gran # (Auto) Sodium 139 Potassium 3.3 L Chloride 103 Carbon Dioxide 30 Anion Gap 6 BUN 10 Creatinine 0.49 L Est Cr Clr Drug Dosing 93.2 Est GFR ( Amer) 107.4 Est GFR (Non-Af Amer) 92.7 BUN/Creatinine Ratio 20.4 H Glucose 102 H POC Glucose 100 H 118 H Calcium 9.2 Magnesium 1.6 L Diagnostic Findings Chest X-Ray 01/18/22 11:39 XR chest 1V portable CLINICAL HISTORY: Stroke Like Symptoms TECHNIQUE: Single frontal radiograph of the chest was obtained. Comparison: Comparison is made to chest radiograph 09/13/2021 FINDINGS: Dual lead pacemaker is seen. Cardiomegaly is noted. The aortic arch is calcified. Prominence and cephalization of the vasculature is seen. Airspace opacities are seen in the right lower lung. Moderate right and small left pleural effusion. IMPRESSION: 1. Moderate right and small left pleural effusion with associated airspace opacities which may represent atelectasis, pneumonia, and/or aspiration. 2. Mild pulmonary edema. Stable cardiomegaly. ACT 112: Negative or not required by law. Electronically signed by: Mayo Miller M.D. 01/18/2022 12:[address] 01/18/22 11:39 CT OF THE HEAD WITHOUT CONTRAST CLINICAL HISTORY: Stroke Like Symptoms COMPARISON STUDY: Head CT and CTA of the head September 29, 2021. TECHNIQUE: Helical axial images of the head were obtained without IV contrast. Automated exposure control was utilized for the study. A dose lowering technique was utilized adhering to the principles of ALARA. FINDINGS: This exam is compromised by motion artifact. An acute hematoma, measuring 2.4 x 2 cm, within the right thalamus is noted. There is mild associated vasogenic edema with minimal mass effect. Intraventricular extension of hemorrhage is noted with hemorrhage within the right lateral ventricle and the third ventricle. There is no evidence for hydrocephalus. There may be trace hemorrhage within the occipital horns of the lateral ventricles. A small amount of acute hemorrhage overlying the right temporal lobe is noted. White matter hypodensities favor small vessel disease. There is no evidence for herniation. Basal cisterns are patent. No displaced calvarial fractures are identified. IMPRESSION: 1. Acute right thalamic hematoma, measuring 2.4 x 2 cm. Mild associated vasogenic edema. Intraventricular extension of hemorrhage, as above. No evidence for hydrocephalus. Findings discussed with Dr. Stubbs at time of dictation. 2. A small amount of acute hemorrhage within or overlying the right temporal lobe. This favors subarachnoid hemorrhage although parenchymal bleed could appear similar. 3. Exam compromised by motion artifact. ACT 112: Negative or not required by law. Electronically signed by: Galen Umanzor M.D. 01/18/2022 12:[address] 01/18/22 21:00 CT SCAN OF THE BRAIN WITHOUT IV CONTRAST CLINICAL HISTORY: Follow-up hemorrhage. COMPARISON STUDY: CT of the brain dated 01/18/2022. CT of the brain performed earlier the same day 01/18/2022. TECHNIQUE: Unenhanced axial CT scan of the brain is performed from the vertex to the skull base. A dose lowering technique was utilized adhering to the principles of ALARA. The patient was scanned twice due to motion artifact. The examination is motion compromised. CT DOSE: 1913.44 mGy.cm FINDINGS: Brain parenchyma: There is age-related involutional change noting moderate to advanced subcortical and periventricular microangiopathic disease. Again seen is a parenchymal hemorrhage centered in the right thalamus. This measures 2.6 x 2.2 cm, and there is surrounding edema. There is approximately 4 mm of [id number] midline shift. There is intraventricular extension, with layering blood products present within both lateral ventricles. Intraventricular blood has significantly increased as compared to today's earlier examination. Subarachnoid extension is again seen along the right temporoparietal sulci. There is no evidence of acute territorial ischemia by CT criteria. No extra-axial fluid collection is seen. Ventricles, sulci, cisterns: Prominent secondary to involutional change. Intraventricular hemorrhage is discussed above. Ventricular caliber is unchanged from today's earlier examination. Intracranial vasculature: There is atherosclerotic calcification of the cavernous carotid and vertebral arteries. Calvarium: Unremarkable. Sinuses and mastoids: The visualized paranasal sinuses are clear. The mastoid air cells are well pneumatized. Orbits: The bony orbits are grossly intact. There are bilateral ocular lens implants. IMPRESSION: 1. The parenchymal hemorrhage centered in the right thalamus is unchanged to modestly increased in size as compared to today's earlier examination. 2. Surrounding edema has somewhat increased. There is mild [id number] midline shift. 3. Again seen is subarachnoid and intraventricular extension of hemorrhage. Intraventricular blood has significantly increased from today's earlier examination. 4. Ventricular caliber is unchanged from today's earlier examination. ACT 112: Negative or not required by law. Electronically signed by: Joe Metzger M.D. 01/18/2022 9:48 PM Chest X-Ray 01/18/22 21:53 SINGLE VIEW CHEST CLINICAL HISTORY: Dyspnea. FINDINGS: An AP, portable, upright chest radiograph is compared to study dated 01/18/2022. The examination is degraded by portable technique, apical lordotic positioning, and patient rotation. A 2-lead cardiac pacemaker is unchanged in position. The heart is enlarged noting atherosclerotic calcification of the thoracic area. There is pulmonary vascular congestion with evidence of interstitial edema. There are layering pleural effusions with dependent consolidation. No pneumothorax is seen. The skeletal structures are osteopenic. The bony thorax is grossly intact. IMPRESSION: 1. Cardiomegaly and cardiac pacemaker with evidence of congestive failure and pulmonary edema. This has worsened as compared to today's earlier examination. 2. Layering pleural effusions with dependent consolidation. ACT 112: Negative or not required by law. Electronically signed by: Joe Metzger M.D. 01/18/2022 11:[address] 01/19/22 21:00 CT SCAN OF THE BRAIN WITHOUT IV CONTRAST CLINICAL HISTORY: Follow-up hemorrhage. COMPARISON STUDY: Prior CT scans of the brain, most recently dated 01/18/2022. TECHNIQUE: Unenhanced axial CT scan of the brain is performed from the vertex to the skull base. A dose lowering technique was utilized adhering to the principles of ALARA. The patient was scanned twice due to motion artifact. The examination is motion compromised. CT DOSE: 1074.96 mGy.cm FINDINGS: Brain parenchyma: There is age-related involutional change noting moderate to advanced subcortical and periventricular microangiopathic disease. Again seen is a parenchymal hemorrhage centered in the right thalamus. This measures 2.9 x 2.4, and there is surrounding edema. There is approximately 4 mm of [id number] midline shift. There is intraventricular extension, with layering blood products present within both lateral ventricles. This is similar to previous. Subarachnoid extension is again seen along the right temporoparietal sulci. There is no evidence of acute territorial ischemia by CT criteria. No extra-axial fluid collection is seen. Ventricles, sulci, cisterns: Prominent secondary to involutional change. Intraventricular hemorrhage is discussed above. Ventricular caliber has modestly increased from yesterday's examination. Intracranial vasculature: There is atherosclerotic calcification of the cavernous carotid and vertebral arteries. Calvarium: Unremarkable. Sinuses and mastoids: The visualized paranasal sinuses are clear. The mastoid air cells are well pneumatized. Orbits: The bony orbits are grossly intact. There are bilateral ocular lens implants. IMPRESSION: 1. The parenchymal hemorrhage centered in the right thalamus is unchanged to modestly increased in size as compared to yesterday's examination. 2. Surrounding edema is similar to previous. Mild right to left midline shift persists. 3. Again seen is subarachnoid and intraventricular extension of hemorrhage. This is similar to yesterday. 4. Ventricular caliber has modestly increased from yesterday's examination. ACT 112: Negative or not required by law. Electronically signed by: Joe Metzger M.D. 01/20/2022 7:[address] 01/20/22 05:49 CT OF THE HEAD WITHOUT CONTRAST CLINICAL HISTORY: ams, ffup ich COMPARISON STUDY: Head CT January 19, 2022 at 10:[address] T January 18, 2022. CT DOSE: 1225.46 mGy.cm TECHNIQUE: Helical axial images of the head were obtained without IV contrast. Automated exposure control was utilized for the study. A dose lowering technique was utilized adhering to the principles of ALARA. FINDINGS: This study is mildly compromised by motion artifact. An acute right thalamic hematoma measuring 2.6 x 2.5 cm is similar to head CT of January 19, 2022 at 10:07 PM. Associated vasogenic edema with mass effect is similar to prior study. There is 4 mm of leftward midline shift, unchanged. Intraventricular extension of hemorrhage is similar. Mild ventricular dilatation is unchanged. Associated subarachnoid hemorrhage overlying the right temporal lobe is unchanged. White matter hypodensities are unchanged. No new sites of hemorrhage are identified on this examination. There is no acute calvarial fracture. IMPRESSION: No significant change in a 2.6 x 2.5 cm acute right thalamic hematoma since head CT of January 19, 2022. Stable mass effect with leftward midline shift. Stable intraventricular and subarachnoid extension of hemorrhage. Stable mild ventricular dilatation. ACT 112: Negative or not required by law. Electronically signed by: Galen Umanzor M.D. 01/20/2022 6:38 AM Chest X-Ray 01/20/22 08:00 XR chest 1V portable CLINICAL HISTORY: f/u COMPARISON STUDY: Chest radiograph January 18, 2022 at 10:04 PM. FINDINGS: Left subclavian pacer is in place. Cardiomegaly is again noted. Moderate right and small left pleural effusions are similar to prior exam with associated right perihilar and bibasilar opacities. Pulmonary edema is stable to slightly improved. IMPRESSION: 1. Pulmonary edema, stable to slightly improved since prior exam. 2. Persistent moderate right and small left pleural effusions with right perihilar and right basilar airspace opacities. Cardiomegaly. ACT 112: Negative or not required by law. Electronically signed by: Galen Umanzor M.D. 01/20/2022 7:06 AM
[2022-01-20] MEDS ORDERED: LIDOCAINE 5% 1 PATCH TD SCH (15:00)
--- NOTE | 2022-01-20 15:39 | Hospitalist Progress Note ---
Date of Service January 20, 2022 Assessment & Plan (1) Intracranial hemorrhage: (2) Hemorrhagic cerebrovascular accident (CVA): (3) Cerebral amyloid angiopathy: Plan: Presenting from [facility] for evaluation after acute onset left sided weakness and facial droop Head CT - Acute right thalamic hematoma, measuring 2.4 x 2 cm. Mild associated vasogenic edema. Intraventricular extension of hemorrhage, as above. No evidence for hydrocephalus. A small amount of acute hemorrhage within or overlying the right temporal lobe. This favors subarachnoid hemorrhage although parenchymal bleed could appear similar. Patient with prior history of hemorrhagic CVA in 2019 in the setting of Coumadin therapy and cerebral amyloid angiopathy. 08/2021 s/p fall with subarachnoid hemorrhage and right MCA clot s/p thrombectomy. Patient expressed to ED physician that she did not want any invasive interventions. Family said patient does not want any invasive intervention Admitting team discussed case with [place] [facility] [facility] as well as neurosurgery recommended to keep SBP below 150 CT head repeat last night showed no significant change in a 2.6 x 2.5 cm acute right thalamic hematoma since head CT of January 19, 2022. Stable mass effect with leftward midline shift. Stable intraventricular and subarachnoid extension of hemorrhage. Stable mild ventricular dilatation. Case discussed with Neurology - No additional imaging needing Continue to hold aspirin Nicotine patch was placed last night to avoid rebound HTN since pt was on oral clonidine that held due to difficulty swallow Speech on board and recommended to continue puree diet Will restart Oral med, ok to crush Continue PT/OT Continue monitor closely (4) Abnormal CXR: Plan: CXR showed Cardiomegaly and cardiac pacemaker with evidence of congestive failure and pulmonary edema. Layering pleural effusions with dependent consolidation. Repeat CXR on 01/19/22 showed pulmonary edema, stable to slightly improved since prior exam. Persistent moderate right and small left pleural effusions with right perihilar and right basilar airspace opacities. Azithromycin was changed to Doxycycline due to QTC 482 Continue ceftriaxone Will resume PO lasix 60mg BID (5) Atrial fibrillation: Plan: hx of, not anticoagulated secondary to prior hemorrhagic CVA and cerebral amyloid angiopathy Currently on IV metoprolol 2.5mg IV q6h Will resume oral metoprolol (6) Diabetes mellitus, type 2: Plan: Hba1c 5.3 diet controlled Continue insulin sliding scale Continue monitor BS Hypokalemia Potassium 3.3 today Potassium replaced Continue monitor BMP (7) Tachy-karthik syndrome: (8) Status post placement of cardiac pacemaker: Plan: pacer interrogation (9) DVT prophylaxis: Plan: SCDs due to acute hemorrhagic CVA Code status DNR Admission and Anticipated Discharge Date Admission Date: January 18, 2022 Subjective Pt was seen and examined for follow up of hemorrhagic stroke Lying in bed with no acute distress with family member at bedside She was agitated and confused last night Denies any chest pain, palpitation, dizziness and SOB Review of Systems Review of Systems: All systems reviewed & are unremarkable except as noted in Subjective Physical Exam Physical Exam: General- No acute distress Head- atraumatic Eyes- PERRL, EOMI, ENT- oropharynx clear Neck- supple, no JVD Lungs- clear to auscultation Heart- irregular rhythm; no murmur Abdomen- normal bowel sounds, soft, nontender Extremities- no calf tenderness, +edema, +knee pain Neuro-has been sleeping for the most part today, +Left upper and lower extremity strength is diminished around 2+/5, able to move toes when scratching bottom of feet Skin- warm & dry Results & Data Results & Data ([facility]) Vital Signs (Past 12 Hours) Vital Signs Temp Pulse Pulse Resp BP BP Pulse Ox 01/20/22 15:18 36.7 C 130 H 21 174/90 H 94 01/20/22 12:36 67 190/77 H 01/20/22 12:29 36.7 C 67 18 190/77 H 98 01/20/22 07:49 01/20/22 07:19 36.8 C 78 19 180/73 H 98 01/20/22 05:04 124 H 167/97 H 01/20/22 05:03 124 H 167/97 H 01/20/22 03:36 36.7 C 82 18 188/66 H 94 O2 Del Method O2 Flow Rate 01/20/22 15:18 Nasal Cannula 1.5 01/20/22 12:36 01/20/22 12:29 Nasal Cannula 1.5 01/20/22 07:49 Nasal Cannula 1 01/20/22 07:19 Nasal Cannula 1 01/20/22 05:04 01/20/22 05:03 01/20/22 03:36 Nasal Cannula 1
[2022-01-20] MEDS: LIDOCAINE 4% CREAM 15 GM TUBE EXT PRN (15:44)
[2022-01-20] MEDS ORDERED: METOPROLOL TARTRATE 1 MG/ML VIAL IV PRN (15:51)
[2022-01-20] MEDS ORDERED: DIGOXIN 125 MCG in SYRINGE 9.5 ML IV STA (15:54)
[2022-01-20] MEDS: POTASSIUM CHLORIDE / WTR 10 MEQ/100 ML PLCT IV SCH ×6 (16:35→23:24)
[2022-01-20] MEDS: cefTRIAXone SODIUM 1,000 MG in DEXTROSE 5% 50 ML IV SCH (16:43)
[2022-01-20] MEDS: METOPROLOL TARTRATE 1 MG/ML VIAL IV PRN (19:05)
[2022-01-20] MEDS: METOPROLOL TARTRATE 100 MG TAB PO SCH (19:06)
[2022-01-20] MEDS: cloNIDine HCL 0.1 MG TAB PO SCH (20:01)
[2022-01-20] MEDS: FUROSEMIDE 20 MG TAB PO SCH (20:01)
[2022-01-21] MEDS: POTASSIUM CHLORIDE / WTR 10 MEQ/100 ML PLCT IV SCH ×3 (00:21→19:47)
[2022-01-21] MEDS: LIDOCAINE 4% CREAM 15 GM TUBE EXT PRN ×2 (01:46→21:19)
[2022-01-21] MEDS: ACETAMINOPHEN 1,000 MG/100 ML VIAL IV SCH ×2 (01:47→11:20)
[2022-01-21] MEDS: ENALAPRILAT 1.25 MG in DEXTROSE 5% 25 ML IV SCH ×4 (02:04→20:01)
[2022-01-21] MEDS: LEVOTHYROXINE SODIUM 100 MCG TABLET PO SCH (05:43)
[2022-01-21] MEDS: INSULIN ASPART PER UNIT SC SCH ×4 (08:07→20:56)
[2022-01-21] MEDS: METOPROLOL TARTRATE 100 MG TAB PO SCH ×2 (08:08→21:19)
[2022-01-21] MEDS: DIGOXIN 0.125 MG TAB PO SCH (08:08)
[2022-01-21] MEDS: FUROSEMIDE 20 MG TAB PO SCH ×2 (08:09→21:19)
[2022-01-21] MEDS: cloNIDine HCL 0.1 MG TAB PO SCH ×3 (08:09→21:19)
[2022-01-21] MEDS: METOPROLOL TARTRATE 1 MG/ML VIAL IV PRN (08:09)
[2022-01-21] MEDS ORDERED: hydrALAZINE HCL 20 MG/ML VIAL IV STA (08:10)
[2022-01-21] MEDS: DOXYCYCLINE HYCLATE 100 MG in DEXTROSE 5% 100 ML IV SCH ×2 (08:11→20:18)
[2022-01-21] MEDS ORDERED: ONDANSETRON INJ 2 MG/ML 2 ML VIAL IV PRN (10:02)
--- NOTE | 2022-01-21 10:55 | Pharmacy Report ---
- Date of Service January 21, 2022 - Pharmacy CVA/TIA Medication Review Medications to Prevent Stroke handout has been added to the patients discharge packet. Antiplatelet(s) * On hold due to hemorrhagic CVA Cholesterol * High intensity statin deferred due to age >75 with history of hemorrhagic stroke DVT Prophylaxis * SCD knee Therapeutic Anticoagulation * Hx Afib/Aflutter noted, but anticoagulation is being deferred due to amyloid angiopathy and prior intracranial hemorrhage Type 2 Diabetes * Patient does not have T2DM (HbA1c 5.3%, on no antidiabetic medications)
--- NOTE | 2022-01-21 11:13 | XRay Report ---
XR chest 1V portable HISTORY: Shortness of breath. COMPARISON: Chest 01/20/2022. FINDINGS: No pneumothorax. The heart remains enlarged. Pulmonary edema, bilateral pleural effusions, and bibasilar densities persist. The left-sided dual-chamber pacemaker. IMPRESSION: No change in the pulmonary edema, bilateral pleural effusions, and bibasilar densities. ACT 112: Negative or not required by law. Electronically signed by: Evgeny Frank M.D. 01/21/2022 11:12 AM
[2022-01-21] MEDS ORDERED: ACETAMINOPHEN 1,000 MG/100 ML VIAL IV PRN (11:42)
[2022-01-21 11:52] LABS: BUN Creatinine Ratio 23.9 (10-20); Calcium 9.6 mg/dl (8.5-10.1); Creatinine Clr Calc Pharmacy 101.3 ml/min; Est GFR (African American) 109.7 ml/min; Est GFR (Non-African American) 94.6 ml/min; Phosphorus 2.8 mg/dl (2.5-4.9); Potassium 3.4 mmol/L (3.5-5.1)
[2022-01-21] MEDS: oxyCODONE HCL IR 5 MG TAB (IMMEDIATE RELEASE) PO SCH ×2 (13:11→20:00)
--- NOTE | 2022-01-21 13:39 | Palliative Care Progress Note ---
Date of Service January 21, 2022 Assessment & Plan (1) Pain: Plan: knee pain with arthritis. Persistent despite routine tylenol. Will add low dose oxycodone. (2) Palliative care encounter: Plan: Talked with daughter, Awilda, at bedside. "Sherif" participated in conversation when able but was frequently dozing. She has a POLST from which indicates that she would not want CPR but would want hospitalization with limited interventions. Initially after she presented to ER with cerebral hemorrhage, family had been considering comfort measures only. After discussion with hospitalist, they decided to continue supportive care and monitor for a few days to get a better sense of her rehab potential and prognosis. She has been awake at times but is frequently sleeping. She has worked with PT and is motivated though rehab potential may be limited. Awilda notes that she is not bouncing back as much as she did with her prior CVAs. Given her clearly expressed wishes, plan will be to continue current level of care with hope for rehab. However, if she were to have a complication or decompensate, Awilda would want to shift focus of care to comfort at that time. That would be the same goal for care at [facility] with shift to comfort care rather than return to hospital. We will meet tomorrow to discuss updating POLST form. Awilda would like to speak with her brothers in the meantime. Discussed with RN and Dr. Dash. Admission and Anticipated Discharge Date Admission Date: January 18, 2022 Subjective Lethargic but arouses briefly. Complains of pain in her left knee. Frequently asking for position change. She does tolerate pureed diet and applesauce. Per RN, had some problems with her secretions earlier this morning. Review of Systems Review of Systems: ESAS Pain 2/3 Dyspnea 0/3 Nausea 1/3 Drowsiness 2/3 PPS 30% Physical Exam Constitutional: no acute distress ENMT: Mouth: + dry oral mucous membranes Respiratory: + uses accessory muscles Cardiovascular: Rate/Rhythm: regular rate and regular rhythm LE edema Gastrointestinal (Abdomen): soft, nontender Neurologic: confused at times left sided weakness Results & Data ([facility]) Vital Signs (Past 12 Hours) Vital Signs Temp Pulse Pulse Resp BP BP Pulse Ox 01/21/22 11:47 99.0 F 100 H 19 174/76 H 95 01/21/22 07:00 76 01/21/22 08:09 195/77 H 01/21/22 08:08 74 01/21/22 07:06 97.9 F 74 17 195/77 H 98 01/21/22 03:42 97.7 F 60 18 184/91 H 92 01/21/22 02:03 73 188/80 H O2 Del Method O2 Flow Rate 01/21/22 11:47 Nasal Cannula 1.5 01/21/22 07:00 01/21/22 08:09 01/21/22 08:08 01/21/22 07:06 Nasal Cannula 1.5 01/21/22 03:42 Nasal Cannula 1 01/21/22 02:03 PG Care Time/CCT Total # of Minutes Spent Total Time Spent: 40 Total Time Spent with Patient: Total time spent is greater than 50% in coordination of care (as documented) at patient's floor/unit and/or counseling patient:goals of care, symptom management, family education and support Coding Level of Care Code 96793 Subseq Hosp Care Lvl 3 Diagnoses Pain R52 Palliative care encounter Z51.5
--- NOTE | 2022-01-21 16:41 | Hospitalist Progress Note ---
Date of Service January 21, 2022 Assessment & Plan (1) Intracranial hemorrhage: (2) Hemorrhagic cerebrovascular accident (CVA): (3) Cerebral amyloid angiopathy: Plan: Presenting from [facility] for evaluation after acute onset left sided weakness and facial droop Head CT - Acute right thalamic hematoma, measuring 2.4 x 2 cm. Mild associated vasogenic edema. Intraventricular extension of hemorrhage, as above. No evidence for hydrocephalus. A small amount of acute hemorrhage within or overlying the right temporal lobe. This favors subarachnoid hemorrhage although parenchymal bleed could appear similar. Patient with prior history of hemorrhagic CVA in 2019 in the setting of Coumadin therapy and cerebral amyloid angiopathy. 08/2021 s/p fall with subarachnoid hemorrhage and right MCA clot s/p thrombectomy. Patient expressed to ED physician that she did not want any invasive interventions. Family said patient does not want any invasive intervention Admitting team discussed [place] with [place] [facility] as well as neurosurgery recommended to keep SBP below 150 CT head repeat last night showed no significant change in a 2.6 x 2.5 cm acute right thalamic hematoma since head CT of January 19, 2022. Stable mass effect with leftward midline shift. Stable intraventricular and subarachnoid extension of hemorrhage. Stable mild ventricular dilatation. Case discussed with Neurology - No additional imaging needing Continue to hold aspirin Nicotine patch was placed last night to avoid rebound HTN since pt was on oral clonidine that held due to difficulty swallow Oral BP med resumed Speech on board and recommended to continue puree diet Continue PT/OT Continue monitor closely (4) Abnormal CXR: Plan: CXR showed Cardiomegaly and cardiac pacemaker with evidence of congestive failure and pulmonary edema. Layering pleural effusions with dependent consolidation. Repeat CXR on 01/19/22 showed pulmonary edema, stable to slightly improved since prior exam. Persistent moderate right and small left pleural effusions with right perihilar and right basilar airspace opacities. Azithromycin was changed to Doxycycline due to QTC 482 Continue ceftriaxone Continue PO lasix 60mg BID (5) Atrial fibrillation: Plan: hx of, not anticoagulated secondary to prior hemorrhagic CVA and cerebral amyloid angiopathy IV metoprolol 5mg IV q6h prn for HR above 110 Continue oral metoprolol and digoxin (6) Diabetes mellitus, type 2: Plan: Hba1c 5.3 diet controlled Continue insulin sliding scale Continue monitor BS Hypokalemia Potassium 3.4 today Potassium replaced Continue monitor BMP (7) Tachy-karthik syndrome: (8) Status post placement of cardiac pacemaker: Plan: pacer interrogation (9) DVT prophylaxis: Plan: SCDs due to acute hemorrhagic CVA Code status DNR Admission and Anticipated Discharge Date Admission Date: January 18, 2022 Subjective Pt was seen and examined for follow up of hemorrhagic stroke Lying in bed with no acute distress She seems more sleepy this morning Her breathing seems to be a little labor Denies any chest pain, palpitation, dizziness Review of Systems Review of Systems: All systems reviewed & are unremarkable except as noted in Subjective Physical Exam Physical Exam: General- No acute distress Head- atraumatic Eyes- PERRL, EOMI, ENT- oropharynx clear Neck- supple, no JVD Lungs- clear to auscultation Heart- irregular rhythm; no murmur Abdomen- normal bowel sounds, soft, nontender Extremities- no calf tenderness, +edema, +knee pain Neuro-has been sleeping for the most part today, +Left upper and lower extremity strength is diminished around 2+/5, able to move toes when scratching bottom of feet Skin- warm & dry Results & Data Results & Data ([facility]) Vital Signs (Past 12 Hours) Vital Signs Temp Pulse Pulse Resp BP BP Pulse Ox 01/21/22 11:47 37.2 C 100 H 19 174/76 H 95 01/21/22 07:00 76 01/21/22 08:09 195/77 H 01/21/22 08:08 74 01/21/22 07:06 36.6 C 74 17 195/77 H 98 O2 Del Method O2 Flow Rate 01/21/22 11:47 Nasal Cannula 1.5 01/21/22 07:00 01/21/22 08:09 01/21/22 08:08 01/21/22 07:06 Nasal Cannula 1.5
[2022-01-21] MEDS ORDERED: LABETALOL HCL IV 5 MG/ML 20ML IV STA (16:54)
[2022-01-21] MEDS: cefTRIAXone SODIUM 1,000 MG in DEXTROSE 5% 50 ML IV SCH (17:00)
[2022-01-22] MEDS: oxyCODONE HCL IR 5 MG TAB (IMMEDIATE RELEASE) PO SCH ×2 (00:32→06:35)
[2022-01-22] MEDS: ENALAPRILAT 1.25 MG in DEXTROSE 5% 25 ML IV SCH ×2 (02:44→10:23)
[2022-01-22] MEDS: METOPROLOL TARTRATE 1 MG/ML VIAL IV PRN (03:03)
[2022-01-22] MEDS: LEVOTHYROXINE SODIUM 100 MCG TABLET PO SCH (05:16)
[2022-01-22 09:04] LABS: BUN Creatinine Ratio 30.6 (10-20); Calcium 9.7 mg/dl (8.5-10.1); Creatinine Clr Calc Pharmacy 94.5 ml/min; Est GFR (African American) 107.4 ml/min; Est GFR (Non-African American) 92.7 ml/min; Magnesium 1.6 mg/dl (1.7-2.4); Potassium 3.4 mmol/L (3.5-5.1)
[2022-01-22] MEDS: cloNIDine HCL 0.1 MG TAB PO SCH (10:13)
[2022-01-22] MEDS: DIGOXIN 0.125 MG TAB PO SCH (10:13)
[2022-01-22] MEDS: FUROSEMIDE 20 MG TAB PO SCH (10:17)
[2022-01-22] MEDS: METOPROLOL TARTRATE 100 MG TAB PO SCH (10:17)
[2022-01-22] MEDS: DOXYCYCLINE HYCLATE 100 MG in DEXTROSE 5% 100 ML IV SCH (10:23)
[2022-01-22] MEDS: INSULIN ASPART PER UNIT SC SCH (11:00)
[2022-01-22] MEDS ORDERED: LORazepam 0.5 MG in SYRINGE 0 ML IV PRN (11:11)
[2022-01-22] MEDS ORDERED: ONDANSETRON INJ 2 MG/ML 2 ML VIAL IV PRN (11:11)
--- NOTE | 2022-01-22 11:44 | Palliative Care Progress Note ---
Date of Service January 22, 2022 Assessment & Plan (1) Pain: Plan: Controlled on current medication. PRN hydromorphone added if she is not able to take oxycodone. (2) Palliative care encounter: Plan: I met with her daughter, Awilda Jordan, at bedside. She has spoken with her brothers and all are in agreement. Initial plan had been watchful waiting to see if Sherif would improve and be able to do rehab. She has recovered from previous CVAs. Unfortunately, she has had pain not controlled with IV tylenol, poor po intake and increasing lethargy. She has not had any purposeful movement of her left arm and only slight movement of her left leg. Family understands that her rehab potential is limited under these circumstances. Sherif has been quite clear about her wishes and family requests that focus of care shift from disease management to comfort and symptom management. We discussed changes in medications with use of medications for comfort and symptom management only. Discussed with Dr. Dash. Admission and Anticipated Discharge Date Admission Date: January 18, 2022 Subjective More lethargic today. Opens eyes briefly. Denies pain. She has had oxycodone total of 20mg in last 24 hours. Review of Systems Review of Systems: Unobtainable due to reduced consciousness Physical Exam Constitutional: no acute distress Respiratory: normal respiratory effort; no labored breathing Cardiovascular: upper and lower extremity edema Neurologic: + not awake left sided weakness Results & Data ([facility]) Vital Signs (Past 12 Hours) Vital Signs Temp Pulse Pulse Resp BP BP Pulse Ox 01/22/22 08:01 97.7 F 60 16 168/69 H 99 01/22/22 02:49 98.1 F 16 144/76 H 94 01/22/22 03:03 79 168/71 H O2 Del Method O2 Flow Rate 01/22/22 08:01 Room Air 01/22/22 02:49 Room Air 2 01/22/22 03:03 PG Care Time/CCT Total # of Minutes Spent Total Time Spent: 43 Total Time Spent with Patient: Total time spent is greater than 50% in coordination of care (as documented) at patient's floor/unit and/or counseling patient:symptom management, prognosis, goals of care, family education and support Coding Level of Care Code 00406 Prolonged Care-adt'l 30m Diagnoses Pain R52 Palliative care encounter Z51.5
[2022-01-22] MEDS ORDERED: oxyCODONE HCL IR 5 MG TAB (IMMEDIATE RELEASE) PO PRN (11:46)
--- NOTE | 2022-01-22 17:57 | Hospitalist Progress Note ---
Date of Service January 22, 2022 Assessment & Plan (1) Intracranial hemorrhage: (2) Hemorrhagic cerebrovascular accident (CVA): (3) Cerebral amyloid angiopathy: (4) Abnormal CXR: (5) Atrial fibrillation: (6) Diabetes mellitus, type 2: (7) Tachy-karthik syndrome: (8) Status post placement of cardiac pacemaker: Plan: Presenting from [facility] for evaluation after acute onset left sided weakness and facial droop Head CT - Acute right thalamic hematoma, measuring 2.4 x 2 cm. Mild associated vasogenic edema. Intraventricular extension of hemorrhage, as above. No evidence for hydrocephalus. A small amount of acute hemorrhage within or overlying the right temporal lobe. This favors subarachnoid hemorrhage although parenchymal bleed could appear similar. Patient with prior history of hemorrhagic CVA in 2019 in the setting of Coumadin therapy and cerebral amyloid angiopathy. 08/2021 s/p fall with subarachnoid hemorrhage and right MCA clot s/p thrombectomy. Patient expressed to ED physician that she did not want any invasive interventions. Family said patient does not want any invasive intervention Admitting team discussed case with [place] [facility] [place] as well as neurosurgery recommended to keep SBP below 150 CT head repeat last night showed no significant change in a 2.6 x 2.5 cm acute right thalamic hematoma since head CT of January 19, 2022. Stable mass effect with leftward midline shift. Stable intraventricular and subarachnoid extension of hemorrhage. Stable mild ventricular dilatation. Case discussed with Neurology - No additional imaging needing Continue to hold aspirin Clonidine patch was placed to avoid rebound HTN since pt was on oral clonidine that held due to difficulty swallow Speech on board and recommended to continue to hold all PO intake due to risk of aspiration since pt has been more drowsy 01/22 Transition with comfort care Palliative care on board Daughter understood that all lab and non comfort medication discontinued Continue Ativan and opioid for comfort measure (9) DVT prophylaxis: Plan: SCDs due to acute hemorrhagic CVA Code status DNR / Comdfort care Admission and Anticipated Discharge Date Admission Date: January 18, 2022 Subjective Pt was seen and examined for follow up of hemorrhagic stroke Lying in bed with daughter at bedside She felt more lethargy this morning Palliative team met with family and pt was transition to comfort care Review of Systems Review of Systems: All systems reviewed & are unremarkable except as noted in Subjective Physical Exam Physical Exam: General- lethargy. does not look to be in distress Eyes- eyes closed ENT- Tracheae midline Neck- supple, no JVD Lungs- diminished BS Heart- irregular rhythm; no murmur Neuro - sleepy Results & Data Results & Data ([facility]) Vital Signs (Past 12 Hours) Vital Signs Temp Pulse Resp BP Pulse Ox O2 Del Method O2 Flow Rate 01/22/22 08:00 Nasal Cannula 2 01/22/22 08:01 36.5 C 60 16 168/69 H 99 Room Air
[2022-01-22] MEDS: LORazepam 0.5 MG TAB PO PRN (20:53)
[2022-01-23] MEDS: HYDROmorphone INJ 0.5 MG/0.5 ML SYR IV PRN ×4 (07:41→18:24)
--- NOTE | 2022-01-23 09:40 | Hospitalist Progress Note ---
Date of Service January 23, 2022 Assessment & Plan (1) Intracranial hemorrhage: (2) Hemorrhagic cerebrovascular accident (CVA): (3) Cerebral amyloid angiopathy: (4) Abnormal CXR: (5) Atrial fibrillation: (6) Diabetes mellitus, type 2: (7) Tachy-karthik syndrome: (8) Status post placement of cardiac pacemaker: Plan: Presenting from [facility] for evaluation after acute onset left sided weakness and facial droop Head CT - Acute right thalamic hematoma, measuring 2.4 x 2 cm. Mild associated vasogenic edema. Intraventricular extension of hemorrhage, as above. No evidence for hydrocephalus. A small amount of acute hemorrhage within or overlying the right temporal lobe. This favors subarachnoid hemorrhage although parenchymal bleed could appear similar. Patient with prior history of hemorrhagic CVA in 2019 in the setting of Coumadin therapy and cerebral amyloid angiopathy. 08/2021 s/p fall with subarachnoid hemorrhage and right MCA clot s/p thrombectomy. Patient expressed to ED physician that she did not want any invasive interventions. Family said patient does not want any invasive intervention Admitting team discussed case with neurosurgery in [facility] [place] as well as neurosurgery recommended to keep SBP below 150 CT head repeat showed no significant change in a 2.6 x 2.5 cm acute right thalamic hematoma since head CT of January 19, 2022. Stable mass effect with leftward midline shift. Stable intraventricular and subarachnoid extension of hemorrhage. Stable mild ventricular dilatation. Case discussed with Neurology - No additional imaging needing Continue to hold aspirin Clonidine patch was placed to avoid rebound HTN since pt was on oral clonidine that held due to difficulty swallow Speech on board and recommended to continue to hold all PO intake due to risk of aspiration since pt has been more drowsy 01/22 per previous hospitalist Transition with comfort care Palliative care on board Daughter understood that all lab and non comfort medication discontinued Continue Ativan and opioid for comfort measure (9) DVT prophylaxis: Plan: Code status DNR / Comfort care Admission and Anticipated Discharge Date Admission Date: January 18, 2022 Subjective Pt was seen and examined for follow up of hemorrhagic stroke Lying in bed with daughter at bedside She is opening her eyes but is not answering any questions Overall she appears comfortable Palliative team met following for comfort care Review of Systems Review of Systems: Unobtainable due to cognitive status Physical Exam Physical Exam: General- elderly F laying in bed in NAD Lungs- diminished BS Heart- irregular rhythm; no murmur Abdomen - soft Neuro - opens her eyes but does not answer questions Results & Data Results & Data ([facility]) Medications Administered Current Inpatient Medications Glycopyrrolate (Glycopyrrolate 0.2 Mg/Ml Vial) 0.2 mg IV Q4H PRN PRN Reason: secretions Stop: 02/20/22 11:37 Hydromorphone HCl (Hydromorphone Inj 0.5 Mg/0.5 Ml Syr) 0.5 mg IV Q2H PRN PRN Reason: Pain or Respiratory Distress Stop: 02/05/22 11:10 Last Admin: 01/23/22 07:41 Dose: 0.5 mg Lorazepam 0.5 mg/ Syringe 0.5 mls @ 2 mls/min IV Q4H PRN PRN Reason: Anxiety/Agitation Stop: 02/21/22 11:10 Lidocaine (Lidocaine 4% Cream 15 Gm Tube) 1 appln EXT Q6H PRN PRN Reason: Pain Stop: 02/19/22 14:57 Last Admin: 01/21/22 21:19 Dose: 1 appln Lorazepam (Lorazepam 0.5 Mg Tab) 0.5 mg PO Q4H PRN PRN Reason: Anxiety/Agitation Stop: 02/21/22 11:10 Last Admin: 01/22/22 20:53 Dose: 0.5 mg Ondansetron HCl (Ondansetron Inj 2 Mg/Ml 2 Ml Vial) 4 mg IV Q4H PRN PRN Reason: Nausea &/or Vomiting Stop: 02/21/22 11:10 Oxycodone HCl (Oxycodone Hcl Ir 5 Mg Tab (Immediate Release)) 5 mg PO Q4H PRN PRN Reason: pain Stop: 02/05/22 11:44
[2022-01-23] MEDS: GLYCOPYRROLATE 0.2 MG/ML VIAL IV PRN (20:00)
[2022-01-24] MEDS: HYDROmorphone INJ 0.5 MG/0.5 ML SYR IV PRN ×3 (07:58→20:32)
--- NOTE | 2022-01-24 13:35 | Hospitalist Progress Note ---
Date of Service January 24, 2022 Assessment & Plan (1) Intracranial hemorrhage: (2) Hemorrhagic cerebrovascular accident (CVA): (3) Cerebral amyloid angiopathy: (4) Abnormal CXR: (5) Atrial fibrillation: (6) Diabetes mellitus, type 2: (7) Tachy-karthik syndrome: (8) Status post placement of cardiac pacemaker: Plan: Presenting from [facility] for evaluation after acute onset left sided weakness and facial droop Head CT - Acute right thalamic hematoma, measuring 2.4 x 2 cm. Mild associated vasogenic edema. Intraventricular extension of hemorrhage, as above. No evidence for hydrocephalus. A small amount of acute hemorrhage within or overlying the right temporal lobe. This favors subarachnoid hemorrhage although parenchymal bleed could appear similar. Patient with prior history of hemorrhagic CVA in 2019 in the setting of Coumadin therapy and cerebral amyloid angiopathy. 08/2021 s/p fall with subarachnoid hemorrhage and right MCA clot s/p thrombectomy. Patient expressed to ED physician that she did not want any invasive interventions. Family said patient does not want any invasive intervention Admitting team discussed case with neurosurgery in [facility] Neu[place] as well as neurosurgery recommended to keep SBP below 150 CT head repeat last night showed no significant change in a 2.6 x 2.5 cm acute right thalamic hematoma since head CT of January 19, 2022. Stable mass effect with leftward midline shift. Stable intraventricular and subarachnoid extension of hemorrhage. Stable mild ventricular dilatation. Case discussed with Neurology - No additional imaging needing Continue to hold aspirin Clonidine patch was placed to avoid rebound HTN since pt was on oral clonidine that held due to difficulty swallow Speech on board and recommended to continue to hold all PO intake due to risk of aspiration since pt has been more drowsy 01/22 Transition with comfort care Palliative care on board Daughter understood that all lab and non comfort medication discontinued Continue Ativan and opioid for comfort measure 01/24 Clinically pt seems unchanged, appears comfortable (9) DVT prophylaxis: Plan: Code status DNR / Comfort care Admission and Anticipated Discharge Date Admission Date: January 18, 2022 Subjective Pt was seen and examined for follow up of hemorrhagic stroke Lying in bed with daughter at bedside She is opening her eyes but is not answering my questions Overall she appears comfortable Palliative team following for comfort care Review of Systems Review of Systems: Unobtainable due to cognitive status Physical Exam Physical Exam: General- elderly F laying in bed in NAD Lungs- diminished BS Heart- irregular rhythm, + tachycardic; no murmur Abdomen - soft Neuro - opens her eyes but does not answer questions Results & Data Results & Data ([facility]) Vital Signs (Past 12 Hours) Vital Signs Temp Pulse Resp BP Pulse Ox O2 Del Method O2 Flow Rate 01/24/22 07:30 Nasal Cannula 2 01/24/22 08:00 36.8 C 116 H 20 197/73 H 97 Nasal Cannula 3 Medications Administered Current Inpatient Medications Glycopyrrolate (Glycopyrrolate 0.2 Mg/Ml Vial) 0.2 mg IV Q4H PRN PRN Reason: secretions Stop: 02/20/22 11:37 Last Admin: 01/23/22 20:00 Dose: 0.2 mg Hydromorphone HCl (Hydromorphone Inj 0.5 Mg/0.5 Ml Syr) 0.5 mg IV Q2H PRN PRN Reason: Pain or Respiratory Distress Stop: 02/05/22 11:10 Last Admin: 01/24/22 07:58 Dose: 0.5 mg Lorazepam 0.5 mg/ Syringe 0.5 mls @ 2 mls/min IV Q4H PRN PRN Reason: Anxiety/Agitation Stop: 02/21/22 11:10 Lidocaine (Lidocaine 4% Cream 15 Gm Tube) 1 appln EXT Q6H PRN PRN Reason: Pain Stop: 02/19/22 14:57 Last Admin: 01/21/22 21:19 Dose: 1 appln Lorazepam (Lorazepam 0.5 Mg Tab) 0.5 mg PO Q4H PRN PRN Reason: Anxiety/Agitation Stop: 02/21/22 11:10 Last Admin: 01/22/22 20:53 Dose: 0.5 mg Ondansetron HCl (Ondansetron Inj 2 Mg/Ml 2 Ml Vial) 4 mg IV Q4H PRN PRN Reason: Nausea &/or Vomiting Stop: 02/21/22 11:10 Oxycodone HCl (Oxycodone Hcl Ir 5 Mg Tab (Immediate Release)) 5 mg PO Q4H PRN PRN Reason: pain Stop: 02/05/22 11:44
[2022-01-25] MEDS: GLYCOPYRROLATE 0.2 MG/ML VIAL IV PRN (06:15)
--- NOTE | 2022-01-25 08:13 | Hospitalist Progress Note ---
Date of Service January 25, 2022 Assessment & Plan (1) Intracranial hemorrhage: (2) Hemorrhagic cerebrovascular accident (CVA): (3) Cerebral amyloid angiopathy: (4) Abnormal CXR: (5) Atrial fibrillation: (6) Diabetes mellitus, type 2: (7) Tachy-karthik syndrome: (8) Status post placement of cardiac pacemaker: Plan: Presenting from [facility] for evaluation after acute onset left sided weakness and facial droop Head CT - Acute right thalamic hematoma, measuring 2.4 x 2 cm. Mild associated vasogenic edema. Intraventricular extension of hemorrhage, as above. No evidence for hydrocephalus. A small amount of acute hemorrhage within or overlying the right temporal lobe. This favors subarachnoid hemorrhage although parenchymal bleed could appear similar. Patient with prior history of hemorrhagic CVA in 2019 in the setting of Coumadin therapy and cerebral amyloid angiopathy. 08/2021 s/p fall with subarachnoid hemorrhage and right MCA clot s/p thrombectomy. Patient expressed to ED physician that she did not want any invasive interventions. Family said patient does not want any invasive intervention Admitting team discussed case with neurosurgery in [facility] [place] Neurology as well as neurosurgery recommended to keep SBP below 150 CT head repeat last night showed no significant change in a 2.6 x 2.5 cm acute right thalamic hematoma since head CT of January 19, 2022. Stable mass effect with leftward midline shift. Stable intraventricular and subarachnoid extension of hemorrhage. Stable mild ventricular dilatation. Case discussed with Neurology - No additional imaging needing Continue to hold aspirin Clonidine patch was placed to avoid rebound HTN since pt was on oral clonidine that held due to difficulty swallow Speech on board and recommended to continue to hold all PO intake due to risk of aspiration since pt has been more drowsy 01/22 Transition with comfort care Palliative care on board Daughter understood that all lab and non comfort medication discontinued Continue Ativan and opioid for comfort measure 01/24 Clinically pt seems unchanged, appears comfortable 01/25 Patient is more awake and alert today, she reports headache. CM aware about possible DC Patient's daughter at the bedside and updated (9) DVT prophylaxis: Plan: Code status DNR / Comfort care Admission and Anticipated Discharge Date Admission Date: January 18, 2022 Subjective Pt was seen and examined for follow up of hemorrhagic stroke Lying in bed with daughter at bedside Patient is more awake and aware. She is reporting headache. Overall she appears comfortable Palliative md following for comfort care Review of Systems Review of Systems: All systems reviewed & are unremarkable except as noted in Subjective Physical Exam Physical Exam: General- elderly F laying in bed in NAD Lungs- diminished BS Heart- irregular rhythm, + tachycardic; no murmur Abdomen - soft Neuro -more awake and alert, opens her eyes , able to answer simple questions, she cannot move her left upper extremity, minimal movement of left lower extremity Results & Data Results & Data ([facility]) Vital Signs (Past 12 Hours) Vital Signs O2 Del Method 01/24/22 20:30 Room Air Medications Administered Current Inpatient Medications Glycopyrrolate (Glycopyrrolate 0.2 Mg/Ml Vial) 0.2 mg IV Q4H PRN PRN Reason: secretions Stop: 02/20/22 11:37 Last Admin: 01/25/22 06:15 Dose: 0.2 mg Hydromorphone HCl (Hydromorphone Inj 0.5 Mg/0.5 Ml Syr) 0.5 mg IV Q2H PRN PRN Reason: Pain or Respiratory Distress Stop: 02/05/22 11:10 Last Admin: 01/24/22 20:32 Dose: 0.5 mg Lorazepam 0.5 mg/ Syringe 0.5 mls @ 2 mls/min IV Q4H PRN PRN Reason: Anxiety/Agitation Stop: 02/21/22 11:10 Lidocaine (Lidocaine 4% Cream 15 Gm Tube) 1 appln EXT Q6H PRN PRN Reason: Pain Stop: 02/19/22 14:57 Last Admin: 01/21/22 21:19 Dose: 1 appln Lorazepam (Lorazepam 0.5 Mg Tab) 0.5 mg PO Q4H PRN PRN Reason: Anxiety/Agitation Stop: 02/21/22 11:10 Last Admin: 01/22/22 20:53 Dose: 0.5 mg Ondansetron HCl (Ondansetron Inj 2 Mg/Ml 2 Ml Vial) 4 mg IV Q4H PRN PRN Reason: Nausea &/or Vomiting Stop: 02/21/22 11:10 Oxycodone HCl (Oxycodone Hcl Ir 5 Mg Tab (Immediate Release)) 5 mg PO Q4H PRN PRN Reason: pain Stop: 02/05/22 11:44
[2022-01-25] MEDS: HYDROmorphone INJ 0.5 MG/0.5 ML SYR IV PRN ×2 (10:28→14:32)
[2022-01-25] MEDS: LORazepam 0.5 MG TAB PO PRN (19:49)
--- NOTE | 2022-01-26 07:41 | Hospitalist Progress Note ---
Date of Service January 26, 2022 Assessment & Plan (1) Intracranial hemorrhage: (2) Hemorrhagic cerebrovascular accident (CVA): (3) Cerebral amyloid angiopathy: (4) Abnormal CXR: (5) Atrial fibrillation: (6) Diabetes mellitus, type 2: (7) Tachy-karthik syndrome: (8) Status post placement of cardiac pacemaker: Plan: Presenting from [facility] for evaluation after acute onset left sided weakness and facial droop Head CT - Acute right thalamic hematoma, measuring 2.4 x 2 cm. Mild associated vasogenic edema. Intraventricular extension of hemorrhage, as above. No evidence for hydrocephalus. A small amount of acute hemorrhage within or overlying the right temporal lobe. This favors subarachnoid hemorrhage although parenchymal bleed could appear similar. Patient with prior history of hemorrhagic CVA in 2019 in the setting of Coumadin therapy and cerebral amyloid angiopathy. 08/2021 s/p fall with subarachnoid hemorrhage and right MCA clot s/p thrombectomy. Patient expressed to ED physician that she did not want any invasive interventions. Family said patient does not want any invasive intervention Admitting team discussed case with neurosurgery in [facility] Neurology as well as neurosurgery recommended to keep SBP below 150 CT head repeat last night showed no significant change in a 2.6 x 2.5 cm acute right thalamic hematoma since head CT of January 19, 2022. Stable mass effect with leftward midline shift. Stable intraventricular and subarachnoid extension of hemorrhage. Stable mild ventricular dilatation. Case discussed with Neurology - No additional imaging needing Continue to hold aspirin Clonidine patch was placed to avoid rebound HTN since pt was on oral clonidine that held due to difficulty swallow Speech on board and recommended to continue to hold all PO intake due to risk of aspiration since pt has been more drowsy 01/22 Transition with comfort care Palliative care on board Daughter understood that all lab and non comfort medication discontinued Continue Ativan and opioid for comfort measure 01/24 Clinically pt seems unchanged, appears comfortable 01/25 Patient is more awake and alert today, she reports headache. CM aware about possible DC Patient's daughter at the bedside and updated 01/26 Pt more anxious and tachypneic today, RN at the bedside already and provides medications Opens her eyes but does not answer questions Cont. to closely monitor (9) DVT prophylaxis: Plan: Code status DNR / Comfort care Admission and Anticipated Discharge Date Admission Date: January 18, 2022 Subjective Pt was seen and examined for follow up of hemorrhagic stroke Lying in bed with daughter at bedside Patient is awake and opening her eyes, does not answer questions. She appears more tachypneic and more anxious. RN already at the bedside, and provides medications. Palliative med involved for comfort care Review of Systems Review of Systems: Unobtainable due to cognitive status Physical Exam Physical Exam: General- elderly F laying in bed in NAD Lungs- diminished BS Heart- irregular rhythm, + tachycardic; no murmur Abdomen - soft Neuro -more awake and alert, opens her eyes , but does not answer questions (on previous exam she cannot move her left upper extremity, minimal movement of left lower extremity , but today does not follow commands) Results & Data Results & Data ([facility]) Vital Signs (Past 12 Hours) Vital Signs Temp Pulse Resp BP Pulse Ox O2 Del Method O2 Flow Rate 01/26/22 06:00 36.6 C 105 H 22 185/89 H 97 Nasal Cannula 2 01/25/22 20:10 Nasal Cannula 2 Medications Administered Current Inpatient Medications Glycopyrrolate (Glycopyrrolate 0.2 Mg/Ml Vial) 0.2 mg IV Q4H PRN PRN Reason: secretions Stop: 02/20/22 11:37 Last Admin: 01/25/22 06:15 Dose: 0.2 mg Hydromorphone HCl (Hydromorphone Inj 0.5 Mg/0.5 Ml Syr) 0.5 mg IV Q2H PRN PRN Reason: Pain or Respiratory Distress Stop: 02/05/22 11:10 Last Admin: 01/25/22 14:32 Dose: 0.5 mg Lorazepam 0.5 mg/ Syringe 0.5 mls @ 2 mls/min IV Q4H PRN PRN Reason: Anxiety/Agitation Stop: 02/21/22 11:10 Lidocaine (Lidocaine 4% Cream 15 Gm Tube) 1 appln EXT Q6H PRN PRN Reason: Pain Stop: 02/19/22 14:57 Last Admin: 01/21/22 21:19 Dose: 1 appln Lorazepam (Lorazepam 0.5 Mg Tab) 0.5 mg PO Q4H PRN PRN Reason: Anxiety/Agitation Stop: 02/21/22 11:10 Last Admin: 01/25/22 19:49 Dose: 0.5 mg Ondansetron HCl (Ondansetron Inj 2 Mg/Ml 2 Ml Vial) 4 mg IV Q4H PRN PRN Reason: Nausea &/or Vomiting Stop: 02/21/22 11:10 Oxycodone HCl (Oxycodone Hcl Ir 5 Mg Tab (Immediate Release)) 5 mg PO Q4H PRN PRN Reason: pain Stop: 02/05/22 11:44 Last Admin: 01/25/22 10:35 Dose: 5 mg
[2022-01-26] MEDS: LORazepam 0.5 MG TAB PO PRN ×2 (11:38→21:11)
[2022-01-26] MEDS: HYDROmorphone INJ 0.5 MG/0.5 ML SYR IV PRN ×2 (13:07→13:29)
[2022-01-26] MEDS: GLYCOPYRROLATE 0.2 MG/ML VIAL IV PRN (14:23)
[2022-01-27] MEDS: HYDROmorphone INJ 0.5 MG/0.5 ML SYR IV PRN ×2 (07:27→18:36)
--- NOTE | 2022-01-27 08:04 | Hospitalist Progress Note ---
Date of Service January 27, 2022 Assessment & Plan (1) Intracranial hemorrhage: (2) Hemorrhagic cerebrovascular accident (CVA): (3) Cerebral amyloid angiopathy: (4) Abnormal CXR: (5) Atrial fibrillation: (6) Diabetes mellitus, type 2: (7) Tachy-karthik syndrome: (8) Status post placement of cardiac pacemaker: Plan: Presenting from [facility] for evaluation after acute onset left sided weakness and facial droop Head CT - Acute right thalamic hematoma, measuring 2.4 x 2 cm. Mild associated vasogenic edema. Intraventricular extension of hemorrhage, as above. No evidence for hydrocephalus. A small amount of acute hemorrhage within or overlying the right temporal lobe. This favors subarachnoid hemorrhage although parenchymal bleed could appear similar. Patient with prior history of hemorrhagic CVA in 2019 in the setting of Coumadin therapy and cerebral amyloid angiopathy. 08/2021 s/p fall with subarachnoid hemorrhage and right MCA clot s/p thrombectomy. Patient expressed to ED physician that she did not want any invasive interventions. Family said patient does not want any invasive intervention Admitting team discussed case with neurosurgery in [facility] Neurology as well as neurosurgery recommended to keep SBP below 150 CT head repeat last night showed no significant change in a 2.6 x 2.5 cm acute right thalamic hematoma since head CT of January 19, 2022. Stable mass effect with leftward midline shift. Stable intraventricular and subarachnoid extension of hemorrhage. Stable mild ventricular dilatation. Case discussed with Neurology - No additional imaging needing Continue to hold aspirin Clonidine patch was placed to avoid rebound HTN since pt was on oral clonidine that held due to difficulty swallow Speech on board and recommended to continue to hold all PO intake due to risk of aspiration since pt has been more drowsy 01/22 Transition with comfort care Palliative care on board Daughter understood that all lab and non comfort medication discontinued Continue Ativan and opioid for comfort measure 01/24 Clinically pt seems unchanged, appears comfortable 01/25 Patient is more awake and alert today, she reports headache. CM aware about possible DC Patient's daughter at the bedside and updated 01/26 Pt more anxious and tachypneic today, RN at the bedside already and provides medications Opens her eyes but does not answer questions Cont. to closely monitor 01/27 Pt drowsy, does not open eyes. Medicated properly by RN (9) DVT prophylaxis: Plan: Code status DNR / Comfort care Admission and Anticipated Discharge Date Admission Date: January 18, 2022 Subjective Pt was seen and examined for follow up of hemorrhagic stroke Lying in bed in NAD She is currently quite drowsy, does not open her eyes. Per RN, patient was appropriately medicated for symptom management. Palliative med involved for comfort care Review of Systems Review of Systems: Unobtainable due to cognitive status Physical Exam Physical Exam: General- elderly F laying in bed in NAD Lungs- diminished BS Heart- irregular rhythm, + tachycardic; no murmur Abdomen - soft Neuro - drowsy, does not open her eyes (on previous exam she cannot move her left upper extremity, minimal movement of left lower extremity) Results & Data Results & Data ([facility]) Vital Signs (Past 12 Hours) Vital Signs Temp Pulse Resp BP Pulse Ox O2 Del Method O2 Flow Rate 01/27/22 07:50 36.6 C 90 16 180/86 H 98 Nasal Cannula 3 01/27/22 07:30 Nasal Cannula 3 01/26/22 21:30 Nasal Cannula 3 Medications Administered Current Inpatient Medications Glycopyrrolate (Glycopyrrolate 0.2 Mg/Ml Vial) 0.2 mg IV Q4H PRN PRN Reason: secretions Stop: 02/20/22 11:37 Last Admin: 01/26/22 14:23 Dose: 0.2 mg Hydromorphone HCl (Hydromorphone Inj 0.5 Mg/0.5 Ml Syr) 0.5 mg IV Q2H PRN PRN Reason: Pain or Respiratory Distress Stop: 02/05/22 11:10 Last Admin: 01/27/22 07:27 Dose: 0.5 mg Lorazepam 0.5 mg/ Syringe 0.5 mls @ 2 mls/min IV Q4H PRN PRN Reason: Anxiety/Agitation Stop: 02/21/22 11:10 Lidocaine (Lidocaine 4% Cream 15 Gm Tube) 1 appln EXT Q6H PRN PRN Reason: Pain Stop: 02/19/22 14:57 Last Admin: 01/21/22 21:19 Dose: 1 appln Lorazepam (Lorazepam 0.5 Mg Tab) 0.5 mg PO Q4H PRN PRN Reason: Anxiety/Agitation Stop: 02/21/22 11:10 Last Admin: 01/26/22 21:11 Dose: 0.5 mg Ondansetron HCl (Ondansetron Inj 2 Mg/Ml 2 Ml Vial) 4 mg IV Q4H PRN PRN Reason: Nausea &/or Vomiting Stop: 02/21/22 11:10 Oxycodone HCl (Oxycodone Hcl Ir 5 Mg Tab (Immediate Release)) 5 mg PO Q4H PRN PRN Reason: pain Stop: 02/05/22 11:44 Last Admin: 01/25/22 10:35 Dose: 5 mg
[2022-01-27] MEDS: LORazepam 0.5 MG TAB PO PRN (16:04)
[2022-01-28] MEDS ORDERED: bisacodyL 10 MG SUPP PR ONE (09:34)
[2022-01-28] MEDS ORDERED: HYOSCYAMINE SULFATE 0.125 MG TAB PO PRN (11:40)
[2022-01-28] MEDS ORDERED: MoRPHine SULFATE 5 MG/0.25 ML UDP PO PRN (11:40)
--- NOTE | 2022-01-28 13:26 | Palliative Care Progress Note ---
Date of Service January 28, 2022 Assessment & Plan (1) Pain: Plan: She has had prn hydromorphone with 1 mg in last 24 hours. She appears comfortable. She will be going to SNF in the next day or two with hospice and will not be on IV medications. We could convert to hydromorphone tablet which would have to be crushed and given in slurry. Chart lists a sensitivity to morphine which her daughter thinks may have been headache, but she's not sure if it was morphine. Hospice at SNF will likely start morphine. Will convert to equivalent dose and use roxanol here to monitor how she tolerates this. Discussed with Awilda, who agrees. (2) Palliative care encounter: Plan: I spoke with Awilda on the phone. She has been very supportive of her mother and its been a long stretch. She tells me that she does have support from her . We reviewed medication adjustment to simulate what she would get at SNF in anticipation of her discharge. She is agreeable to this. We also discussed updating POLST form from her previous form which indicated limited interventions. At this time, Awilda feels that DNR, comfort measures with no hospitalization, trial of antibiotic and no artificial feeding would be most in line with Sherif's wishes. POLST form completed per our conversation and Awilda will sign when she comes in later today. Admission and Anticipated Discharge Date Admission Date: January 18, 2022 Subjective Awake. No po intake. Confused. Perseverating about needing to move her bowels. She has had constipation and received a suppository this morning with result. Review of Systems Review of Systems: Unobtainable due to cognitive status tolerates routine care per RN Physical Exam Constitutional: no acute distress ENMT: Mouth: + dry oral mucous membranes Respiratory: normal respiratory effort; no labored breathing Neurologic: awake; not confused Genitourinary: incontinent Results & Data ([facility]) Vital Signs (Past 12 Hours) Vital Signs Temp Pulse Resp BP Pulse Ox O2 Del Method O2 Flow Rate 01/28/22 09:32 Nasal Cannula 2 01/28/22 07:32 97.7 F 112 H 16 198/100 H 99 Nasal Cannula 3 PG Care Time/CCT Total # of Minutes Spent Total Time Spent: 26 Total Time Spent with Patient: Total time spent is greater than 50% in coordination of care (as documented) at patient's floor/unit and/or counseling patient:[id number], symptom management, family education and support, POLST discussion Coding Level of Care Code 16095 Subseq Hosp Care Lvl 2 Diagnoses Pain R52 Palliative care encounter Z51.5
--- NOTE | 2022-01-28 14:08 | Hospitalist Progress Note ---
Date of Service January 28, 2022 Assessment & Plan (1) Intracranial hemorrhage: (2) Hemorrhagic cerebrovascular accident (CVA): (3) Cerebral amyloid angiopathy: (4) Abnormal CXR: (5) Atrial fibrillation: (6) Diabetes mellitus, type 2: (7) Tachy-karthik syndrome: (8) Status post placement of cardiac pacemaker: Plan: Presenting from [facility] for evaluation after acute onset left sided weakness and facial droop Head CT - Acute right thalamic hematoma, measuring 2.4 x 2 cm. Mild associated vasogenic edema. Intraventricular extension of hemorrhage, as above. No evidence for hydrocephalus. A small amount of acute hemorrhage within or overlying the right temporal lobe. This favors subarachnoid hemorrhage although parenchymal bleed could appear similar. Patient with prior history of hemorrhagic CVA in 2019 in the setting of Coumadin therapy and cerebral amyloid angiopathy. 08/2021 s/p fall with subarachnoid hemorrhage and right MCA clot s/p thrombectomy. Patient expressed to ED physician that she did not want any invasive interventions. Admitting team discussed case with neurosurgery in [facility] and patient was initially treated conservatively with BP control and serial head CTs. Due to progressive decline, patient was transitioned to comfort care on 01/22. 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 Patient is currently lying in bed, in no acute distress, however she does report that she feels that she would have a bowel movement, and does not answer any other questions. Patient was given suppository earlier. Perative medicine following, appreciate their input. Likely discharge with hospice on Friday. MD Omar Subjective Follow-up for intracranial hemorrhage, on comfort measures. Patient seen and examined. Appears to be resting comfortably in bed, minimally opens eyes to verbal stimuli however does not speak. Review of Systems Review of Systems: Unobtainable due to reduced consciousness Physical Exam Constitutional: no acute distress Respiratory: normal respiratory effort; no respiratory distress Auscultation: + diminished lung sounds Cardiovascular: Rate/Rhythm: regular rate and + irregularly irregular Neurologic: Opens eyes to verbal stimuli however does not follow commands Results & Data Results & Data ([facility]) Vital Signs (Past 12 Hours) Vital Signs Temp Pulse Resp BP Pulse Ox O2 Del Method O2 Flow Rate 01/28/22 09:32 Nasal Cannula 2 01/28/22 07:32 36.5 C 112 H 16 198/100 H 99 Nasal Cannula 3
[2022-01-28] MEDS ORDERED: HYDROmorphone HCL 2 MG TAB PO PRN (16:48)
[2022-01-28] MEDS ORDERED: ONDANSETRON INJ 2 MG/ML 2 ML VIAL IV ONE (18:50)
[2022-01-28] MEDS: LORazepam 0.5 MG TAB PO PRN (20:40)
[2022-01-29] MEDS ORDERED: ONDANSETRON INJ 2 MG/ML 2 ML VIAL IV STA (02:14)
[2022-01-29] MEDS ORDERED: ONDANSETRON INJ 2 MG/ML 2 ML VIAL ONE (02:18)
[2022-01-29] MEDS ORDERED: PROMETHAZINE HCL 12.5 MG in SODIUM CHLORIDE 0.9% 50 ML IV STA (06:50)
--- NOTE | 2022-01-29 08:20 | XRay Report ---
KUB HISTORY: Acute generalized abdominal pain with nausea and vomiting nausea/vomiting COMPARISON: Chest radiograph 01/21/2022, pelvis radiographs 09/29/2021 FINDINGS: Cholecystectomy. Cardiomegaly with partially imaged pacer leads. Layering pleural effusions with bibasilar consolidation. Mild gaseous distention of the stomach. Mild gaseous distention involv ing loops of both large and small bowel with moderate colonic fecal retention. Obscuration of the antonieta al shadows. No renal calculi. No ureteral calculi. No pneumoperitoneum or pneumatosis. Lumbar levosc oliosis with multilevel degenerative changes. Limited exam secondary to positioning. No fracture. IMPRESSION: 1. Mild gaseous distention of the large and small bowel with moderate colonic fecal retention. 2. Cholecystectomy. 3. Layering pleural effusions with bibasilar consolidation again noted. ACT 112: Negative or not required by law. The above report was generated using voice recognition software. It may contain grammatical, syntax o r spelling errors. Electronically signed by: Judson Boyle M.D. 01/29/2022 8:18 AM
[2022-01-29] MEDS ORDERED: MAGNESIUM HYDROXIDE SUSP 30 ML UDC PO ONE (10:48)
[2022-01-29] MEDS: OLANZapine ZYDIS 5 MG ORALLY DIS. TAB PO SCH ×2 (11:38→21:10)
[2022-01-29] MEDS: ONDANSETRON INJ 2 MG/ML 2 ML VIAL IV PRN (11:38)
[2022-01-29] MEDS: HYDROmorphone INJ 0.5 MG/0.5 ML SYR IV PRN ×2 (12:25→15:21)
--- NOTE | 2022-01-29 12:27 | Palliative Care Progress Note ---
Date of Service January 29, 2022 Assessment & Plan (1) Pain: Plan: Multiple sources. Continue hydromorphone. With more lethargy and nausea, will use parenteral dosing at this time. (2) Constipation: Plan: Discussed with ZONIA Kidd. Her po intake is minimal. She did have suppository with some liquid stool which is likely overflow. She still has significant hard stool throughout. Will try MOM which is lower volume for effect. Repeat suppository if needed. Daughter would like to avoid enema. (3) Nausea: Plan: With constipation. I don't think this is related to dose of morphine. She has had persistent morphine with zofran and phenergan. Will start routine zyprexa. (4) Palliative care encounter: Plan: Talked with daughter, Awilda,at bedside. She would prefer list invasive measures with goal of comfort and symptom management only. Transfer to SNF may depend on whether symptoms are adequately controlled. Admission and Anticipated Discharge Date Admission Date: January 18, 2022 Subjective Emesis x 2 since yesterday. More lethargic. Does complain of abdominal pain. Review of Systems Review of Systems: Limited due to lethargy nods yes to pain, nausea and shortness of breath Physical Exam Constitutional: + ill appearing ENMT: Mouth: + dry oral mucous membranes Respiratory: normal respiratory effort; no labored breathing Cardiovascular: Upper and lower extremity edema Gastrointestinal (Abdomen): distended, soft, nontender KUB shows large stool burden with dilated bowel and stomach Skin: warm and dry Genitourinary: Garcia catheter Results & Data ([facility]) Vital Signs (Past 12 Hours) Vital Signs Temp Pulse Resp BP Pulse Ox O2 Del Method O2 Flow Rate 01/29/22 07:39 98.2 F 89 22 203/93 H 100 Nasal Cannula 3 PG Care Time/CCT Total # of Minutes Spent Total Time Spent: 27 Total Time Spent with Patient: Total time spent is greater than 50% in coordination of care (as documented) at patient's floor/unit and/or counseling patient: symptom management, family education and support, coordination of care Coding Level of Care Code 75966 Subseq Hosp Care Lvl 2 Diagnoses Pain R52 Constipation K59.00 Nausea R11.0 Palliative care encounter Z51.5
[2022-01-29] MEDS ORDERED: bisacodyL 10 MG SUPP PR ONE (14:30)
--- NOTE | 2022-01-29 14:44 | Hospitalist Progress Note ---
Date of Service January 29, 2022 Assessment & Plan (1) Intracranial hemorrhage: (2) Hemorrhagic cerebrovascular accident (CVA): (3) Cerebral amyloid angiopathy: (4) Abnormal CXR: (5) Atrial fibrillation: (6) Diabetes mellitus, type 2: (7) Tachy-karthik syndrome: (8) Status post placement of cardiac pacemaker: Plan: Presenting from [facility] for evaluation after acute onset left sided weakness and facial droop Head CT - Acute right thalamic hematoma, measuring 2.4 x 2 cm. Mild associated vasogenic edema. Intraventricular extension of hemorrhage, as above. No evidence for hydrocephalus. A small amount of acute hemorrhage within or overlying the right temporal lobe. This favors subarachnoid hemorrhage although parenchymal bleed could appear similar. Patient with prior history of hemorrhagic CVA in 2019 in the setting of Coumadin therapy and cerebral amyloid angiopathy. 08/2021 s/p fall with subarachnoid hemorrhage and right MCA clot s/p thrombectomy. Patient expressed to ED physician that she did not want any invasive interventions. Admitting team discussed case with neurosurgery in [facility] [place] [place] and patient was initially treated conservatively with BP control and serial head CTs. Due to progressive decline, patient was transitioned to comfort care on 01/22. Palliative care following. Remains on IV Dilaudid while inpatient. Received p.o. morphine yesterday and developed nausea however this was likely secondary to severe constipation and not the morphine. 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 Sadia SHIN, pls refer to her note for further detail. Patient is seen in follow up of hemorrhagic stroke, now on comfort care. Yesterday pt w/ constipation and nausea, received suppository, today MOM to help w/ symptoms. Currently lying in bed, in no acute distress, resting. She appears quite comfortable. Does not pen her eyes to voice or light touch. Palliative medicine following, appreciate their input. Likely discharge with hospice on Friday. MD Omar Subjective Follow-up for intracranial hemorrhage, on comfort measures. Had nausea and vomiting this morning. Complaining of abdominal discomfort. More alert than yesterday however difficulty participating in conversation. Received suppository yesterday w/ subsequent diarrhea. Review of Systems Review of Systems: Deferred due to LIFE INSURANCE SPECIALIST status Physical Exam Constitutional: + ill appearing; no acute distress Gastrointestinal (Abdomen): Percussion/Palpation: + abdomen tender; + abdomen not soft (Semi firm) Neurologic: + focal motor deficit (Dense left hemiparesis) Psychiatric: Orientation: alert and oriented to person Results & Data Results & Data ([place]) Vital Signs (Past 12 Hours) Vital Signs Temp Pulse Resp BP Pulse Ox O2 Del Method O2 Flow Rate 01/29/22 07:39 36.8 C 89 22 203/93 H 100 Nasal Cannula 3
[2022-01-29] MEDS ORDERED: bisacodyL 10 MG SUPP PR PRN (15:06)
--- NOTE | 2022-01-30 10:19 | Discharge Summary ---
Date of Service January 30, 2022 Admission HPI Per Admitting Provider 81 year old female with PMH DM type II, hypothyroidism, dyslipidemia, cerebral amyloid angiopathy, HTN, hemorrhagic CVA, chronic diastolic CHF, permanent atrial fibrillation not anticoagulated due to prior hemorrhagic CVA, fall 09/21 with subarachnoid hemorrhage and clot in the right MCA s/p thrombectomy, and other problems below who presents to the ED with strokelike symptoms. Patient resides at [facility] [place] and while showering this morning, patient was noted to have acute onset left facial droop and left-sided weakness. Patient was sent to the ED for further evaluation. Upon arrival to the ED, head CT showed acute right thalamic hematoma, measuring 2.4 x 2 cm. Patient had expressed to the ED physician Dr. Stubbs that she did not want any invasive interventions to be done. Presenting BP 203/94. Patient was placed on nicardipine and fentanyl drips in an attempt to control blood pressure. By the time of my exam, patient is mostly non verbal but was able to communicate with Dr. Joyner through hand grasping. Admission Exam Per Admitting Provider Constitutional: + ill appearing vitals as above ENMT: external ear and nose normal, oropharynx normal Respiratory: normal respiratory effort; no respiratory distress Auscultation: + diminished lung sounds Cardiovascular: Rate/Rhythm: + irregularly irregular Vessels: normal peripheral pulses Extremities: + edema (+2-3 edema BLE) Gastrointestinal (Abdomen): normal bowel sounds, soft, nontender, no hepatosplenomegaly Musculoskeletal: Extremities: no cyanosis and no clubbing Skin: no rashes, warm and dry Neurologic: minimally responsive to verbal stimuli, non verbal, + left facial droop with flaccid left side, strong right hand grasp Principal Diagnosis Hemorrhagic CVA Discharge Exam Patient resting in bed comfortably, does not appear to be in any acute distress. Full exam deferred due to comfort measure status. Discharge Data Allergies Allergy/AdvReac Type Severity Reaction Status Date / Time Penicillins Allergy Intermediate Rash Verified 01/18/22 12:55 codeine AdvReac Intermediate Headache Verified 01/18/22 12:55 Opioids - Morphine Analogues AdvReac Intermediate Headache Verified 01/18/22 12:55 Influenza Virus Vaccines AdvReac Unknown Unknown Verified 01/18/22 12:55 Consultations 01/18/22 13:44 Consult Palliative Care Routine 01/18/22 16:23 Consult Neurology Routine Ordered Studies Laboratory Results WBC 8.07 K/ul (4.8-10.8) 01/20/22 06:58 RBC 3.93 M/uL (3.93-5.22) 01/20/22 06:58 Hgb 11.2 g/dl (12.0-16.0) L 01/20/22 06:58 Hct 34.1 % (34.1-44.9) 01/20/22 06:58 MCV 86.8 fL (80.0-100.0) 01/20/22 06:58 MCH 28.5 pg (25.0-34.0) 01/20/22 06:58 MCHC 32.8 g/dL (32.0-36.0) 01/20/22 06:58 RDW Std Deviation 46.6 fL (36.4-46.3) H 01/20/22 06:58 RDW Coeff of Sb 14.5 % (11.5-14.5) 01/20/22 06:58 Plt Count 237 K/uL (130-400) 01/20/22 06:58 MPV 9.6 fL (9.4-12.3) 01/20/22 06:58 Immature Gran % (Auto) 0.4 % 01/20/22 06:58 Neut % (Auto) 70.2 % 01/20/22 06:58 Lymph % (Auto) 11.6 % 01/20/22 06:58 [place] % (Auto) 11.3 % 01/20/22 06:58 Eos % (Auto) 5.5 % 01/20/22 06:58 Baso % (Auto) 1.0 % 01/20/22 06:58 Neut # (Auto) 5.67 K/uL (1.4-6.5) 01/20/22 06:58 Lymph # (Auto) 0.94 K/uL (1.2-3.4) L 01/20/22 06:58 [place] # (Auto) 0.91 K/uL (0.24-0.82) H 01/20/22 06:58 Eos # (Auto) 0.44 K/uL (0-0.50) 01/20/22 06:58 Baso # (Auto) 0.08 K/uL (0-0.2) 01/20/22 06:58 Immature Gran # (Auto) 0.03 K/uL (0.00-0.02) H 01/20/22 06:58 PT 13.1 Seconds (9.0-12.0) H 01/18/22 12:13 INR 1.2 (0.9-1.1) H 01/18/22 12:13 APTT 32.2 Seconds (21.0-31.0) H 01/18/22 12:13 PTT Ratio 1.2 01/18/22 12:13 Sodium 139 mmol/L (136-145) 01/22/22 08:19 Potassium 3.4 mmol/L (3.5-5.1) L 01/22/22 08:19 Chloride 103 mmol/L (98-107) 01/22/22 08:19 Carbon Dioxide 33 mmol/L (21-32) H 01/22/22 08:19 Anion Gap 3 (3-11) 01/22/22 08:19 BUN 15 mg/dl (6-23) 01/22/22 08:19 Creatinine 0.49 mg/dl (0.6-1.2) L 01/22/22 08:19 Est Cr Clr Drug Dosing 94.5 ml/min 01/22/22 08:19 Est GFR ( Amer) 107.4 ml/min 01/22/22 08:19 Est GFR (Non-Af Amer) 92.7 ml/min 01/22/22 08:19 BUN/Creatinine Ratio 30.6 (10-20) H 01/22/22 08:19 Glucose 90 mg/dl (70-99(Fasting)) 01/22/22 08:19 POC Glucose 91 mg/dl (70-99) 01/22/22 07:26 Estimat Average Glucose 105 mg/dl 01/19/22 06:20 Hemoglobin A1c 5.3 % (4.5-5.6) 01/19/22 06:20 Calcium 9.7 mg/dl (8.5-10.1) 01/22/22 08:19 Phosphorus 2.8 mg/dl (2.5-4.9) 01/21/22 11:05 Magnesium 1.6 mg/dl (1.7-2.4) L 01/22/22 08:19 Total Bilirubin 1.3 mg/dl (0.2-1.0) H 01/18/22 12:13 AST 14 U/L (13-39) 01/18/22 12:13 ALT 8 U/L (7-52) 01/18/22 12:13 Alkaline Phosphatase 83 U/L (34-104) 01/18/22 12:13 Troponin I High Sens 11.0 pg/ml (0-14) D 01/18/22 12:13 Total Protein 6.6 gm/dl (6.0-8.3) 01/18/22 12:13 Albumin 3.7 gm/dl (3.4-5.0) 01/18/22 12:13 Globulin 2.9 gm/dl (2.5-4.0) 01/18/22 12:13 Albumin/Globulin Ratio 1.3 (0.9-2) 01/18/22 12:13 Triglycerides 65 mg/dl (0-150) 01/19/22 06:20 Cholesterol 69 mg/dl (0-200) 01/19/22 06:20 LDL Cholesterol, Calc 16 mg/dl 01/19/22 06:20 VLDL Cholesterol, Calc 13 mg/dl (0-30) 01/19/22 06:20 HDL Cholesterol 40 mg/dl 01/19/22 06:20 Cholesterol/HDL Ratio 1.7 (0-5) 01/19/22 06:20 Nasal Screen MRSA (PCR) Negative (Negative) 01/18/22 17:57 Digoxin 1.0 ng/ml (0.8-2.0) 01/18/22 12:16 SARS-CoV-2, RNA, NAAT NEGATIVE (NEGATIVE) 01/18/22 13:[address] 01/20/22 05:49 CT OF THE HEAD WITHOUT CONTRAST CLINICAL HISTORY: ams, ffup ich COMPARISON STUDY: Head CT January 19, 2022 at 10:[address] T January 18, 2022. CT DOSE: 1225.46 mGy.cm TECHNIQUE: Helical axial images of the head were obtained without IV contrast. Automated exposure control was utilized for the study. A dose lowering technique was utilized adhering to the principles of ALARA. FINDINGS: This study is mildly compromised by motion artifact. An acute right thalamic hematoma measuring 2.6 x 2.5 cm is similar to head CT of January 19, 2022 at 10:07 PM. Associated vasogenic edema with mass effect is similar to prior study. There is 4 mm of leftward midline shift, unchanged. Intraventricul ar extension of hemorrhage is similar. Mild ventricular dilatation is unchanged. Associated subarachnoid hemorrhage overlying the right temporal lobe is unchanged. White matter hypodensities are unchanged. No new sites of hemorrhage are identified on this examination. There is no acute calvarial fracture. IMPRESSION: No significant change in a 2.6 x 2.5 cm acute right thalamic hematoma since head CT of January 19, 2022. Stable mass effect with leftward midline shift. Stable intraventricular and subarachnoid extension of hemorrhage. Stable mild ventricular dilatation. ACT 112: Negative or not required by law. Electronically signed by: Galen Umanzor M.D. 01/20/2022 6:38 AM Chest X-Ray 01/21/22 10:01 XR chest 1V portable HISTORY: Shortness of breath. COMPARISON: Chest 01/20/2022. FINDINGS: No pneumothorax. The heart remains enlarged. Pulmonary edema, bilateral pleural effusions, and bibasilar densities persist. The left-sided dual-chamber pacemaker. IMPRESSION: No change in the pulmonary edema, bilateral pleural effusions, and bibasilar densities. ACT 112: Negative or not required by law. Electronically signed by: Evgeny Frank M.D. 01/21/2022 11:12 AM KUB X-Ray 01/29/22 06:50 KUB HISTORY: Acute generalized abdominal pain with nausea and vomiting nausea/vomiting COMPARISON: Chest radiograph 01/21/2022, pelvis radiographs 09/29/2021 FINDINGS: Cholecystectomy. Cardiomegaly with partially imaged pacer leads. Layering pleural effusions with bibasilar consolidation. Mild gaseous distention of the stomach. Mild gaseous distention involving loops of both large and small bowel with moderate colonic fecal retention. Obscuration of the renal shadows. No renal calculi. No ureteral calculi. No pneumoperitoneum or pneumatosis. Lumbar levoscoliosis with multilevel degenerative changes. Limited exam secondary to positioning. No fracture. IMPRESSION: 1. Mild gaseous distention of the large and small bowel with moderate colonic fecal retention. 2. Cholecystectomy. 3. Layering pleural effusions with bibasilar consolidation again noted. ACT 112: Negative or not required by law. The above report was generated using voice recognition software. It may contain grammatical, syntax or spelling errors. Electronically signed by: Judson Boyle M.D. 01/29/2022 8:18 AM Hospital Course (1) Intracranial hemorrhage: (2) Hemorrhagic cerebrovascular accident (CVA): (3) Cerebral amyloid angiopathy: (4) Abnormal CXR: (5) Atrial fibrillation: (6) Diabetes mellitus, type 2: (7) Tachy-karthik syndrome: (8) Status post placement of cardiac pacemaker: Presenting from [facility] [place] for evaluation after acute onset left sided weakness and facial droop Head CT - Acute right thalamic hematoma, measuring 2.4 x 2 cm. Mild associated vasogenic edema. Intraventricular extension of hemorrhage, as above. No evidence for hydrocephalus. A small amount of acute hemorrhage within or overlying the right temporal lobe. This favors subarachnoid hemorrhage although parenchymal bleed could appear similar. Patient with prior history of hemorrhagic CVA in 2019 in the setting of Coumadin therapy and cerebral amyloid angiopathy. 08/2021 s/p fall with subarachnoid hemorrhage and right MCA clot s/p thrombectomy. Patient expressed to ED physician that she did not want any invasive interventions. Admitting team discussed case with neurosurgery in [facility] and patient was initially treated conservatively with BP control and serial head CTs. Due to progressive decline, patient was transitioned to comfort care on 01/22. Palliative care following. Will discharge on comfort care medications including p.o. Roxanol, lorazepam, Zofran, hyoscyamine. Patient also started on scheduled olanzapine for nausea control. This can be continued if patient able to swallow. Constipation Received suppository 01/28 w/ resulting diarrhea, likely overflow KUB shows moderate colonic fecal retention Trialed MOM x 1 dose, daughter requested to avoid enema No BM since MOM given yesterday however patient is resting comfortably in bed this morning and seems to be asymptomatic from constipation. Scheduled olanzapine for nausea control, continue as needed Zofran. Consider temple ppository. Total Time Total Time Spent Total Time Spent (In Minutes): 40 Discharge Plan Discharge Items Patient Disposition: Transfer Group Home Fac Reason For Visit: Stroke Symptoms Discharge Diagnosis: Hemorrhagic CVA Activity: As commented below Activity Comment: bedrest, comfort measures Non-emergency contact: Primary Care Provider Call non-emergency contact if: you have any medication questions, your symptoms worsen and your pain is not controlled Follow-up/Referrals: Delmis Galan at [facility] [Primary Care Provider] - Diet: Other - See Diet Comment Diet Comment: as tolerated, comfort care patient Addtl Attending Provider Instructions: Patient presented on 01/18 with strokelike symptoms. Head CT showed acute right thalamic hematoma. Patient initially treated conservatively with BP control and serial head CTs. Due to progressive decline, patient was transitioned to comfort care on 01/22. Pending Studies at Discharge: No Stand-Alone Forms: My [facility] Skilled Items Patient informed of condition?: Yes DNR: Yes Discharge Level of Care: Skilled Communicable Disease: No Discharge Prognosis: Other Lines: None Urinary Catheter: Yes Medications and DC Order Prescriptions: New olanzapine 5 mg Tablet,Disintegrating 5 mg PO BID Qty: 6 0RF hyoscyamine sulfate [Levsin] 0.125 mg Tablet 0.125 mg PO Q4H PRN (Reason: secretions) Qty: 8 0RF ondansetron 4 mg tablet,disintegrating 4 mg PO Q6H PRN (Reason: nausea and vomiting) Qty: 10 0RF lorazepam 2 mg/mL concentrate 1 mg PO Q8H PRN (Reason: anxiety) Qty: 30 0RF morphine 20 mg/5 mL (4 mg/mL) solution 5 mg PO Q2H PRN (Reason: pain) Qty: 100 0RF Discontinued furosemide 40 mg tablet 60 mg PO BID atorvastatin 80 mg tablet 80 mg PO HS potassium chloride 10 mEq capsule, extended release 20 meq PO BID clonidine HCl 0.1 mg tablet 0.1 mg PO BID acetaminophen [Tylenol] 325 mg Tablet 650 mg PO Q4 PRN (Reason: Pain) loperamide 2 mg capsule 2 mg PO Q4 PRN (Reason: .LOOSE STOOLS) loperamide 2 mg capsule 2 mg PO QAM metoprolol tartrate 100 mg tablet 100 mg PO BID aspirin [Aspir-Low] 81 mg Tablet,Delayed Release (Dr/Ec) 81 mg PO DAILY triamcinolone acetonide 0.1 % Cream 1 applic TOPICAL BID Rx Instructions: APPLY TO CHEST & BACK levothyroxine 100 mcg tablet 100 mcg PO DAILY pantoprazole 40 mg tablet,delayed release (DR/EC) 40 mg PO DAILY digoxin 125 mcg (0.125 mg) tablet 125 mcg PO DAILY ferrous sulfate 325 mg (65 mg iron) Tablet,Delayed Release (Dr/Ec) 325 mg PO DAILY escitalopram oxalate 10 mg tablet 10 mg PO DAILY cholestyramine (with sugar) 4 gram powder in packet 1 ea PO [facility] melatonin 5 mg Tablet 5 mg PO HS ProSource Plus 15-100 gram-kcal/30 mL Liquid 1 ea PO AMPM Rx Instructions: 30 ML PreserVision AREDS-2 250-90-40-1 mg Capsule 1 tab PO [facility] Preparation H Gel 1 applic topical Q4 PRN (Reason: Hemorrhoids) Discharge Orders: Discharge Order (Routine); Ordered 01/30/22 Ordered By: Ave Mccullough Admission Data Admit Date/Time: 01/18/22 13:31 Attending Provider: Josh Nelson Admit Provider: Aure Joyner Primary Care Provider: Delmis Galan [facility] Other Providers: Kala Ochoa ; Aure Joyner ; Reggie Holman ; Delmis Galan [facility] ; Walter Dash ; 365,Hospice Supervising Physician Co-Signing Physician Notes Pt seen and examined by me, care coordinated w/ L. Sadia SHIN, pls refer to her note for further detail. Patient is seen in follow up of hemorrhagic stroke, now on comfort care. Yesterday pt w/ constipation and nausea, received suppository and MOM to help w/ symptoms. Currently lying in bed, in no acute distress, resting. She appears quite comfortable. Does not open her eyes to voice or light touch. Palliative medicine following while inpt, appreciate their input. Plan to likely discharge with hospice later today. MD Omar
[2022-01-30] MEDS: OLANZapine ZYDIS 5 MG ORALLY DIS. TAB PO SCH (10:52)
[2022-01-30] MEDS: ONDANSETRON INJ 2 MG/ML 2 ML VIAL IV PRN (11:24)
[2022-01-30] MEDS ORDERED: PROCHLORPERAZINE 10 MG in SYRINGE 8 ML IV ONE (12:59)
[2022-01-30] MEDS ORDERED: LORazepam 0.5 MG in SYRINGE 0 ML IV STA (13:00)
--- NOTE | 2022-02-05 16:20 | Coding Query ---
CODING QUERY To promote full compliance with coding requirements relating to patient care, provider participation is requested in all cases of clinical quality rn uncertainty. Please assist us with the question(s) below: Coding Question(s): Hemorrhagic CVA is documented in the record and the 01/18 Neurology Consultation and Neurology Progress Notes document, "Primary embolic stroke with secondary hemorrhagic conversion is in differential". Please specify below, in your clinical opinion: ( ) Possible Primary embolic stroke with secondary hemorrhagic conversion ( x ) Hemorrhagic CVA ( ) Other: Please Specify Physician's Response(s): Thank you Elizabeth Proctor Principal Diagnosis: "that condition established after study, to be chiefly responsible for occasioning the admission of the patient to the hospital for care." Co-Existing Principal Diagnosis: "when two or more diagnoses equally meet the criteria for principal diagnosis as determined by the circumstances of admission, diagnostic work up, and/or therapy provided, and the Alphabetic Index, Tabular List, or another coding guideline does not provide sequencing direction, any one of the diagnoses may be sequenced first." "When the physician has documented what appears to be a current diagnosis in the body of the record, but has not included the diagnosis in the final diagnostic statement, the physician should be asked whether the diagnosis should be added." ([facility] 2 QTR90. p3-4) ANDERSON
--- NOTE | 2022-02-05 16:37 | Coding Query ---
CODING QUERY To promote full compliance with coding requirements relating to patient care, provider participation is requested in all cases of rotating equipment engineer uncertainty. Please assist us with the question(s) below: Coding Question(s): The 01/19 Progress Note documents, "CXR showed Cardiomegaly and cardiac pacemaker with evidence of congestive failure and pulmonary edema. Layering pleural effusions with dependent consolidation. Currently on empiric azithromycin and ceftriaxone Will give lasix 20mg IVx1 Will repeat CXR in am". The H&P documents PMH chronic diastolic CHF. Please specify below, in your clinical opinion, regarding the Pulmonary Edema and Congestive Heart Failure: *Regarding PULMONARY EDEMA. Please specify further below, in your clinical opinion: ( ) Acute Pulmonary Edema. Please specify below, the most likely source of pulmonary edema: ( x ) Congestive Heart Failure ( ) Possible Pneumonia ( ) Other: Please Specify ( ) Unknown ( ) Chronic or Unspecified Pulmonary Edema. Please specify below, the most likely source of pulmonary edema: ( ) Congestive Heart Failure ( ) Possible Pneumonia ( ) Other: Please Specify ( ) Unknown *Regarding CONGESTIVE HEART FAILURE. Please specify below, in your clinical opinion: ( ) Acute on Chronic CHF ( x ) Diastolic ( ) Systolic ( ) Combined Diastolic and Systolic ( ) Acute CHF ( ) Diastolic ( ) Systolic ( ) Combined Diastolic and Systolic ( ) Chronic CHF ( ) Diastolic ( ) Systolic ( ) Combined Diastolic and Systolic Physician's Response(s): Thank you Elizabeth Proctor Principal Diagnosis: "that condition established after study, to be chiefly responsible for occasioning the admission of the patient to the hospital for care." Co-Existing Principal Diagnosis: "when two or more diagnoses equally meet the criteria for principal diagnosis as determined by the circumstances of admission, diagnostic work up, and/or therapy provided, and the Alphabetic Index, Tabular List, or another coding guideline does not provide sequencing direction, any one of the diagnoses may be sequenced first." "When the physician has documented what appears to be a current diagnosis in the body of the record, but has not included the diagnosis in the final diagnostic statement, the physician should be asked whether the diagnosis should be added." ([facility] 2 QTR90. p3-4) MTDD
== END 2022-01-30 13:48 | disposition hospice, inpatient (51) | DRG 64 ==
LOC: ED 11:48 → 2S 13:31 → SUATTDRO 13:31 → 2S 15:55 → 3E 01-23 17:02